=== PATIENT | female | born 1950 | race Caucasian/White ===

== ENCOUNTER → 2017-04-06 12:30 | Outpatient (CLI) | payer MEDICARE, OTHER, SELFPAY ==
[2017-04-06 16:33] LABS: AST(SGOT) 18 U/L (15-37); Alanine Aminotransfer ALT/SGPT 21 U/L (13-56); Albumin, Serum 4.1 g/dL (3.2-5.0); Alkaline Phosphatase 72 U/L (45-117); Anion Gap 11 (5-15); BUN 23 mg/dL (7-18); Calcium,Total 9.2 mg/dL (8.5-10.1); Chloride 104 mmol/L (98-107); Creatinine, Serum 1.28 mg/dL (0.55-1.02); EST Glomerular Filtration Rate 44 mL/min (>60); Est Glom Filt Rate - Afr Amer 53 mL/min (>60); Ferritin 268 ng/mL (8-252); GGTP 46 U/L (5-55); Globulin 4.2 g/dL (2.2-4.2); Glucose 153 mg/dL (74-106); Iron 76 ug/dL (50-170); Potassium 4.9 mmol/L (3.5-5.1); Protein, Total 8.3 g/dL (6.4-8.2); Sodium Level 136 mmol/L (136-145)
== END ==
PROVIDERS: Family Provider Family Medicine; PCP Family Medicine; Visit Provider Family Medicine
DX: K74.60 Unspecified cirrhosis of liver (principal)
CPT/HCPCS: 36415; 80053; 82140; 82728; 82977; 83540

== ENCOUNTER → 2017-06-05 13:50 | Outpatient (CLI) | payer MEDICARE, OTHER, SELFPAY ==
[2017-06-05 15:42] LABS: Absolute Lymphocyte Count 1.47 X10^3/ul (0.83-4.51); Absolute Neutrophil Count 5.2 X10^3/uL (2.0-7.7); Basophil# 0.04 X10^3/uL; Basophil% 0.5 % (0-1); Eosinophil# 0.12 X10^3/uL; Eosinophils% 1.6 % (0-5); Hematocrit 33.9 % (37-47); Hemoglobin 11.1 g/dl (12.0-15.0); Lymphocyte # 1.47 X10^3/ul (4.0); Lymphocyte % 20.1 % (19-41); Mean Corp Hgb Conc 32.7 g/gl (32-36); Mean Corpuscular Volume 94.7 fL (81-99); Mean Platelet Vol. 11.4 fl (6.2-12.0); Monocyte# 0.46 X10^3/uL; Monocyte% 6.3 % (0-10); Neutrophil # 5.19 X10^3/uL (2.7-7.7); Platelet Count 164 K/mm3 (150-450); RBC Distribution Width CV 14.4 % (11.6-14.6); RBC Distribution Width SD 47.3 fl (35.1-43.9); Red Blood Count 3.58 M/mm3 (4.2-5.4); White Blood Count 7.3 K/mm3 (4.4-11.0)
[2017-06-05 15:47] LABS: AST(SGOT) 17 U/L (15-37); Alanine Aminotransfer ALT/SGPT 20 U/L (13-56); Albumin, Serum 4.1 g/dL (3.2-5.0); Alkaline Phosphatase 93 U/L (45-117); Anion Gap 8 (5-15); BUN 20 mg/dL (7-18); BUN/Creat Ratio 16.3 RATIO (10-20); Calcium,Total 9.3 mg/dL (8.5-10.1); Chloride 106 mmol/L (98-107); Creatinine, Serum 1.23 mg/dL (0.55-1.02); EST Glomerular Filtration Rate 46 mL/min (>60); Est Glom Filt Rate - Afr Amer 56 mL/min (>60); Ferritin 169 ng/mL (8-252); Globulin 4.2 g/dL (2.2-4.2); Glucose 225 mg/dL (74-106); Iron 87 ug/dL (50-170); Potassium 4.7 mmol/L (3.5-5.1); Prealbumin 21.4 mg/dL (20.0-40.0); Protein, Total 8.3 g/dL (6.4-8.2); Sodium Level 140 mmol/L (136-145)
[2017-06-05 16:31] LABS: POSITIVE COUNT NO; POSITIVE DIFFERENTIAL NO; POSITIVE MORPHOLOGY NO
== END ==
PROVIDERS: Family Provider Family Medicine; PCP Family Medicine; Visit Provider Family Medicine
DX: E11.8 Type 2 diabetes mellitus with unspecified complications (principal); K74.60 Unspecified cirrhosis of liver
CPT/HCPCS: 80053; 82140; 82728; 83540; 84134; 85025

== ENCOUNTER → 2017-06-21 11:33 | Outpatient (CLI) | payer MEDICARE, OTHER, SELFPAY ==
[2017-06-21 14:39] LABS: Anion Gap 8 (5-15); BUN 28 mg/dL (7-18); BUN/Creat Ratio 22.8 RATIO (10-20); Calcium,Total 9.6 mg/dL (8.5-10.1); Chloride 102 mmol/L (98-107); Creatinine, Serum 1.23 mg/dL (0.55-1.02); EST Glomerular Filtration Rate 46 mL/min (>60); Est Glom Filt Rate - Afr Amer 56 mL/min (>60); Glucose 207 mg/dL (74-106); Potassium 5.7 mmol/L (3.5-5.1); Sodium Level 133 mmol/L (136-145)
== END ==
PROVIDERS: Family Medicine; Family Provider Family Medicine; PCP Family Medicine; Visit Provider Family Medicine
DX: G62.9 Polyneuropathy, unspecified (principal)
CPT/HCPCS: 36415; 80048

== ENCOUNTER → 2017-06-28 14:01 | Outpatient (CLI) | payer MEDICARE, OTHER, SELFPAY ==
--- NOTE | 2017-06-28 14:05 | ECHOCS_ITS ---
Reason For Study: ASHD Procedure This was a 2D Doppler, Color Flow transthoracic echocardiogram. The study was technically difficult. Due to body habitus. Contrast injection was performed. Exam performed in department. Left Ventricle Mild concentric left ventricular hypertrophy. The estimated ejection fraction is 65 %. Stage 1 diastolic dysfunction. No regional wall motion abnormalities noted. Right Ventricle Normal size and thickness. Normal systolic function. Atria The left atrium is mildly enlarged. Normal right atrium. Mitral Valve The mitral valve is structurally normal. No prolapse or stenosis seen. Tricuspid Valve Normal tricuspid valve. Unable to estimate RV systolic pressure due to inadequate jet, pulmonary artery pressure probably normal. Aortic Valve Normal aortic valve. Trisinus/trileaflet aortic valve. Pulmonic Valve The pulmonic valve is not well visualized. Great Vessels Normal aortic root. Normal arch. Normal inferior vena cava. Inferior vena cava collapse with sniff. Pericardium/Pleural No pericardial effusion. Medication 22 gauge I.V. with prn adaptor inserted into right arm. Diluted definity 3.0ml given slow IV push to enhance endocardial definition. MMode/2D Measurements & Calculations LVIDd: 4.4 cm IVSd: 1.3 cm Ao root diam: 3.6 cm LVIDs: 2.8 cm LVPWd: 1.3 cm RVDd: 2.5 cm FS: 35.0 % LAV(MOD-bp): 68.0 ml LA A4 area: 23.2 cm2 LAV(MOD-bp) Indexed: 34.3 ml/m2 LAV(MOD-sp2): 57.7 ml LAV(MOD-sp4): 69.4 ml Doppler Measurements & Calculations MV E max taqueria: 75.1 cm/sec Lat Peak E' Taqu[place]: 9.0 cm/sec Med Peak E' Taqu[place]: 5.4 cm/sec MV A max taqueria: 110.1 cm/sec E/E' lat: 8.3 E/E' med: 14.0 MV E/A: 0.68 Ao V2 max: 157.3 cm/sec LV V1 max: 143.1 cm/sec PA V2 max: 98.6 cm/sec Ao max P.9 mmHg LV V1 max P.2 mmHg Interpretation Summary Mild concentric left ventricular hypertrophy. The estimated ejection fraction is 65 %. Stage 1 diastolic dysfunction. The left atrium is mildly enlarged. Unable to estimate RV systolic pressure due to inadequate jet, pulmonary artery pressure probably normal. Compared to echo report dated 10/16/2015, no appreciable changes noted. The study was technically difficult. Contrast injection was performed. Ordering Physician: Lei Bullock Referring Physician: Lei Bullock Performed By: Hillary Javier RDCS, RVT
== END ==
PROVIDERS: Family Provider Family Medicine; PCP Family Medicine; Visit Provider Family Medicine
DX: I51.9 Heart disease, unspecified (principal); G62.9 Polyneuropathy, unspecified
CPT/HCPCS: 93306; Q9957; A4216; C8929

== ENCOUNTER → 2017-07-06 11:40 | Outpatient (CLI) | payer MEDICARE, OTHER, SELFPAY ==
[2017-07-06 14:20] LABS: Anion Gap 10 (5-15); BUN 35 mg/dL (7-18); Calcium,Total 8.7 mg/dL (8.5-10.1); Chloride 102 mmol/L (98-107); Creatinine, Serum 1.46 mg/dL (0.55-1.02); EST Glomerular Filtration Rate 38 mL/min (>60); Est Glom Filt Rate - Afr Amer 46 mL/min (>60); Glucose 208 mg/dL (74-106); Potassium 4.6 mmol/L (3.5-5.1); Sodium Level 135 mmol/L (136-145)
== END ==
PROVIDERS: Family Provider Family Medicine; PCP Family Medicine; Visit Provider Family Medicine
DX: I10 Essential (primary) hypertension (principal)
CPT/HCPCS: 36415; 80048

== ENCOUNTER 2017-09-07 14:01 | Emergency (ER) | payer MEDICARE, OTHER, SELFPAY ==
[2017-09-07 14:02] VITALS: BP 125/66; PULSE 88; RESP 14; TEMP 37; O2SAT 99; BMI 33.6
--- NOTE | 2017-09-07 14:25 | ED.VISSUMM ---
- ER Visit Summary Date of Service: 09/07/17 Chief Complaint: Back pain History of Present Illness: The patient is a [address] Pearce and Dr. Johnson. She reports she has chronic back pain that worsened 4 days ago. She denies any recent trauma. No fall, MVA, or change in activity. She reports that she is scheduled for a pain pump September 29. Currently she is on Ultram and gabapentin. She reports that she is not getting any relief from this. Patient complains of a sharp, burning pain in her lower back that radiates down the back and front of her legs to mid thigh. Is 10 out of 10 severity. Is worsened by movement. She denies any numbness or weakness in her legs. No problems with her bowels or her bladder. No groin numbness. No fever or chills. No abdominal pain. Physical Examination: Vitals: Stable. Afebrile. General: A&O x 3. NAD. Cardiovascular exam: Regular rate and rhythm, no murmur, rub or gallop. Respiratory exam: Clear to auscultation bilaterally. No wheezes or stridor. Abdominal exam: Soft, nontender, nondistended, normal bowel sounds. No peritoneal signs. Back: Diffuse moderate tenderness to palpation over the lumbar spine and the paraspinous musculature in the lumbar region. No point tenderness. Negative straight leg bilaterally. 5/5 DF, PF, EHL bilaterally. Normal sensation to light touch throughout. Extremity: No clubbing, cyanosis, or edema. Emergency Department Course and Treatment: An [facility] report was obtained which shows she has had 9 prescriptions for opiates in the past year. They have all been for tramadol. The last was in August 28 for [address] Pearce this was to last 25 days. Patient reports that she called Dr. Pearce before coming in. The patient was given a dose of morphine IM and Zofran p.o. Treatment Plan: Patient will be discharged with prescription for 12 Percocet and instructed to follow-up Dr. Pearce as soon as possible. The signs and symptoms of cauda equina syndrome were discussed and she was instructed to return for these. Disposition: To home in improved and stable condition. Impression: 1. Acute on chronic back pain. This note was generated with [employer] software. It may contain incorrect words, spelling, and punctuation that were not noted in review of the chart prior to signing ED Disposition - Plan for ED Patient: Disposition: Home or Assisted Living Chief Complaint: Back Instructions: ED Neck Back Pain General Prescriptions: Oxycodone HCl/Acetaminophen [Percocet 5/325] 1 tablet PO Q6H PRN PRN 3 Days #12 tablet PRN Reason: Pain Referrals: [facility] Pearce [NON-STAFF] - As soon as possible
[2017-09-07] MEDS: morphine 8 MG/ML Syringe IM (14:37)
[2017-09-07] MEDS: Ondansetron ODT 4 MG Tablet PO (14:37)
[2017-09-07 14:52] VITALS: BP 117/74; PULSE 86; RESP 16; O2SAT 94
== END 2017-09-07 15:17 | disposition home or self-care (01) ==
LOC: ED 14:55
PROVIDERS: Emergency Provider Emergency Medicine; Family Provider Family Medicine; PCP Family Medicine
DX: M54.5 Low back pain (principal); G89.29 Other chronic pain; I10 Essential (primary) hypertension; E11.9 Type 2 diabetes mellitus without complications; Z79.84 Long term (current) use of oral hypoglycemic drugs; Z79.899 Other long term (current) drug therapy
CPT/HCPCS: 96372; 99283

== ENCOUNTER → 2017-11-28 11:48 | Outpatient (CLI) | payer SELFPAY ==
[2017-11-28 14:33] LABS: ALB/GLOB Ratio 1.1 RATIO (0.9-2.4); AST(SGOT) 15 U/L (15-37); Alanine Aminotransfer ALT/SGPT 23 U/L (13-56); Albumin, Serum 3.9 g/dL (3.2-5.0); Alkaline Phosphatase 80 U/L (45-117); Anion Gap 11 (5-15); BUN 26 mg/dL (7-18); BUN/Creat Ratio 19.3 RATIO (10-20); Calcium,Total 9.3 mg/dL (8.5-10.1); Chloride 104 mmol/L (98-107); Creatinine, Serum 1.35 mg/dL (0.55-1.02); EST Glomerular Filtration Rate 41 mL/min (>60); Est Glom Filt Rate - Afr Amer 50 mL/min (>60); Globulin 3.5 g/dL (2.2-4.2); Glucose 319 mg/dL (74-106); Potassium 5.1 mmol/L (3.5-5.1); Protein, Total 7.4 g/dL (6.4-8.2); Sodium Level 139 mmol/L (136-145); Thyroid Stim Hormone (TSH) 1.12 uIU/mL (0.358-3.74)
== END ==
PROVIDERS: Family Provider Family Medicine; PCP Family Medicine; Visit Provider Family Medicine
DX: E11.8 Type 2 diabetes mellitus with unspecified complications (principal)
CPT/HCPCS: 36415; 80053; 84443

== ENCOUNTER 2017-11-28 13:19 | Emergency (ER) | payer MEDICARE, OTHER, SELFPAY ==
[2017-11-28 13:20] VITALS: BP 151/89; PULSE 99; RESP 22; TEMP 36.7; BMI 38.7
[2017-11-28] MEDS: Ondansetron 4 MG/2 ML Vial IM (14:19)
[2017-11-28] MEDS: morphine 10 MG/ML Syringe IM (14:19)
--- NOTE | 2017-11-28 15:24 | ED.DEP ---
ED Disposition - Plan for ED Patient: Chief Complaint: Back Instructions: ED Neck Back Pain General Referrals: Donovan Bullock MD [Primary Care Provider] - [facility] Pearce [NON-STAFF] -
--- NOTE | 2017-11-28 15:32 | ED.VISSUMM ---
- ER Visit Summary Date of Service: 11/28/17 Chief Complaint: Back pain History of Present Illness: The patient is a 67 F presenting with back pain. She states this has been ongoing for the past week and has been progressively worsening. She is scheduled to have a stimulator placed per pain management next week for chronic back pain. She was seen by her primary care physician today and sent in for IM pain medications. She is on gabapentin and [place] at home. She denies any new injury. Denies bowel or bladder incontinence. Denies numbness or weakness. Denies fever. Denies other complaints. Physical Examination: Vitals are stable. Patient is afebrile. Alert no acute distress. HEENT exam is unremarkable. Neck is supple. Lungs are clear and equal bilaterally. Heart is regular rate and rhythm. Abdomen is soft nontender nondistended. Back: Bilateral paraspinal lumbar muscle tenderness, no midline tenderness Extremities are unremarkable. Skin is warm and dry. No focal neurologic deficit. Normal strength and sensation Remainder of exam is unremarkable. Emergency Department Course and Treatment: Patient given morphine, Zofran IM. On reevaluation she has improvement of her symptoms. She is advised to follow-up with pain management. Advised to return to ED for worsening complaints. Disposition: Discharge home Impression: Acute on chronic back pain This note was generated with [employer] dictation software. It may contain incorrect words, spelling, and punctuation that were not noted in review of the chart prior to signing ED Disposition - Plan for ED Patient: Chief Complaint: Back Instructions: ED Neck Back Pain General Referrals: [facility] Pearce [NON-STAFF] - Donovan Bullock MD [Primary Care Provider] -
--- NOTE | 2017-11-28 15:35 | ED.DCSUM_ITS ---
- ER Visit Summary Date of Service: 11/28/17 Chief Complaint: Back pain History of Present Illness: The patient is a 67 F presenting with back pain. She states this has been ongoing for the past week and has been progressively worsening. She is scheduled to have a stimulator placed per pain management nex t week for chronic back pain. She was seen by her primary care physician today and sent in for IM pain medications. She is on gabapentin and [place] at home. She denies any new injury. Denies bowel or bladder incontinence. Denies numbness or weakness. Denies fever. Denies other complaints. Physical Examination: Vitals are stable. Patient is afebrile. Alert no acute distress. HEENT exam is unremarkable. Neck is supple. Lungs are clear and equal bilaterally. Heart is regular rate and rhythm. Abdomen is soft nontender nondistended. Back: Bilateral paraspinal lumbar muscle tenderness, no midline tenderness Extremities are unremarkable. Skin is warm and dry. No focal neurologic deficit. Normal strength and sensation Remainder of exam is unremarkable. Emergency Department Course and Treatment: Patient given morphine, Zofran IM. On reevaluation she has improvement of her symptoms. She is advised to follow- up with pain management. Advised to return to ED for worsening complaints. Disposition: Discharge home Impression: Acute on chronic back pain This note was generated with [employer] dictation software. It may contain incorrect words, spelling, and punctuation that were not noted in review of the chart prior to signing ED Disposition - Plan for ED Patient: Chief Complaint: Back Instructions: ED Neck Back Pain General Referrals: [facility] Pearce [NON-STAFF] - Donovan Bullock MD [Primary Care Provider] -
[2017-11-28 16:02] VITALS: BP 138/67; PULSE 69; RESP 16; O2SAT 96
== END 2017-11-28 16:03 | disposition home or self-care (01) ==
PROVIDERS: Emergency Provider Emergency Medicine; Family Provider Family Medicine; PCP Family Medicine
DX: M54.5 Low back pain (principal); G89.29 Other chronic pain; E11.9 Type 2 diabetes mellitus without complications; Z79.4 Long term (current) use of insulin; Z79.891 Long term (current) use of opiate analgesic; Z79.899 Other long term (current) drug therapy
CPT/HCPCS: 96372; 99282; J2405

== ENCOUNTER 2017-12-04 11:41 | Day surgery (SDC) | payer MEDICARE, OTHER, SELFPAY ==
[2017-12-04 12:14] VITALS: BP 151/69; PULSE 88; RESP 16; TEMP 36.7; O2SAT 99; BMI 38.7
[2017-12-04 12:26] LABS: Bedside Glucose 153 mg/dL (70-110)
--- NOTE | 2017-12-04 12:45 | RAD_ITS ---
PROCEDURE: Spinal cord stimulator placement. DATE OF EXAMINATION: December 04, 2017. INDICATION: Female, 67 years old. Chronic back pain. FLUOROSCOPY TIME (if supplied): (8 minutes and 15 seconds) minutes/seconds Intraoperative imaging provided for placement of the spinal cord stimulator device. RAD/Lumbar Spine 2 or 3 Views IMPRESSION: Intraoperative imaging provided for insertion of the spinal cord stimulator device. Electronically Signed: Waldemar Silva MD at 12:43 EDT Tel [phone], Service support ,
[2017-12-04] MEDS: Cefazolin 2 GM in 0.9% Normal Saline 100 ML IV (13:17)
[2017-12-04] MEDS: Bupivacaine Mpf 0.5% 30 ML VIAL (14:00)
[2017-12-04] MEDS: Bacitracin 500 UNITS/GM PACKET (15:03)
[2017-12-04 15:41] VITALS: BP 151/69; BP 98/59; PULSE 65; RESP 18; TEMP 36.4; O2SAT 94
[2017-12-04 15:45] VITALS: BP 109/58; BP 151/69; PULSE 68; RESP 18; O2SAT 92
[2017-12-04 16:00] VITALS: BP 104/60; BP 151/69; PULSE 63; RESP 18; O2SAT 99
[2017-12-04 16:16] VITALS: BP 111/57; BP 124/61; PULSE 66; RESP 18; TEMP 36.2; O2SAT 100
[2017-12-04 16:26] LABS: Bedside Glucose 166 mg/dL (70-110)
[2017-12-04 17:21] VITALS: BP 124/61; BP 127/78; PULSE 78; RESP 18; TEMP 36.6; O2SAT 98
--- NOTE | 2017-12-04 17:30 | PCM.OPRPT ---
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 Spinal cord stimulator thoracolumbar leads placement x2 #2 spinal cord stimulator Medtronic intellus generator placement #3 spinal cord stimulator generator pocket creation at the left gluteal region #4 spinal cord stimulator simple programming, fluoroscopic guidance and interpretation Description of Surgical Findings:: PROCEDURES: 1. Spinal cord stimulator thoracolumbar leads placement x2 #2 spinal cord stimulator Medtronic intellus generator placement #3 spinal cord stimulator generator pocket creation at the left gluteal region #4 spinal cord stimulator simple programming, fluoroscopic guidance and interpretation PREOPERATIVE DIAGNOSES: Lumbosacral radiculopathy, lumbosacral degenerative disc disease, lumbosacral spinal stenosis, postlaminectomy syndrome of the lumbar spine POSTOPERATIVE DIAGNOSES: Lumbosacral radiculopathy, lumbosacral degenerative disc disease, lumbosacral spinal stenosis, postlaminectomy syndrome of the lumbar spine ANESTHESIA: MAC COMPLICATIONS: None BLOOD LOSS: Minimal Implanted device: Spinal cord stimulator lead [id number] lot number [id number], lead #2 lot number [id number], Medtronic spinal cord stimulator generator intellus serial number [id number] PROCEDURE IN DETAIL: History and physical today was reviewed. Risks and benefits of procedure explained. The patient understood, agreed to procedure, informed consent was obtained. IV inserted per routine protocol. The patient was taken to the operating room, placed in the prone position with a pillow positioned underneath the abdomen. A 2 g of Ancef IV piggyback was infused per anesthesia. The lower back and left gluteal area was prepped and draped in a sterile fashion using iodine x3. The C-arm was brought in position for AP view at the L1-3 vertebral bodies under direct visualization fluoroscopy on a true AP view the L2-3 interlaminar space was identified skin and subcutaneous tissue and size approximately 10 cc of a mix of 2% lidocaine and 0.25% Marcaine using a 25-gauge regular needle followed by a 25-gauge 3-1/2 inch spinal needle towards the interlaminar space at L2-3, the skin and subcutaneous tissue were then anesthetized and using an 11-gauge blade was then taken down to the skin and subcutaneous tissue using a 14-gauge 3-1/2 inch Touhy needle provided by the Eng[employer] kit the needle was passed through the skin towards the interlaminar space at L2-3 and a paramedian approach the needle was then advanced under direct visualization fluoroscopy towards the interlaminar space at L2-3 [id number] technique was then carried to air towards the interlaminar space at L2-3 once the tip of the needle was in the epidural space and loss of resistance was encountered to air and after confirmation of AP as well as oblique view of the spinal cord stimulator lead was then advanced under direct visualization fluoroscopy to be at the tip of the lead at T8 and the bottom of the lead around mid T10 after confirmation of AP as well as lateral view to confirm correct placement of the lead in the posterior compartment of the epidural space the previous procedure was then repeated to a level above at L1-2 interlaminar space the second lead was then inserted under direct visualization with fluoroscopy to be at the mid T9 and mid T11 area the leads were were then connected to the external neurostimulator and patient was then awakened to confirm satisfactory coverage of the painful area once satisfactory coverage was then achieved the stylette of each needle was then removed and the skin and subcutaneous tissue on to the left of the paramedian needles was then taken anesthetized with a total of 10 cc of the previous mixture of 0.25% Marcaine and 2% lidocaine using a 25-gauge regular needle the incision was then taken down through the skin and subcutaneous tissue towards the fascia making sure hemostasis was then maintained via cautery the spinal cord stimulator leads were then passed through the above incision and secured using the bitewing and sutured down with a 2-0 nylon to the fascia at that level the spinal cord stimulator leads were then tunneled via a tunneler provided by the [employer] kit towards the previously incised spinal cord stimulator battery at the left gluteal region skin and subcutaneous tissue were anesthetized with approximately 10 cc of a mix of 2% lidocaine and 0.25% Marcaine using a 25 gauge regular needle, skin and subcutaneous tissue was then taken down with the 11-gauge blade hemostasis was maintained with Bovie and direct pressure the incision was then taken down to the fascia and the battery was then visualized the 2-0 nylon sutures that were the spinal cord stimulator leads the upper lead was then marked the new until spinal cord stimulator battery was then provided Via [employer] kit the battery was then reattached of the spinal cord stimulator make ensure that the top lead is attached to the top position from 0-7 electrodes and the bottom from 8-15 electrodes once impedance was then checked to be in the proper average number the intellus battery was then inserted into the pocket and impedance with when checked again the pocket was then inspected to confirm hemostasis in place, the entellus battery was then secured to the fascia using a 0-0 silk to the upper and lower eyes of the battery confirming an upward writing of the intellus facing posterior, once complete confirmation the battery was then placed in the position and the the mid paramedian and the gluteal incisions were then closed primarily through a 3-0 Vicryl in a running fashion followed by a 4-0 Vicryl to the skin, hemostasis was then maintained during the procedure the skin was then covered with a Steri-Strips and bacitracin patient was then returned into the supine position in a stable condition and returned to recovery in a stable condition patient experienced no sinus symptoms of intrathecal or intravascular injection patient experienced no paresthesia the procedure was completed without any apparent difficulty any complication the patient appeared to tolerate well ESTIMATED BLOOD LOSS: Minimal less than 25 mL ASSESSMENT AND PLAN: This is a 67-year-old female with lumbosacral radiculopathy lumbosacral degenerative disc disease lumbosacral spinal stenosis, postlaminectomy syndrome of the lumbar spine status post1. Spinal cord stimulator thoracolumbar leads placement x2 #2 spinal cord stimulator Medtronic intellus generator placement #3 spinal cord stimulator generator pocket creation at the left gluteal region #4 spinal cord stimulator simple programming fluoroscopic guidance and interpretation , patient will continue her current medications a prescription was provided to the patient for Percocet 5/325 1-2 p.o. every 6 hours as needed acute postoperative pain and Keflex 500 mg 1 p.o. every 8 hours for 7 days postop instruction were given in writing to the patient as well as verbally and in writing to her , the patient will follow approximately 1 week for reevaluation
--- NOTE | 2017-12-04 17:40 | OP.PCM_ITS ---
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 Spinal cord stimulator thoracolumbar leads placement x2 #2 spinal cord stimulator Medtronic intellus generator placement #3 spinal cord stimulator generator pocket creation at the left gluteal region #4 spinal cord stimulator simple programming, fluoroscopic guidance and interpretation Description of Surgical Findings:: PROCEDURES: 1. Spinal cord stimulator thoracolumbar leads placement x2 #2 spinal cord stimulator Medtronic intellus generator placement #3 spinal cord stimulator generator pocket creation at the left gluteal region #4 spinal cord stimulator simple programming, fluoroscopic guidance and interpretation PREOPERATIVE DIAGNOSES: Lumbosacral radiculopathy, lumbosacral degenerative disc disease, lumbosacral spinal stenosis, postlaminectomy syndrome of the lumbar spine POSTOPERATIVE DIAGNOSES: Lumbosacral radiculopathy, lumbosacral degenerative disc disease, lumbosacral spinal stenosis, postlaminectomy syndrome of the lumbar spine ANESTHESIA: MAC COMPLICATIONS: None BLOOD LOSS: Minimal Implanted device: Spinal cord stimulator lead [id number] lot number [id number], lead #2 lot number [id number], Medtronic spinal cord stimulator generator intellus serial number [id number] PROCEDURE IN DETAIL: History and physical today was reviewed. Risks and benefits of procedure explained. The patient understood, agreed to procedure, informed consent was obtained. IV inserted per routine protocol. The patient was taken to the operating room, placed in the prone position with a pillow positioned underneath the abdomen. A 2 g of Ancef IV piggyback was infused per anesthesia. The lower back and left gluteal area was prepped and draped in a sterile fashion using iodine x3. The C-arm was brought in position for AP view at the L1-3 vertebral bodies under direct visualization fluoroscopy on a true AP view the L2-3 interlaminar space was identified skin and subcutaneous tissue and size approximately 10 cc of a mix of 2% lidocaine and 0.25% Marcaine using a 25- gauge regular needle followed by a 25-gauge 3-1/2 inch spinal needle towards the interlaminar space at L2-3, the skin and subcutaneous tissue were then anesth etized and using an 11-gauge blade was then taken down to the skin and subcutaneous tissue using a 14-gauge 3-1/2 inch Touhy needle provided by the Iceotope kit the needle was passed through the skin towards the interlaminar space at L2-3 and a paramedian approach the needle was then advanced under direct visualization fluoroscopy towards the interlaminar space at L2-3 [id number] technique was then carried to air towards the interlaminar space at L2-3 once the tip of the needle was in the epidural space and loss of resistance was encountered to air and after confirmation of AP as well as oblique view of the spinal cord stimulator lead was then advanced under direct visualization fluoroscopy to be at the tip of the lead at T8 and the bottom of the lead around mid T10 after confirmation of AP as well as lateral view to confirm correct placement of the lead in the posterior compartment of the epidural space the previous procedure was then repeated to a level above at L1-2 interlaminar space the second lead was then inserted under direct visualization with fluoroscopy to be at the mid T9 and mid T11 area the leads were were then connected to the external neurostimulator and patient was then awakened to confirm satisfactory coverage of the painful area once satisfactory coverage was then achieved the stylette of each needle was then removed and the skin and subcutaneous tissue on to the left of the paramedian needles was then taken anesthetized with a total of 10 cc of the previous mixture of 0.25% Marcaine and 2% lidocaine using a 25-gauge regular needle the incision was then taken down through the skin and subcutaneous tissue towards the fascia making sure hemostasis was then maintained via cautery the spinal cord stimulator leads were then passed through the above incision and secured using the bitewing and sutured down with a 2-0 nylon to the fascia at that level the spinal cord stimulator leads were then tunneled via a tunneler provided by the Iceotope kit towards the previously incised spinal cord stimulator battery at the left gluteal region skin and subcutaneous tissue were anesthetized with approximately 10 cc of a mix of 2% lidocaine and 0.25% Marcaine using a 25 gauge regular needle, skin and subcutaneous tissue was then taken down with the 11-gauge blade hemostasis was maintained with Bovie and direct pressure the incision was then taken down to the fascia and the battery was then visualized the 2-0 nylon sutures that were the spinal cord stimulator leads the upper lead was then marked the new until spinal cord stimulator battery was then provided Via Iceotope kit the battery was then reattached of the spinal cord stimulator make ensure that the top lead is attached to the top position from 0-7 electrodes and the bottom from 8-15 electrodes once impedance was then checked to be in the proper average number the intellus battery was then inserted into the pocket and impedance with when checked again the pocket was then inspected to confirm hemostasis in place, the entellus battery was then secured to the fascia using a 0-0 silk to the upper and lower eyes of the battery confirming an upward writing of the intellus facing posterior, once complete confirmation the battery was then placed in the position and the the mid paramedian and the gluteal incisions were then closed primarily through a 3-0 Vicryl in a running fashion followed by a 4-0 Vicryl to the skin, hemostasis was then maintained during the procedure the skin was then covered with a Steri-Strips and bacitracin patient was then returned into the supine position in a stable condition and returned to recovery in a stable condition patient experienced no sinus symptoms of intrathecal or intravascular injection patient experienced no paresthesia the procedure was completed without any apparent difficulty any complication the patient appeared to tolerate well ESTIMATED BLOOD LOSS: Minimal less than 25 mL ASSESSMENT AND PLAN: This is a 67-year-old female with lumbosacral radiculopathy lumbosacral degenerative disc disease lumbosacral spinal stenosis, postlaminectomy syndrome of the lumbar spine status post1. Spinal cord stimulator thoracolumbar leads placement x2 #2 spinal cord stimulator Medtronic intellus generator placement #3 spinal cord stimulator generator pocket creation at the left gluteal region #4 spinal cord stimulator simple programming fluoroscopic guidance and interpretation , patient will continue her current medications a prescription was provided to the patient for Percocet 5/325 1-2 p.o. every 6 hours as needed acute postoperative pain and Keflex 500 mg 1 p.o. every 8 hours for 7 days postop instruction were given in writing to the patient as well as verbally and in writing to her , the patient will follow approximately 1 week for reevaluation
== END 2017-12-04 17:23 | disposition home or self-care (01) ==
LOC: SDC 11:42 → AC 12:28
PROVIDERS: Family Provider Family Medicine; PCP Family Medicine; Referring Provider Anesthesiology Pain Medicine; Visit Provider Anesthesiology Pain Medicine
PROC: (CPT 63685; principal; 2017-12-04 12:30)
DX: M51.17 Intervertebral disc disorders with radiculopathy, lumbosacral region (principal); M48.07 Spinal stenosis, lumbosacral region; M96.1 Postlaminectomy syndrome, not elsewhere classified; G89.29 Other chronic pain; I10 Essential (primary) hypertension; M06.9 Rheumatoid arthritis, unspecified; E11.9 Type 2 diabetes mellitus without complications; Z79.4 Long term (current) use of insulin; Z79.891 Long term (current) use of opiate analgesic; Z79.899 Other long term (current) drug therapy
CPT/HCPCS: 63650 ×2; 63685; 95971; 72100; 76000; 82962; J7120; J3490

== ENCOUNTER → 2018-01-01 14:05 | Outpatient (CLI) | payer MEDICARE, OTHER, SELFPAY ==
[2018-01-01 15:35] LABS: Hematocrit 31.1 % (37-47); Hemoglobin 10.4 g/dl (12.0-15.0); Mean Corp Hgb Conc 33.4 g/gl (32-36); Mean Corpuscular Hgb 31.4 pg (27.0-32.0); Mean Platelet Vol. 11.4 fl (6.2-12.0); Platelet Count 128 K/mm3 (150-450); RBC Distribution Width CV 14.5 % (11.6-14.6); RBC Distribution Width SD 47.2 fl (35.1-43.9); Red Blood Count 3.31 M/mm3 (4.2-5.4); White Blood Count 6.6 K/mm3 (4.4-11.0)
[2018-01-01 16:00] LABS: Scan Indicated on CBC? Y/N NO
[2018-01-01 16:38] LABS: ALB/GLOB Ratio 1.1 RATIO (0.9-2.4); AST(SGOT) 16 U/L (15-37); Alanine Aminotransfer ALT/SGPT 21 U/L (13-56); Alkaline Phosphatase 88 U/L (45-117); Anion Gap 10 (5-15); BUN 22 mg/dL (7-18); BUN/Creat Ratio 19.5 RATIO (10-20); Calcium,Total 8.8 mg/dL (8.5-10.1); Chloride 104 mmol/L (98-107); Creatinine, Serum 1.13 mg/dL (0.55-1.02); EST Glomerular Filtration Rate 51 mL/min (>60); Est Glom Filt Rate - Afr Amer 62 mL/min (>60); Ferritin 161 ng/mL (8-252); GGTP 45 U/L (5-55); Globulin 3.6 g/dL (2.2-4.2); Glucose 236 mg/dL (74-106); Iron 76 ug/dL (50-170); Potassium 4.6 mmol/L (3.5-5.1); Prealbumin 21.6 mg/dL (20.0-40.0); Protein, Total 7.6 g/dL (6.4-8.2); Sodium Level 140 mmol/L (136-145); Thyroid Stim Hormone (TSH) 1.36 uIU/mL (0.358-3.74)
== END ==
PROVIDERS: Family Provider Family Medicine; PCP Family Medicine; Visit Provider Family Medicine
DX: K74.60 Unspecified cirrhosis of liver (principal); M79.89 Other specified soft tissue disorders; I10 Essential (primary) hypertension
CPT/HCPCS: 36415; 80053; 82728; 82977; 83540; 84134; 84443; 85027

== ENCOUNTER → 2018-02-08 07:51 | Outpatient (CLI) | payer MEDICARE, OTHER, SELFPAY ==
--- NOTE | 2018-02-08 07:57 | CDU_ITS ---
Reason For Study: TIA, Z86.73 Rt. Velocities/BP Lt. Velocities/BP Prox CCA 86.8/18.8 cm/sec. Prox CCA 96.2/25.2 cm/sec. Mid CCA 69.2/16.4 cm/sec. Mid CCA 79.2/20.5 cm/sec. Dist CCA 56.9/18.8 cm/sec. Dist CCA 70.9/24.0 cm/sec. Prox ICA 58.0/21.7 cm/sec. Prox ICA 70.9/14.7 cm/sec. Mid ICA 81.5/31.1 cm/sec. Mid ICA 91.5/28.1 cm/sec. Dist ICA 87.4/31.1 cm/sec. Dist ICA 82.7/34.6 cm/sec. Rt. ICA/CCA = 1.3. Lt. ICA/CCA = 1.2. Prox ECA 125/16.5 cm/sec. Prox ECA 104/17.0 cm/sec. Rt. Vert. 56.3/20.5 cm/sec. Lt. Vert. 54.5/17.6 cm/sec. Right Extracranial There is intimal thickening but no significant atherosclerotic plaque noted in the right common carotid artery. There is intimal thickening but no significant atherosclerotic plaque noted in the right internal carotid artery. There is intimal thickening but no significant atherosclerotic plaque noted in the right external carotid artery. Antegrade flow is noted in the right vertebral artery. Left Extracranial There is intimal thickening but no significant atherosclerotic plaque noted in the left common carotid artery. There is intimal thickening but no significant atherosclerotic plaque noted in the left internal carotid artery. There is intimal thickening but no significant atherosclerotic plaque noted in the left external carotid artery. Antegrade flow is noted in the left vertebral artery. Procedure Carotid Duplex [id number]. The exam was diagnostic. Exam performed in department. Interpretation Summary No significant atherosclerotic plaque or stenosis noted in the internal carotid arteries bilaterally. Flow within the vertebral arteries is antegrade bilaterally. Ordering Physician: Lei Bullock Performed By: El Chung RVT
== END ==
PROVIDERS: Family Provider Family Medicine; PCP Family Medicine; Referring Provider Family Medicine; Visit Provider Family Medicine
DX: Z86.73 Personal history of transient ischemic attack (TIA), and cerebral infarction without residual deficits (principal)
CPT/HCPCS: 93880

== ENCOUNTER → 2018-02-09 14:50 | Outpatient (CLI) | payer MEDICARE, OTHER, SELFPAY ==
--- NOTE | 2018-02-09 14:52 | CT_ITS ---
STUDY: CT BRAIN WITHOUT CONTRAST REASON FOR EXAM: Female, 67 years old. TIA RADIATION DOSAGE (If Supplied By Facility): CTDIvol = ( 60.81 ) mGy, DLP = ( 1021.47 ) mGycm TECHNIQUE: Transaxial CT imaging of the brain was performed without administration of intravenous contrast material. Individualized dose optimization techniques were used for this CT. COMPARISON: January 05, 2016 CT head FINDINGS: Normal soft tissue structures. Normal calvarium. There is mild cerebral atrophy with widening of the extra-axial spaces and ventricular dilatation. There are areas of decreased attenuation within the white matter tracts of the supratentorial brain, consistent with microvascular disease changes. Normal basal ganglia and thalami. Normal brainstem. There is mild cerebellar atrophy. There is no intracranial hemorrhage. There are no findings of an acute ischemic infarction. Normal visualized paranasal sinuses. There is calcification of the bilateral cavernous carotid arteries. CT/Brain/Head without Contrast IMPRESSION: Atrophy. No visualized evidence of acute hemorrhage infarct or edema. Electronically Signed: Reshma Ramírez MD at 20:06 EST Tel , Service support ,
== END ==
PROVIDERS: Family Provider Family Medicine; PCP Family Medicine; Referring Provider Family Medicine; Visit Provider Family Medicine
DX: Z86.73 Personal history of transient ischemic attack (TIA), and cerebral infarction without residual deficits (principal)
CPT/HCPCS: 70450

== ENCOUNTER → 2018-07-18 14:50 | Outpatient (CLI) | payer MEDICARE, OTHER, SELFPAY ==
[2018-07-18 16:07] LABS: Hematocrit 31.8 % (37-47); Hemoglobin 10.9 g/dl (12.0-15.0); Mean Corp Hgb Conc 34.3 g/gl (32-36); Mean Corpuscular Hgb 30.7 pg (27.0-32.0); Mean Corpuscular Volume 89.6 fL (81-99); Mean Platelet Vol. 11.6 fl (6.2-12.0); Platelet Count 125 K/mm3 (150-450); RBC Distribution Width SD 44.7 fl (35.1-43.9); Red Blood Count 3.55 M/mm3 (4.2-5.4); White Blood Count 6.4 K/mm3 (4.4-11.0)
[2018-07-18 16:08] LABS: Scan Indicated on CBC? Y/N NO
[2018-07-18 16:33] LABS: Anion Gap 11 (5-15); BUN 24 mg/dL (7-18); BUN/Creat Ratio 18.6 RATIO (10-20); Calcium,Total 8.9 mg/dL (8.5-10.1); Chloride 105 mmol/L (98-107); Creatinine, Serum 1.29 mg/dL (0.55-1.02); EST Glomerular Filtration Rate 43 mL/min (>60); Est Glom Filt Rate - Afr Amer 53 mL/min (>60); Glucose 363 mg/dL (74-106); Potassium 4.7 mmol/L (3.5-5.1); Sodium Level 138 mmol/L (136-145)
[2018-07-18 16:53] LABS: Vitamin D,25 Hydroxy 14.5 ng/mL (29.95-100.01)
== END ==
PROVIDERS: Family Provider Family Medicine; PCP Family Medicine; Referring Provider Family Medicine; Visit Provider Family Medicine
DX: N18.9 Chronic kidney disease, unspecified (principal)
CPT/HCPCS: 36415; 80048; 82306; 85027

== ENCOUNTER → 2018-10-09 11:59 | Outpatient (CLI) | payer MEDICARE, OTHER, SELFPAY ==
[2018-10-09 14:05] LABS: Ferritin 181 ng/mL (8-252); Iron 88 ug/dL (50-170)
== END ==
PROVIDERS: Family Provider Family Medicine; PCP Family Medicine; Referring Provider Family Medicine; Visit Provider Family Medicine
DX: D64.9 Anemia, unspecified (principal); E55.9 Vitamin D deficiency, unspecified
CPT/HCPCS: 36415; 82306; 82728; 83540

== ENCOUNTER 2018-11-04 17:33 | Emergency (ER) | payer MEDICARE, OTHER, SELFPAY ==
[2018-11-04 17:34] VITALS: BP 136/92; PULSE 99; RESP 22; TEMP 36.2; O2SAT 99; BMI 35.7
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
[2018-11-04] MEDS: Ondansetron 4 MG/2 ML Vial IV (18:12)
[2018-11-04] MEDS: morphine 8 MG/ML Syringe IV (18:12)
[2018-11-04 19:09] VITALS: BP 122/68; PULSE 80; RESP 18; O2SAT 97
[2018-11-04 19:10] VITALS: PULSE 82; RESP 18; O2SAT 97
== END 2018-11-04 19:11 | disposition home or self-care (01) ==
PROVIDERS: Emergency Provider Emergency Medicine; Family Provider Family Medicine; PCP Family Medicine
DX: M54.5 Low back pain (principal); G89.29 Other chronic pain; E11.9 Type 2 diabetes mellitus without complications; I10 Essential (primary) hypertension; E78.5 Hyperlipidemia, unspecified; E66.9 Obesity, unspecified; Z68.35 Body mass index [BMI] 35.0-35.9, adult; Z79.4 Long term (current) use of insulin; Z79.84 Long term (current) use of oral hypoglycemic drugs; Z79.899 Other long term (current) drug therapy
CPT/HCPCS: 96374; 96375; 99283; A4216; J2405

== ENCOUNTER → 2018-11-08 10:49 | Outpatient (CLI) | payer MEDICARE, OTHER, SELFPAY ==
[2018-11-04 17:34] VITALS: BMI 35.7
--- NOTE | 2018-11-08 10:53 | RAD_ITS ---
STUDY: X-RAY - LUMBAR SPINE REASON FOR EXAM: Female, 68 years old. Spinal cord stimulator placement. TECHNIQUE: 5 view(s) of the lumbar spine were obtained including oblique views. COMPARISON: None FINDINGS: Normal lumbar lordosis. There is no substantial scoliosis. Grade 1 anterior listhesis of L4 on L5. Prior laminectomy at the L2-L3, L3-L4 and L4-L5 levels. There is multilevel endplate spondylosis of the lumbar vertebrae. There is multi-level degenerative disc disease with multi-level disc space narrowing. Facet joint osteoarthritis. Deformity of the L4 vertebrae most likely secondary to prior trauma. There is atherosclerotic calcification of the abdominal aorta without a demonstrated aneurysm. Spinal cord stimulator is seen overlying the left mid abdomen. The tip of the electrodes is at the T9-T10 level. RAD/L/S Spine Min 4 Views IMPRESSION: Degenerative changes of the spine, as detailed above. Grade 1 anterior listhesis of L4 on L5. A spinal cord stimulator device is seen. Electronically Signed: Waldemar Silva, at 15:29 EDT , Service support ,
--- NOTE | 2018-11-08 10:53 | RAD_ITS ---
STUDY: X-RAY - THORACIC SPINE REASON FOR EXAM: Female, 68 years old. Chronic back pain. TECHNIQUE: 2 view(s) of the thoracic spine were obtained. COMPARISON: None. FINDINGS: Normal kyphosis of the thoracic spine. There is no substantial scoliosis. There is demineralization of the thoracic spine with endplate spondylosis. There is multilevel disc space narrowing of the thoracic spine. The tip of the electrodes from the left-sided spinal cord stimulator is at the T7-T8 level. RAD/Thoracic Spine 2 Views IMPRESSION: Multilevel spondylosis and disc space narrowing. The electrodes of the spinal cord stimulator are seen at the T7-T8 level. Electronically Signed: Waldemar Silva, at 15:31 EDT , Service support ,
== END ==
PROVIDERS: Family Provider Family Medicine; PCP Family Medicine; Referring Provider Anesthesiology Pain Medicine; Visit Provider Anesthesiology Pain Medicine
DX: M51.37 Other intervertebral disc degeneration, lumbosacral region (principal)
CPT/HCPCS: 72070; 72072; 72100; 72110

== ENCOUNTER → 2018-11-19 12:48 | Outpatient (CLI) | payer MEDICARE, OTHER, SELFPAY ==
[2018-11-04 17:34] VITALS: BMI 35.7
[2018-11-19 13:54] LABS: Absolute Lymphocyte Count 1.16 X10^3/uL (0.83-4.51); Absolute Neutrophil Count 4.5 X10^3/uL (2.0-7.7); Basophil# 0.03 X10^3/uL; Basophil% 0.5 % (0-1); Eosinophil# 0.11 X10^3/uL; Eosinophils% 1.7 % (0-5); Hematocrit 29.6 % (37-47); Hemoglobin 9.7 g/dL (12.0-15.0); Lymphocyte # 1.16 X10^3/ul (4.0); Lymphocyte % 18.2 % (19-41); Mean Corp Hgb Conc 32.8 g/dL (32-36); Mean Corpuscular Hgb 30.9 pg (27.0-32.0); Mean Corpuscular Volume 94.3 fL (81-99); Mean Platelet Vol. 10.8 fl (6.2-12.0); Monocyte# 0.54 X10^3/uL; Monocyte% 8.5 % (0-10); NRBC Flagged by Analyzer 0 % (0-5); Neutrophil # 4.49 X10^3/uL (2.7-7.7); Neutrophil % 70.6 % (47-70); Platelet Count 106 K/mm3 (150-450); RBC Distribution Width CV 14.5 % (11.6-14.6); Red Blood Count 3.14 M/mm3 (4.2-5.4); White Blood Count 6.4 K/mm3 (4.4-11.0)
[2018-11-19 14:34] LABS: ALB/GLOB Ratio 0.9 RATIO (0.9-2.4); AST(SGOT) 14 U/L (15-37); Alanine Aminotransfer ALT/SGPT 13 U/L (13-56); Albumin, Serum 3.4 g/dL (3.2-5.0); Alkaline Phosphatase 76 U/L (45-117); Anion Gap 7 (5-15); BUN 27 mg/dL (7-18); BUN/Creat Ratio 19.9 RATIO (10-20); Calcium,Total 9.4 mg/dL (8.5-10.1); Chloride 106 mmol/L (98-107); Cholesterol 142 mg/dL (200); Creatinine, Serum 1.36 mg/dL (0.55-1.02); EST Glomerular Filtration Rate 41 mL/min (>60); Est Glom Filt Rate - Afr Amer 49 mL/min (>60); Globulin 3.7 g/dL (2.2-4.2); Glucose 245 mg/dL (74-106); High Density Lipoprotein 26 mg/dL; Potassium 4.8 mmol/L (3.5-5.1); Protein, Total 7.1 g/dL (6.4-8.2); Sodium Level 137 mmol/L (136-145); Thyroid Stim Hormone (TSH) 1.67 uIU/mL (0.358-3.74); Triglycerides 264 mg/dL; Very Low Density Lipoprotein 53 mg/dL (5-40)
== END ==
PROVIDERS: Family Provider Family Medicine; PCP Family Medicine; Referring Provider Family Medicine; Visit Provider Family Medicine
DX: M79.89 Other specified soft tissue disorders (principal); E11.8 Type 2 diabetes mellitus with unspecified complications
CPT/HCPCS: 36415; 80053; 80061; 84443; 85025

== ENCOUNTER 2019-01-28 09:50 | Emergency (ER) | payer MEDICARE, OTHER, SELFPAY ==
[2019-01-28 09:51] VITALS: BP 133/64; PULSE 89; RESP 17; TEMP 36.8; O2SAT 99; BMI 36.1
[2019-01-28 10:02] VITALS: O2SAT 95
--- NOTE | 2019-01-28 10:16 | RAD_ITS ---
STUDY: X-RAY CHEST REASON FOR EXAM: Female, 68 years old. 5 day history of nonproductive cough. TECHNIQUE: PA and lateral views of the chest. COMPARISON: Comparison is made with prior study dated January 11, 2017 and November 23, 2015. FINDINGS: The lungs are clear and expanded. There is no demonstrated pleural abnormality. Normal size heart. Normal mediastinum and robert. Normal visualized pulmonary arteries. There is atherosclerotic calcification of the aortic arch with tortuosity. There are diffuse degenerative changes of the visualized thoracic spine. A TENS unit is present with the tip of the electrodes at the T7-T8 level. Normal visualized ribs, clavicles, and shoulders. There is no demonstrated abnormality of the visualized soft tissue structures of the upper abdomen. RAD/Chest PA and Lateral IMPRESSION: No acute abnormality is seen. Electronically Signed: Waldemar Silva, at 11:00 EST , Service support ,
--- NOTE | 2019-01-28 10:16 | ED.DCSUM_ITS ---
- ER Visit Summary Date of Service: 01/28/19 Chief Complaint: Cough History of Present Illness: The patient is a 68 F history of insulin-dependent diabetes, hypertension, renal insufficiency, anemia and chronic pain for which she sees pain management. Patient states she is had a persistent cough for last 5 days is nonproductive. She has had some chills. No fever. No shortness of breath. Physical Examination: Older female no acute distress vital signs are stable afebrile. Pulse ox 9 9% on room air no signs hypoxia. HEENT exam unremarkable. Neck nontender. Lungs clear to auscultation bilaterally. Dry hacking cough. No rales, rhonchi or wheezing. Equal symmetrical. She does have splinting to the chest wall pain on the left is reproducible. Abdomen is soft. No peritoneal signs. Patient is moving all 4 extremities. Calves are nontender without edema. Neurologically she is awake and alert. Test Results: Chest x-ray 2 views AP lateral read by myself the radiologist showed no acute abnormality. No pneumonia. Emergency Department Course and Treatment: Patient has chronic pain. She has a cough and will obtain chest x-ray to evaluate for possible pneumonia. Clinically I do not hear any signs of pneumonia. Treatment Plan: Repeat exam no change. Patient be started on Hycodan for her cough. Disposition: Discharge Impression: Viral URI. This note was generated with [employer] dictation software. It may contain incorrect words, spelling, and punctuation that were not noted in review of the chart prior to signing ED Disposition - Plan for ED Patient: Referrals: Donovan Bullock MD [Primary Care Provider] -
--- NOTE | 2019-01-28 11:11 | ED.DEP ---
ED Disposition - Plan for ED Patient: Disposition: Home or Assisted Living Instructions: BRONCHITIS, No Antibiotic (Adult) Prescriptions: Hydrocodone Bit/Homatropine [Hycodan Syrup] 5 ml GT Q4H PRN PRN #[id number] udc PRN Reason: Cough Prescription Printed Referrals: Donovan Bullock MD [Primary Care Provider] - 3-5 Days if not improving Additional Instructions: Hycodan for cough. Follow-up with your doctor.
[2019-01-28 11:32] VITALS: PULSE 83; RESP 16; O2SAT 94
--- NOTE | 2019-01-28 11:33 | ED.RN ---
DISCHARGE INSTRUCTIONS GIVEN TO AND REVIEWED WITH PATIENT, PATIENT DENIES QUESTIONS OR CONCERNS AND VOICES UNDERSTANDING OF DISCHARGE INSTRUCTIONS. PT AMBULATES OUT OF ROOM WITHOUT DIFFICULTY.
== END 2019-01-28 11:35 | disposition home or self-care (01) ==
PROVIDERS: Emergency Provider Emergency Medicine; Family Provider Family Medicine; PCP Family Medicine
DX: J06.9 Acute upper respiratory infection, unspecified (principal); I10 Essential (primary) hypertension; E11.9 Type 2 diabetes mellitus without complications; Z79.4 Long term (current) use of insulin; Z79.84 Long term (current) use of oral hypoglycemic drugs; Z79.899 Other long term (current) drug therapy
CPT/HCPCS: 71046; 99283

== ENCOUNTER → 2019-07-03 11:15 | Outpatient (CLI) | payer MEDICARE, OTHER, SELFPAY ==
[2019-07-03 15:24] LABS: Absolute Lymphocyte Count 1.53 X10^3/uL (0.83-4.51); Basophil# 0.04 X10^3/uL; Basophil% 0.6 % (0-1); Eosinophil# 0.16 X10^3/uL; Eosinophils% 2.6 % (0-5); Hematocrit 33.8 % (37-47); Hemoglobin 11.2 g/dL (12.0-15.0); Lymphocyte # 1.53 X10^3/ul (4.0); Lymphocyte % 24.5 % (19-41); Mean Corp Hgb Conc 33.1 g/dL (32-36); Mean Corpuscular Hgb 30.2 pg (27.0-32.0); Mean Corpuscular Volume 91.1 fL (81-99); Mean Platelet Vol. 11.6 fl (6.2-12.0); Monocyte# 0.53 X10^3/uL; Monocyte% 8.5 % (0-10); NRBC Flagged by Analyzer 0 % (0-5); Neutrophil # 3.97 X10^3/uL (2.7-7.7); Neutrophil % 63.5 % (47-70); Platelet Count 105 K/mm3 (150-450); RBC Distribution Width CV 14.9 % (11.6-14.6); RBC Distribution Width SD 49.4 fl (35.1-43.9); Red Blood Count 3.71 M/mm3 (4.2-5.4); White Blood Count 6.3 K/mm3 (4.4-11.0)
[2019-07-03 15:55] LABS: ALB/GLOB Ratio 1.2 RATIO (0.9-2.4); AST(SGOT) 22 U/L (15-37); Alanine Aminotransfer ALT/SGPT 18 U/L (13-56); Albumin, Serum 4.1 g/dL (3.2-5.0); Alkaline Phosphatase 75 U/L (45-117); Anion Gap 7 (5-15); BUN 26 mg/dL (7-18); BUN/Creat Ratio 21.3 RATIO (10-20); Calcium,Total 9.4 mg/dL (8.5-10.1); Chloride 110 mmol/L (98-107); Cholesterol 154 mg/dL (200); Creatinine, Serum 1.22 mg/dL (0.55-1.02); EST Glomerular Filtration Rate 46 mL/min (>60); Est Glom Filt Rate - Afr Amer 56 mL/min (>60); Globulin 3.5 g/dL (2.2-4.2); Glucose 125 mg/dL (74-106); High Density Lipoprotein 29 mg/dL; Potassium 5.2 mmol/L (3.5-5.1); Protein, Total 7.6 g/dL (6.4-8.2); Sodium Level 139 mmol/L (136-145); Thyroid Stim Hormone (TSH) 1.64 uIU/mL (0.358-3.74); Triglycerides 174 mg/dL; Very Low Density Lipoprotein 35 mg/dL (5-40)
[2019-07-04 09:41] LABS: Hepatitis C Antibody Non-Reactive (Nonreactive)
== END ==
PROVIDERS: PCP Family Medicine; Visit Provider Family Medicine
DX: I10 Essential (primary) hypertension (principal); K74.60 Unspecified cirrhosis of liver; E55.9 Vitamin D deficiency, unspecified; E78.00 Pure hypercholesterolemia, unspecified; E11.8 Type 2 diabetes mellitus with unspecified complications; Z11.59 Encounter for screening for other viral diseases
CPT/HCPCS: 36415; 80053; 80061; 82306; 84443; 85025; 86803

== ENCOUNTER → 2020-01-02 10:54 | Outpatient (CLI) | payer MEDICARE, OTHER, SELFPAY ==
[2020-01-02 13:22] LABS: AST(SGOT) 21 U/L (15-37); Alanine Aminotransfer ALT/SGPT 25 U/L (13-56); Albumin, Serum 4.2 g/dL (3.2-5.0); Alkaline Phosphatase 75 U/L (45-117); Anion Gap 5 (5-15); BUN 28 mg/dL (7-18); BUN/Creat Ratio 22.2 RATIO (10-20); Bilirubin, Direct 0.27 mg/dL (0.00-0.30); Calcium,Total 9.5 mg/dL (8.5-10.1); Chloride 109 mmol/L (98-107); Creatinine, Serum 1.26 mg/dL (0.55-1.02); EST Glomerular Filtration Rate 44 mL/min (>60); Est Glom Filt Rate - Afr Amer 54 mL/min (>60); Glucose 136 mg/dL (74-106); Potassium 5.2 mmol/L (3.5-5.1); Protein, Total 8.2 g/dL (6.4-8.2); Sodium Level 137 mmol/L (136-145)
[2020-01-02 13:23] LABS: Vitamin D,25 Hydroxy 35.4 ng/mL
[2020-01-02 13:38] LABS: Hemoglobin A1c 6.7 % (3.8-5.6)
== END ==
PROVIDERS: PCP Family Medicine; Referring Provider Family Medicine; Visit Provider Family Medicine
DX: E11.8 Type 2 diabetes mellitus with unspecified complications (principal); K74.60 Unspecified cirrhosis of liver; E55.9 Vitamin D deficiency, unspecified
CPT/HCPCS: 36415; 80048; 80076; 82306; 83036

== ENCOUNTER → 2020-05-20 11:34 | Outpatient (CLI) | payer MEDICARE, OTHER, SELFPAY ==
[2020-05-20 15:39] LABS: Hematocrit 36.2 % (37-47); Hemoglobin 11.7 g/dL (12.0-15.0); Mean Corp Hgb Conc 32.3 g/dL (32-36); Mean Corpuscular Hgb 29.8 pg (27.0-32.0); Mean Corpuscular Volume 92.3 fL (81-99); Mean Platelet Vol. 12.2 fl (6.2-12.0); Platelet Count 128 K/mm3 (150-450); RBC Distribution Width SD 47.5 fl (35.1-43.9); Red Blood Count 3.92 M/mm3 (4.2-5.4); White Blood Count 5.7 K/mm3 (4.4-11.0)
[2020-05-20 16:02] LABS: AST(SGOT) 26 U/L (15-37); Alanine Aminotransfer ALT/SGPT 27 U/L (13-56); Albumin, Serum 3.9 g/dL (3.2-5.0); Alkaline Phosphatase 90 U/L (45-117); Anion Gap 3 (5-15); BUN 28 mg/dL (7-18); BUN/Creat Ratio 21.4 RATIO (10-20); Calcium,Total 9.5 mg/dL (8.5-10.1); Chloride 104 mmol/L (98-107); Cholesterol 159 mg/dL (200); Creatinine, Serum 1.31 mg/dL (0.55-1.02); EST Glomerular Filtration Rate 42 mL/min (>60); Est Glom Filt Rate - Afr Amer 51 mL/min (>60); Glucose 255 mg/dL (74-106); High Density Lipoprotein 32 mg/dL; Potassium 4.2 mmol/L (3.5-5.1); Protein, Total 7.9 g/dL (6.4-8.2); Sodium Level 136 mmol/L (136-145); Thyroid Stim Hormone (TSH) 1.16 uIU/mL (0.358-3.74); Triglycerides 276 mg/dL; Very Low Density Lipoprotein 55 mg/dL (5-40); Vitamin D,25 Hydroxy 34.5 ng/mL
== END ==
PROVIDERS: PCP Family Medicine; Referring Provider Family Medicine; Visit Provider Family Medicine
DX: E11.22 Type 2 diabetes mellitus with diabetic chronic kidney disease (principal); N18.30 Chronic kidney disease, stage 3 unspecified
CPT/HCPCS: 36415; 80053; 80061; 82306; 84443; 85027

== ENCOUNTER 2020-08-21 00:39 | Inpatient (IN) | payer MEDICARE, SELFPAY ==
[2020-08-21] VITALS (31 sets, daily range): BP systolic 100–143; BP diastolic 55–84; PULSE 59–104; RESP 9–22; TEMP 35.9–36.9; O2SAT 92–99; BMI 31.5; BMI 33.6
--- NOTE | 2020-08-21 00:51 | EKG12_ITS ---
Test Reason : CP Blood Pressure : / mmHG Vent. Rate : 083 BPM Atrial Rate : 083 BPM P-R Int : 198 ms QRS Dur : 116 ms QT Int : 390 ms P-R-T Axes : 044 -17 119 degrees QTc Int : 458 ms Sinus rhythm with sinus arrhythmia with occasional Premature ventricular complexes Possible Inferior infarct , age undetermined ST & T wave abnormality, consider lateral ischemia Abnormal ECG Confirmed by TYLER ROBLES, CHARITO ([id number]), department editor GEOVANNI FRANCO ([id number]) on 08/21/2020 1:01:48 PM Referred By: RUBINA Confirmed By:CHARITO SCOTT MD
--- NOTE | 2020-08-21 00:51 | RAD_ITS ---
STUDY: X-RAY CHEST REASON FOR EXAM: Female, 70 years old. chest pain TECHNIQUE: Single AP portable view of the chest. COMPARISON: 01/28/2019. FINDINGS: The lungs are clear and expanded. There is no demonstrated pleural abnormality. There is mild cardiac enlargement. Normal mediastinum and robert. Normal visualized pulmonary arteries. Normal visualized aortic arch and descending thoracic aorta. There are diffuse degenerative changes of the visualized thoracic spine. There is degenerative osteoarthritis of the bilateral shoulders. There is no demonstrated abnormality of the visualized soft tissue structures of the upper abdomen. RAD/Chest 1 View (Portable) IMPRESSION: No acute cardiopulmonary disease. Electronically Signed: Marina Farah MD at 1:36 EDT , Service support ,
--- NOTE | 2020-08-21 00:51 | EDS_ITS ---
HPI History of Present Illness Chief Complaint: Chest Pain Narrative Narrative: Patient presents with chest pain that started about 2 to 3 hours ago. It is left-sided it is aching. She seems in some distress. She has no fever chills cough or congestion. The pain does not radiate into her back but it does radiate into the left side of her chest laterally. She has no back pain or tearing sensation. She does not have a pleuritic component. [facility] Medical History (Updated 08/21/20 @ 01:[address] Hipolito Arreola MD) Cholecystectomy planned Diabetes Home Medications Metformin HCl 1,000 mg PO BID 02/06/16 [History Last Taken 11/04/18] gabapentin 800 mg PO TIDCM 02/06/16 [History Last Taken 11/04/18] furosemide 40 mg PO DAILY 09/07/17 [History Last Taken 11/04/18] lisinopril 2.5 mg PO DAILY 09/07/17 [History Last Taken 11/04/18] spironolactone [Aldactone] 100 mg PO DAILY 09/07/17 [History Last Taken 11/04/18] tramadol 50 mg PO Q6H PRN PRN 11/04/18 [History Last Taken 11/04/18] flash glucose sensor [FreeStyle Allyson 14 Day Sensor] 08/21/20 [History Last Taken Unknown] Allergy/AdvReac Type Severity Reaction Status Date / Time adhesive tape AdvReac TEARS SKIN Verified 11/04/18 17:34 Social History Smoking Status: Never smoker ROS ROS ED ROS Narrative Past medical history: Reviewed, includes diabetes, hypertension, hypercholesterolemia, history of cirrhosis, anxiety and depression Medications: Reviewed Social history: Noncontributory Review of systems: All systems negative except as indicated General: No fever Eyes: No visual changes ENT: No upper airway congestion, normal voice Neck: No neck pain Cardiovascular: Chest pain as in HPI Respiratory: No shortness of breath or cough Gastrointestinal: No abdominal pain, nausea vomiting or diarrhea Genitourinary: No dysuria Musculoskeletal: Denies myalgias no difficulty with ambulation Skin: No rash Neurological: No memory loss, confusion or any focal weakness Psych: No recent behavioral changes Hematologic: No easy bleeding or easy bruising EXAM Physical Exam Narrative Exam Narrative: Physical exam General: Patient does appear in some distress Head: Normocephalic, Atraumatic Eyes: Conjunctiva not pale ENT: Moist mucous membranes Neck: Supple, Nontender, No lymphadenopathy Cardiovascular: Regular rate, Regular rhythm Respiratory: No distress, CTA bilaterally Abdomen: Soft, Nontender, Nondistended Back: Nontender, Normal Inspection. Negative for: CVA tenderness Extremities: Nontender, No edema Skin: Normal color, No rash Neurological: Alert, Normal Strength, Normal Sensation Psychological: Normal affect Const Vital Signs: 08/21/20 00:41 08/21/20 00:45 08/21/20 00:52 Temperature 96.6 F L Temperature Source Temporal Pulse Rate 104 H Respiratory Rate 16 Respiratory Effort Short of Breath Pulse Ox 96 98 Oxygen Delivery Method Room Air Room Air MDM MDM MDM Narrative Medical decision making narrative: Patient's EKG does not show any acute ST elevation, it is nonspecific however her troponin is elevated. I discussed with cardiology we will start a heparin drip, possibly a nitroglycerin drip if her blood pressure improves. I will admit her. She has significant improvement of her pain but it is not completely gone. Lab Data Labs: Laboratory Results - last 24 hr 08/21/20 08/21/20 08/21/20 00:34 00:34 00:34 WBC 9.3 RBC 4.58 Hgb 13.4 Hct 40.9 MCV 89.3 MCH 29.3 MCHC 32.8 RDW Std Deviation 47.7 H RDW Coeff of Monster 14.7 H Plt Count 153 MPV 11.1 Immature Gran % (Auto) 0.500 Neut % (Auto) 62.4 Lymph % (Auto) 25.8 [place] % (Auto) 9.6 Eos % (Auto) 1.3 Baso % (Auto) 0.4 Absolute Neuts (auto) 5.8 Absolute Lymphs (auto) 2.40 Nucleated RBC % 0 APTT 35.9 Sodium 134 L Potassium 4.2 Chloride 102 Carbon Dioxide 23.0 Anion Gap 9 BUN 39 H Creatinine 2.15 H Estim Creat Clear Calc 19.57 Est GFR (MDRD) Af Amer 29 L Est GFR (MDRD) Non-Af 24 L BUN/Creatinine Ratio 18.1 Glucose 153 H Calcium 9.4 Troponin I High Sens 384.7 H* Radiography Chest X-Ray - ED: 1 View, Read by ED Physician and Normal Diagnostic Testing: Radiology Impression Chest X-Ray 08/21/20 00:51 IMPRESSION: No acute cardiopulmonary disease. Electronically Signed: Marina Farah MD at 1:36 EDT , Service support , EKG Initial EKG: Attestation: I personally reviewed and interpreted this EKG as follows: Comments: Sinus rhythm with a rate of 83. Normal IN and QTc intervals. Lateral ST flattening. Otherwise unremarkable EKG. 1 PVC is seen. Critical Care Time Critical care time (excluding procedures): 30-74 minutes, Discussing w/Patient &/or Family/Outreach Coordinator, Discussing w/Consultants, Arranging Admission or Transfer and Performing Direct Patient Care at Bedside Discharge Plan Dx/Rx/DC Orders Clinical Impression: Non-ST elevation (NSTEMI) myocardial infarction Disposition Disposition: Acute Care [facility]
[2020-08-21] MEDS: Morphine 4 MG/ML Syringe IV (00:59)
[2020-08-21] MEDS: Ondansetron 4 MG/2 ML Vial IV (00:59)
[2020-08-21 01:01] LABS: Absolute Neutrophil Count 5.8 X10^3/uL (2.0-7.7); Basophil# 0.04 X10^3/uL; Basophil% 0.4 % (0-1); Eosinophil# 0.12 X10^3/uL; Eosinophils% 1.3 % (0-5); Hematocrit 40.9 % (37-47); Hemoglobin 13.4 g/dL (12.0-15.0); Lymphocyte % 25.8 % (19-41); Mean Corp Hgb Conc 32.8 g/dL (32-36); Mean Corpuscular Hgb 29.3 pg (27.0-32.0); Mean Corpuscular Volume 89.3 fL (81-99); Mean Platelet Vol. 11.1 fl (6.2-12.0); Monocyte# 0.89 X10^3/uL; Monocyte% 9.6 % (0-10); NRBC Flagged by Analyzer 0 % (0-5); Neutrophil % 62.4 % (47-70); Platelet Count 153 K/mm3 (150-450); RBC Distribution Width CV 14.7 % (11.6-14.6); RBC Distribution Width SD 47.7 fl (35.1-43.9); Red Blood Count 4.58 M/mm3 (4.2-5.4); White Blood Count 9.3 K/mm3 (4.4-11.0)
[2020-08-21 01:16] LABS: Partial Thromboplast Time 35.9 Seconds (24.1-36.2)
[2020-08-21 01:28] LABS: Anion Gap 9 (5-15); BUN 39 mg/dL (7-18); BUN/Creat Ratio 18.1 RATIO (10-20); Calcium,Total 9.4 mg/dL (8.5-10.1); Chloride 102 mmol/L (98-107); Creatinine, Serum 2.15 mg/dL (0.55-1.02); EST Glomerular Filtration Rate 24 mL/min (>60); Est Glom Filt Rate - Afr Amer 29 mL/min (>60); Estimated Creatinine Clearance 19.57 ml/min; Glucose 153 mg/dL (74-106); Potassium 4.2 mmol/L (3.5-5.1); Sodium Level 134 mmol/L (136-145); Troponin-I HS 384.7 pg/mL (3.0-53.7)
--- NOTE | 2020-08-21 01:43 | HP.PCM.HOS_ITS ---
HPI - General General Date of Service: 08/21/20 Chief Complaint: Chest pain HPI Narrative The patient is a 70 y/o F w/ PMHx: Chronic back pain with lumbar stenosis, HTN, HLD, Diabetes mellitus type II, Obesity, Depression and Anxiety, Liver cirrhosis (unclear mediation) who presents to the [facility] ED on 08/21/20 with history of onset chest discomfort starting approximately at 10 to 10:30 PM the evening prior prior to arrival noted to be left side, aching and severe both rated initially 10 out of 10 in severity with radiation toward her back and also to the lateral left side of her chest prompting eventual ED presentation for evaluation. She notes currently chest discomfort has improved to 6 out of 10. She does note some mild nausea and dyspnea with this episode. Work-up in the ED included T 96.6 temporally, heart rate 104, BP 133/64, respiratory rate 16, 98% on room air, WBC 9.3, hemoglobin 13.4, platelet 153 without marked shift, PTT 35.9, BMP with sodium 134, BUN/creatinine 39/2.15, glucose 153, troponin 384.7, chest x- ray with no acute cardiopulmonary findings, EKG with sinus rhythm with no acute evidence of ischemia. In the ED patient administered nitroglycerin infusion, morphine, heparin bolus with drip as well as aspirin 324 mg p.o. x1. [facility] Medical History (Updated 08/21/20 @ 02:[address] Brooklynn Pritchard MD) Diabetes Home Medications Metformin HCl 1,000 mg PO BID 02/06/16 [History Last Taken 11/04/18] gabapentin 800 mg PO TIDCM 02/06/16 [History Last Taken 11/04/18] furosemide 40 mg PO DAILY 09/07/17 [History Last Taken 11/04/18] lisinopril 2.5 mg PO DAILY 09/07/17 [History Last Taken 11/04/18] spironolactone [Aldactone] 100 mg PO DAILY 09/07/17 [History Last Taken 11/04/18] tramadol 50 mg PO Q6H PRN PRN 11/04/18 [History Last Taken 11/04/18] flash glucose sensor [FreeStyle Allyson 14 Day Sensor] 08/21/20 [History Last Mirza en Unknown] Allergy/AdvReac Type Severity Reaction Status Date / Time adhesive tape AdvReac TEARS SKIN Verified 11/04/18 17:34 Family History (Updated 08/21/20 @ 02:[address] Brooklynn Pritchard MD) Father Alcoholic Cirrhosis of liver other (Patient denies any marked maternal family history including HD, DM, CA.) Surgical History (Updated 08/21/20 @ 02:[address] Brooklynn Pritchard MD) History of back surgery S/P cholecystectomy Social History (Updated 08/21/20 @ 02:[address] Brooklynn Pritchard MD) household members: other details: Patient lives with her family, she has a 9 year old daughter via custody. Smoking Status: Never smoker alcohol intake: never ROS ROS Narrative Admission Review of Systems: CONSTITUTIONAL: No weight loss, fever, chills, + weakness or fatigue. HEENT: Eyes: No visual loss, blurred vision, double vision or yellow sclerae. Ears, Nose, Throat: No hearing loss, sneezing, congestion, runny nose or sore throat. SKIN: No rash or itching, lesions, wounds. CARDIOVASCULAR: + chest pain, chest pressure or chest discomfort, No palpitations, edema, orthopnea, syncopal events. RESPIRATORY: + shortness of breath, No cough or sputum, wheezing, hemoptysis. GASTROINTESTINAL: + anorexia, nausea, No vomiting or diarrhea, abdominal pain, melena, BRBPR. GENITOURINARY: No dysuria, frequency, urgency or retention. NEUROLOGICAL: No headache, dizziness, syncope, paralysis, ataxia, numbness or tingling in the extremities, focal weakness, change in bowel or bladder control, seizure. MUSCULOSKELETAL: + muscle, back pain, joint pain or stiffness. HEMATOLOGIC: No anemia, bleeding or bruising. LYMPHATICS: No enlarged nodes. No history of splenectomy. PSYCHIATRIC: + history of depression or anxiety. ENDOCRINOLOGIC: No reports of sweating, cold or heat intolerance. No polyuria or polydipsia. ALLERGIES: No history of asthma, hives, eczema or rhinitis. Vital Signs Vital Signs Vital Signs: 08/21/20 00:41 08/21/20 00:45 08/21/20 00:52 Temperature 96.6 F L Temperature Source Temporal Pulse Rate 104 H Respiratory Rate 16 Respiratory Effort Short of Breath Pulse Ox 96 98 Oxygen Delivery Method Room Air Room Air Weight Weight: 178 lb 2.136 oz Body Mass Index (BMI) 31.5 Physical Exam Narrative Physical Examination: General: Awake, alert, oriented x 3 and cooperative, seated upright in the ED bed, notes chest pain now 6/10 from 10/10, very soft spoken, fatigued appearing. Skin: Normal color, normal turgor, no icterus, no cyanosis. HEENT: AT/NC, EOMI, PERRLA, mildly dry MM, no carotid bruits or JVD noted. Lungs: CTA bilaterally, moderate effort, mild decrease BL bases, no rales, ronchi or wheezing. Heart: Regular rate and rhythm; no gallop, rub audible. Abdomen: Soft, obese, NTTP, ND, normal BS, no HSM. Extremities: No cyanosis, clubbing, or edema-->DURING evaluation patient did have onset muscle cramp/contraction LLE, improved w/ massage and pedal positioning. Neurological: Patient awake, alert, oriented as noted, cognitive function intact; pupils equally reactive to light and accommodation, cranial nerves II- XII grossly normal, moving all 4 extremities, no focal deficits, strength moderately globally decreased secondary to acute presentation. Psychiatric: Affect appears fatigued, no acute evidence of depressive or anxiety feelings. Results Lab / Micro Data Result Diagrams: 08/21/20 00:34 08/21/20 00:34 Labs: Laboratory Results - last 24 hr 08/21/20 08/21/20 08/21/20 00:34 00:34 00:34 WBC 9.3 RBC 4.58 Hgb 13.4 Hct 40.9 MCV 89.3 MCH 29.3 MCHC 32.8 RDW Std Deviation 47.7 H RDW Coeff of Monster 14.7 H Plt Count 153 MPV 11.1 Immature Gran % (Auto) 0.500 Neut % (Auto) 62.4 Lymph % (Auto) 25.8 [place] % (Auto) 9.6 Eos % (Auto) 1.3 Baso % (Auto) 0.4 Absolute Neuts (auto) 5.8 Absolute Lymphs (auto) 2.40 Nucleated RBC % 0 APTT 35.9 Sodium 134 L Potassium 4.2 Chloride 102 Carbon Dioxide 23.0 Anion Gap 9 BUN 39 H Creatinine 2.15 H Estim Creat Clear Calc 19.57 Est GFR (MDRD) Af Amer 29 L Est GFR (MDRD) Non-Af 24 L BUN/Creatinine Ratio 18.1 Glucose 153 H Calcium 9.4 Troponin I High Sens 384.7 H* Radiology Impression Chest X-Ray 08/21/20 00:51 IMPRESSION: No acute cardiopulmonary disease. Electronically Signed: Marina Farah MD at 1:36 EDT , Service support , Assessment & Plan Assessment/Plan (1) Chest pain: QUALIFIERS: Chest pain type: unspecified Qualified Code(s): R07.9 - Chest pain, unspecified (2) Cardiac enzymes elevated: PLAN: The patient is a 70 y/o F w/ PMHx: Chronic back pain with lumbar stenosis, HTN, HLD, Diabetes mellitus type II, Obesity, Depression and Anxiety, Liver cirrhosis (unclear mediation) who presents to the [facility] ED on 08/21/20 with history of onset chest discomfort starting approximately at 10 to 10:30 PM the evening prior prior to arrival noted to be left side, aching and severe both rated initially 10 out of 10 in severity with radiation toward her back and also to the lateral left side of her chest prompting eventual ED presentation for evaluation. 1. Chest Pain w/ indeterminate cardiac enzyme concern for impending NSTEMI: EKG in ED w/ no acute evidence of ischemia with sinus rhythm, CXR w/ no acute cardiopulmonary findings. Trop elevated, 384.7 with high-sensitivity. Will admit to the ICU given nitroglycerin infusion, continue cardiology consultation, maintain on a monitored bed, continue serial cardiac enzymes and EKGs. Obtain magnesium level upon admission. Continue heparin drip, continue medical management. Echocardiogram requested. Cardiology consulted, plan for cardiac catheterization. Maintain NPO after midnight. ASA, NG, morphine. 2. Acute kidney injury on CKD stage III: Secondary to likely ongoing issues with #1, possibly medication related. Admission BUN/Cr 39/2.15, prior baseline creatinine noted to be 1.1-1.3. Will hydrate, hold nephrotoxic medications and repeat chemistry in AM. If no improvement would plan FeNa as well as renal ultra sound assessment. 3. Diabetes mellitus type II with neuropathy: Hold oral home regimen, currently n.p.o. status but once appropriate ADA diet, accu checks w/ ISS, continue patient home gabapentin regimen. 4. Hypertension: We will temporarily hold patient spironolactone, Lasix and lisinopril given TAIWO and potential need for catheterization, PRN hydralazine. 5. Hyperlipidemia: Not on regimen, FLP in AM. 6. No obesity: Weight loss and lifestyle changes encouraged. 7. Chronic back pain with lumbar stenosis: Frequent position changes encouraged, as needed pain regimen as noted above. 8. Anxiety and depression: Not on any regimen per current list, encourage continued outpatient follow-up. 9. Liver cirrhosis, unclear mediation: Patient with chart reported liver cirrhosis, will continue patient spironolactone, Lasix regimen. Hepatic profile not performed upon presentation. 10. DVT prophylaxis: SCDs, heparin drip. 11. CODE status: Patient HCPOA is not set-up, she does have living will is in place. Discussed CODE status at length including difference between FULL code, DNR-CCA and DNR-CC status. Following discussions about the differences in these status, requested Full Code status. Advanced Care Planning Face to Face Time: 16 minutes. Charges/Coding Visit Charges Inpatient E&M: 51892 Init Hosp L3 Procedures Hospitalists Procedures: 58705 Advncd Care Plan 30 Min
[2020-08-21] MEDS: Metoclopramide 10 MG/2 ML Vial 5 MG IV (01:58)
[2020-08-21] MEDS: DiphenhydrAMINE 50 MG/ML Syringe 25 MG IV (01:58)
[2020-08-21] MEDS: Heparin Injection (Vial) 5,000 UNIT/ML VIAL 5000 UNIT IV (02:00)
[2020-08-21] MEDS: HEPARIN/D5w 25,000 UNITS 25,000 UNITS/250 ML IV.SOLN. 11 UNITS IV (02:01)
--- NOTE | 2020-08-21 02:08 | EKG12_ITS ---
Test Reason : REPEAT CP Blood Pressure : / mmHG Vent. Rate : 068 BPM Atrial Rate : 068 BPM P-R Int : 176 ms QRS Dur : 118 ms QT Int : 474 ms P-R-T Axes : -16 -16 099 degrees QTc Int : 504 ms Sinus rhythm with occasional Premature ventricular complexes Inferior infarct , age undetermined Abnormal ECG Confirmed by TYLER ROBLES, CHARITO ([id number]), news video editor GEOVANNI FRANCO ([id number]) on 08/21/2020 1:02:03 PM Referred By: RUBINA Confirmed By:CHARITO SCOTT MD
[2020-08-21] MEDS: Nitroglycerin Infusion 250 ML 3 MG CONT INF (02:18)
[2020-08-21 02:43] LABS: AST(SGOT) 31 U/L (15-37); Alanine Aminotransfer ALT/SGPT 26 U/L (13-56); Albumin, Serum 4.8 g/dL (3.2-5.0); Alkaline Phosphatase 82 U/L (45-117); Bilirubin, Direct 0.36 mg/dL (0.00-0.30); Globulin 4.3 g/dL (2.2-4.2); Magnesium 1.8 mg/dL (1.6-2.6); Protein, Total 9.1 g/dL (6.4-8.2)
--- NOTE | 2020-08-21 02:51 | EKG12_ITS ---
Test Reason : AM EKG Blood Pressure : / mmHG Vent. Rate : 070 BPM Atrial Rate : 070 BPM P-R Int : 122 ms QRS Dur : 116 ms QT Int : 462 ms P-R-T Axes : 000 -24 109 degrees QTc Int : 498 ms Normal sinus rhythm Leftward Clyman Nonspecific ST/T wave abnormality Inferior infarct , age undetermined Abnormal ECG Confirmed by IRON ROBLES, KAMLESH ([id number]), makeup editor ELVIA HOOK ([id number]) on 08/26/2020 2:11:50 PM Referred By: KELLY Confirmed By:KAMLESH PERDUE MD
--- NOTE | 2020-08-21 02:51 | ECHOCS_ITS ---
Reason For Study: CAD/ASHD Procedure This was a 2D Doppler, Color Flow transthoracic echocardiogram. The study was technically difficult. Contrast injection was performed. Exam performed portable in ICU/CCU. Left Ventricle Moderate concentric left ventricular hypertrophy. The 3D full volume ejection fraction is EF 40-45 %. Right Ventricle Normal right ventricle. Normal systolic function. Atria The left atrium is mildly enlarged. Normal right atrium. Mitral Valve There is mild to moderate mitral annular calcification. Moderately severe (3+) mitral valve insufficiency. Tricuspid Valve Normal tricuspid valve. Mild tricuspid valve insufficiency. Aortic Valve Moderate restriction of the aortic valve. Mild (1+) aortic valve insufficiency. Pulmonic Valve The pulmonic valve is not well visualized. Great Vessels Normal aortic root. Pericardium/Pleural No pericardial effusion. Medication Diluted definity 4ml given slow IV push to enhance endocardial definition. MMode/2D Measurements & Calculations LVIDd: 5.3 cm IVSd: 1.5 cm Ao root diam: 3.3 cm LVIDs: 4.1 cm LVPWd: 1.0 cm LA dimension: 4.4 cm FS: 22.6 % LAV(MOD-bp): 70.0 ml LA A4 area: 22.0 cm2 RA A4 area: 12.7 cm2 LAV(MOD-bp) Indexed: 38.0 ml/m2 LAV(MOD-sp2): 69.4 ml LAV(MOD-sp4): 62.1 ml Time Measurements MV dec time: 0.26 sec Doppler Measurements & Calculations MV E max taqueria: 92.8 cm/sec Lat Peak E' Taqueria: 7.7 cm/sec Med Peak E' Taqueria: 3.5 cm/sec MV A max taqueria: 77.3 cm/sec E/E' lat: 12.0 E/E' med: 26.6 MV E/A: 1.2 MV V2 max: 95.1 cm/sec MV P1/2t max taqueria: 95.1 cm/sec Ao V2 max: 156.2 cm/sec MV max P.6 mmHg MV P1/2t: 130.7 msec Ao max P.8 mmHg MV V2 mean: 61.6 cm/sec MV dec slope: 213.1 cm/sec2 MV mean P.6 mmHg MV V2 VTI: 37.9 cm MVA(P1/2t): 1.7 cm2 LV V1 max: 97.7 cm/sec PA V2 max: 81.9 cm/sec LV V1 max P.8 mmHg ECHO/Echo Complete W/ Contrast Interpretation Summary Ejection fraction is EF 40-45 %. Moderate LV systolic Dysfunction Inferior-septal Hypokinesia Need evluation for AV RAISSA/LHC/RHC Mild LAE/Moderate MR Mild AR Mild TR Ordering Physician: Brooklynn Pritchard Referring Physician: Lei Bullock Performed By: Deonte Milner RCS
[2020-08-21 03:30] LABS: Absolute Lymphocyte Count 1.53 X10^3/uL (0.83-4.51); Absolute Neutrophil Count 5.8 X10^3/uL (2.0-7.7); Basophil# 0.05 X10^3/uL; Basophil% 0.6 % (0-1); Eosinophils% 1.2 % (0-5); Hematocrit 34.3 % (37-47); Hemoglobin 11.4 g/dL (12.0-15.0); Lymphocyte # 1.53 X10^3/ul (0.83-4.51); Lymphocyte % 18.9 % (19-41); Mean Corp Hgb Conc 33.2 g/dL (32-36); Mean Corpuscular Hgb 29.7 pg (27.0-32.0); Mean Corpuscular Volume 89.3 fL (81-99); Mean Platelet Vol. 10.8 fl (6.2-12.0); Monocyte# 0.58 X10^3/uL; Monocyte% 7.2 % (0-10); NRBC Flagged by Analyzer 0 % (0-5); Neutrophil # 5.81 X10^3/uL (2.7-7.7); Neutrophil % 71.6 % (47-70); Platelet Count 120 K/mm3 (150-450); RBC Distribution Width CV 14.5 % (11.6-14.6); RBC Distribution Width SD 47.2 fl (35.1-43.9); Red Blood Count 3.84 M/mm3 (4.2-5.4); White Blood Count 8.1 K/mm3 (4.4-11.0)
[2020-08-21] MEDS: 0.9% Normal Saline 1,000 ML 100 ML IV ×2 (04:00→14:06)
[2020-08-21 04:29] LABS: ALB/GLOB Ratio 1.1 RATIO (0.9-2.4); AST(SGOT) 29 U/L (15-37); Alanine Aminotransfer ALT/SGPT 24 U/L (13-56); Alkaline Phosphatase 72 U/L (45-117); Anion Gap 12 (5-15); BUN 38 mg/dL (7-18); BUN/Creat Ratio 20.2 RATIO (10-20); Calcium,Total 8.5 mg/dL (8.5-10.1); Chloride 103 mmol/L (98-107); Cholesterol 131 mg/dL (200); Creatinine, Serum 1.88 mg/dL (0.55-1.02); EST Glomerular Filtration Rate 28 mL/min (>60); Est Glom Filt Rate - Afr Amer 34 mL/min (>60); Estimated Creatinine Clearance 20.41 ml/min; Globulin 3.7 g/dL (2.2-4.2); Glucose 127 mg/dL (74-106); High Density Lipoprotein 30 mg/dL; Potassium 4.5 mmol/L (3.5-5.1); Protein, Total 7.7 g/dL (6.4-8.2); Sodium Level 135 mmol/L (136-145); Triglycerides 126 mg/dL; Very Low Density Lipoprotein 25 mg/dL (5-40)
[2020-08-21 06:55] LABS: Partial Thromboplast Time 196.5 Seconds (24.1-36.2)
[2020-08-21 07:23] LABS: Troponin-I HS 318.5 pg/mL (3.0-53.7)
[2020-08-21 09:34] LABS: Troponin-I HS 308.7 pg/mL (3.0-53.7)
--- NOTE | 2020-08-21 10:25 | CASEMGMT ---
PARVIZ DICKERSON Face to Face with patient for initial transition planning/care coordination assessment. RN CM introduced self and role at [facility]. Patient lying in bed, alert and oriented. Patient willing to participate in assessment and is able to answer all questions appropriately. Care providers, pharmacy, and demographics verified. Patient wishes to discharge home, denies need for home health at this time. Patient states she has no further needs or concerns at this time. CM to follow for discharge planning needs that may arise. PCP: Ara Specialists: neto Pedro Pharmacy: [facility] Insurance: [facility] Prescription Benefit: yes Living Will/HPOA: yes, son Flex Fowler LNOK: son Living Arrangements: Patient lives with 9 yo great niece that family is taking care of. Patient live in a duplex with bed and bath on first floor. Patient states she is independent at home. Transportation: self/son DME/HHC: Patient states she has shower chair, raised toilet, cane, walker, grab bars, and glucometer with testing supplies at home. Patient denies previous HHC or SNF. Disposition Plan: Patient to discharge home with family support and follow-up plans in place. Day CASILLAS, RN, CM
[2020-08-21 11:26] LABS: Bedside Glucose 116 mg/dL (70-110)
--- NOTE | 2020-08-21 12:00 | CASEMGMT ---
Social Work Note LORRI updated that pt's recently four months ago. SW in to speak with pt. SW introduced self and role at [facility]. Pt is alert and orientated. Pt confirms that her , Jacob, four months ago due to COVID. Pt states Jacob was at [facility] and then was transferred to [facility] on a Monday and then on Monday. SW offered support to pt. Pt states it has been a change not having her around and she is taking things one day at a time. Pt states during the day she is able to keep busy but at night is when she really misses him. Pt states her and her would watch TV at night together before and now she just watches TV by herself. Pt states if it is nice outside she will sit outside with her neighbor at night. Pt states she has been and is currently going to Grief counseling at [address] week. Pt states the last time she went was about two weeks ago. Pt states she is going in person to her grief counseling appointments. PT states she thinks they are really helping her and [place] is available at anytime if she needs something. Pt states that [facility] also calls every two months to check in with pt. Pt states that her family and friends have been supportive and are available to assist if needed. Pt denied any history of Mental Health. Pt denied any history of suicidal thoughts/plans/ideations. Pt denied any current suicidal thoughts/plans/ideations. Pt states when her she wanted to go with him but had no plans/thoughts/ideations about harming self. Pt states her two sons and great niece (who she has custody of) are her motivation to keep going. SW asked pt about her great niece, who pt states she has custody of. Pt states her Great Niece is named Bryson and she is 9 year olds. Pt states she has primary custody of Bryson and she has had custody since Lexi was 3 months old. Pt states Bryson is her sister's son's child. Pt states the parents of Bryson were abusing substances and that is why Bryson had to be removed from the home. Pt states at this time, [facility] is [facility] and then she will be going to [place] with the neighbors. Pt states last night when she had to come to [facility], her son stayed with Bryson last night. Pt state that her family is able to assist with Bryson if she needs additional help. SW offered much support to pt during conversation. Pt states that she has good relationships with her family and has supportive family and friends. Pt is currently receiving grief counseling services. Pt denied any history of suicidal thoughts/plans/ideations, pt denied any current suicidal thoughts/plans/ideations. Pt is able to identify her children and Great Niece as motivation to keep going. Pt denied additional needs or concerns at this time. Day Jimenez COMMERCIAL DRIVER'S LICENSE DRIVER, SPRUE CUTTING PRESS OPERATOR
--- NOTE | 2020-08-21 12:28 | PN.HOSP_ITS ---
Subjective Subjective Still with left sided chest pain. Objective Data Objective Data Vital Signs: Vital Signs Temp Pulse Resp BP Pulse Ox 36.9 C 64 15 111/59 L 97 08/21/20 08:00 08/21/20 10:00 08/21/20 10:00 08/21/20 10:00 08/21/20 10:00 Oxygen Delivery Method Room Air Weight: 80.785 kg Body Mass Index (BMI) 33.6 Intake & Output: Intake and Output for Last 24 Hours 08/19/20 08/20/20 08/21/20 23:59 23:59 23:59 Intake Total 1704.73 / 1704.73 Output Total 300 / 300 Balance 1404.73 / 1404.73 Lab / Micro Data Result Diagrams: 08/21/20 03:25 08/21/20 03:25 Labs: Laboratory Results - last 24 hr 08/21/20 08/21/20 08/21/20 00:34 00:34 00:34 WBC 9.3 RBC 4.58 Hgb 13.4 Hct 40.9 MCV 89.3 MCH 29.3 MCHC 32.8 RDW Std Deviation 47.7 H RDW Coeff of Monster 14.7 H Plt Count 153 MPV 11.1 Immature Gran % (Auto) 0.500 Neut % (Auto) 62.4 Lymph % (Auto) 25.8 Cochran % (Auto) 9.6 Eos % (Auto) 1.3 Baso % (Auto) 0.4 Absolute Neuts (auto) 5.8 Absolute Lymphs (auto) 2.40 Nucleated RBC % 0 APTT 35.9 Sodium 134 L Potassium 4.2 Chloride 102 Carbon Dioxide 23.0 Anion Gap 9 BUN 39 H Creatinine 2.15 H Estim Creat Clear Calc 19.57 Est GFR (MDRD) Af Amer 29 L Est GFR (MDRD) Non-Af 24 L BUN/Creatinine Ratio 18.1 Glucose 153 H Calcium 9.4 Magnesium Total Bilirubin Direct Bilirubin AST ALT Alkaline Phosphatase Troponin I High Sens 384.7 H* Total Protein Albumin Globulin Albumin/Globulin Ratio Triglycerides Cholesterol LDL Cholesterol VLDL Cholesterol HDL Cholesterol POC Glucose 08/21/20 08/21/20 08/21/20 00:35 03:25 03:25 WBC 8.1 RBC 3.84 L Hgb 11.4 L Hct 34.3 L MCV 89.3 MCH 29.7 MCHC 33.2 RDW Std Deviation 47.2 H RDW Coeff of Monster 14.5 Plt Count 120 L MPV 10.8 Immature Gran % (Auto) 0.500 Neut % (Auto) 71.6 H Lymph % (Auto) 18.9 L Cochran % (Auto) 7.2 Eos % (Auto) 1.2 Baso % (Auto) 0.6 Absolute Neuts (auto) 5.8 Absolute Lymphs (auto) 1.53 Nucleated RBC % 0 APTT Sodium 135 L Potassium 4.5 Chloride 103 Carbon Dioxide 20.0 L Anion Gap 12 BUN 38 H Creatinine 1.88 H Estim Creat Clear Calc 20.41 Est GFR (MDRD) Af Amer 34 L Est GFR (MDRD) Non-Af 28 L BUN/Creatinine Ratio 20.2 H Glucose 127 H Calcium 8.5 Magnesium 1.8 Total Bilirubin 1.10 H 0.90 Direct Bilirubin 0.36 H AST 31 29 ALT 26 24 Alkaline Phosphatase 82 72 Troponin I High Sens 353.0 H* Total Protein 9.1 H 7.7 Albumin 4.8 4.0 Globulin 4.3 H 3.7 Albumin/Globulin Ratio 1.1 Triglycerides 126 Cholesterol 131 LDL Cholesterol 76 VLDL Cholesterol 25 HDL Cholesterol 30 L POC Glucose 08/21/20 08/21/20 08/21/20 05:30 06:35 08:50 WBC RBC Hgb Hct MCV MCH MCHC RDW Std Deviation RDW Coeff of Monster Plt Count MPV Immature Gran % (Auto) Neut % (Auto) Lymph % (Auto) Cochran % (Auto) Eos % (Auto) Baso % (Auto) Absolute Neuts (auto) Absolute Lymphs (auto) Nucleated RBC % APTT 196.5 H* Sodium Potassium Chloride Carbon Dioxide Anion Gap BUN Creatinine Estim Creat Clear Calc Est GFR (MDRD) Af Amer Est GFR (MDRD) Non-Af BUN/Creatinine Ratio Glucose Calcium Magnesium Total Bilirubin Direct Bilirubin AST ALT Alkaline Phosphatase Troponin I High Sens 318.5 H* 308.7 H* Total Protein Albumin Globulin Albumin/Globulin Ratio Triglycerides Cholesterol LDL Cholesterol VLDL Cholesterol HDL Cholesterol POC Glucose 08/21/20 11:18 WBC RBC Hgb Hct MCV MCH MCHC RDW Std Deviation RDW Coeff of Monster Plt Count MPV Immature Gran % (Auto) Neut % (Auto) Lymph % (Auto) Cochran % (Auto) Eos % (Auto) Baso % (Auto) Absolute Neuts (auto) Absolute Lymphs (auto) Nucleated RBC % APTT Sodium Potassium Chloride Carbon Dioxide Anion Gap BUN Creatinine Estim Creat Clear Calc Est GFR (MDRD) Af Amer Est GFR (MDRD) Non-Af BUN/Creatinine Ratio Glucose Calcium Magnesium Total Bilirubin Direct Bilirubin AST ALT Alkaline Phosphatase Troponin I High Sens Total Protein Albumin Globulin Albumin/Globulin Ratio Triglycerides Cholesterol LDL Cholesterol VLDL Cholesterol HDL Cholesterol POC Glucose 116 H Radiography Diagnostic Testing: Radiology Impression Chest X-Ray 08/21/20 00:51 IMPRESSION: No acute cardiopulmonary disease. Electronically Signed: Marina Farah MD at 1:36 EDT , Service support , Physical Exam Const alert HEENT Head and Scalp: normocephalic Resp normal respiratory effort, no retractions, no use of accessory muscles and clear to auscultation bilaterally Cardio regular rate, regular rhythm, S1 normal heart sound and S2 normal heart sound GI normal to inspection, nondistended, normoactive bowel sounds, non-tender and non-distended Extremity normal to inspection Skin Skin Narrative: no left sided rash Assessment & Plan Assessment/Plan (1) Chest pain: QUALIFIERS: Chest pain type: unspecified Qualified Code(s): R07.9 - Chest pain, unspecified (2) Cardiac enzymes elevated: PLAN: The patient is a 70 y/o F w/ PMHx: Chronic back pain with lumbar stenosis, HTN, HLD, Diabetes mellitus type II, Obesity, Depression and Anxiety, Liver cirrhosis (unclear mediation) who presents to the [facility] ED on 08/21/20 with history of onset chest discomfort starting approximately at 10 to 10:30 PM the evening prior prior to arrival noted to be left side, aching and severe both rated initially 10 out of 10 in severity with radiation toward her back and also to the lateral left side of her chest prompting eventual ED presentation for evaluation. 1. Chest Pain w/ indeterminate cardiac enzyme concern for impending NSTEMI: * EKG in ED w/ no acute evidence of ischemia with sinus rhythm, CXR w/ no acute cardiopulmonary findings. * On nitro and heparin gtt * Echocardiogram requested. * Cardiology consulted 2. Acute kidney injury on CKD stage III: * Secondary to likely ongoing issues with #1, possibly medication related. Admi ssion BUN/Cr 39/2.15, prior baseline creatinine noted to be 1.1-1.3. 3. Diabetes mellitus type II with neuropathy: * Hold oral home regimen, currently n.p.o. status but once appropriate ADA diet, accu checks w/ ISS, continue patient home gabapentin regimen. 4. Hypertension: * We will temporarily hold patient spironolactone, Lasix and lisinopril given TAIWO and potential need for catheterization, PRN hydralazine. 5. Hyperlipidemia: Not on regimen, FLP in AM. 6. No obesity: Weight loss and lifestyle changes encouraged. 7. Chronic back pain with lumbar stenosis: Frequent position changes encouraged, as needed pain regimen as noted above. 8. Anxiety and depression: Not on any regimen per current list, encourage continued outpatient follow-up. 9. Liver cirrhosis, unclear mediation: Patient with chart reported liver cirrhosis, will continue patient spironolactone, Lasix regimen. Hepatic profile not performed upon presentation. 10. DVT prophylaxis: SCDs, heparin drip. 11. CODE status: Patient NOHEMI is not set-up, she does have living will is in place. Discussed CODE status at length including difference between FULL code, DNR-CCA and DNR-CC status. Following discussions about the differences in these status, requested Full Code status. Advanced Care Planning Face to Face Time: 16 minutes. Charges/Coding Visit Charges Inpatient E&M: 30948 Subs Hosp L2
[2020-08-21] MEDS: Famotidine 20 MG Tablet PO (12:42)
[2020-08-21] MEDS: Gabapentin 400 MG Capsule 800 MG PO ×2 (12:43→17:51)
[2020-08-21 16:30] LABS: Bedside Glucose 87 mg/dL (70-110)
[2020-08-21 18:52] LABS: Troponin-I HS 307.7 pg/mL (3.0-53.7)
--- NOTE | 2020-08-21 20:55 | CON.PCM.CA_ITS ---
Assessment & Plan Assessment/Plan (1) Non-ST elevation (NSTEMI) myocardial infarction: PLAN: 70-year-old patient admitted with left upper chest pain, atypical with radiation to lower extremity, left side Cardiac consultation requested because of elevated high sensitive troponin. This patient has no prior cardiac history Patient had also change in the EKG with age indeterminant inferior NM with PVC Echocardiographic evaluation showed LV function reduced EF around 40-45% with inferior hypokinesia and mild aortic incompetence She has multiple other medical comorbidities with history of liver cirrhosis according to the record type 2 diabetes, hypertension, hyperlipidemia Also she has been under stress taking care of her 9-year-old son at home and her recently with Covid. Plan; 1. Noted her creatinine level is elevated 2.18 will need start on IV hydration cautiously because of mildly reduced LV function 2. Nephrology consultation 3. Patient current medication reviewed she is on aspirin low-dose, heparin, high-dose atorvastatin. 4. I discussed the need of further evaluation if she is cleared by the supervisor livestock yard and her renal function improve so we will check her creatinine and will follow up in the morning with possible plan of cardiac catheterization in the morning. Due to the multiple comorbidities and elevated creatinine risk of contrast- induced nephropathy and the risk of acute renal failure requiring dialysis. (2) Cirrhosis of liver: (3) LVH (left ventricular hypertrophy): (4) UTI (urinary tract infection): HPI Consult Data Date of Consult: 08/21/20 HPI Narrative Reason for Consultation: Cardiac consultation,elevated troponin/NSTEMI HPI Narrative: DAVE BECKWITH, is a 70 F who presents [facility] Medical History (Updated 08/21/20 @ 21:[address] Grace Atkinson MD) Diabetes Hypertension Home Medications Metformin HCl 1,000 mg PO BID 02/06/16 [History Last Taken 11/04/18] gabapentin 800 mg PO TIDCM 02/06/16 [History Last Taken 11/04/18] furosemide 40 mg PO DAILY 09/07/17 [History Last Taken 11/04/18] lisinopril 2.5 mg PO DAILY 09/07/17 [History Last Taken 11/04/18] spironolactone [Aldactone] 100 mg PO DAILY 09/07/17 [History Last Taken 11/04/18] tramadol 50 mg PO Q6H PRN PRN 11/04/18 [History Last Taken 11/04/18] flash glucose sensor [FreeStyle Allyson 14 Day Sensor] 08/21/20 [History Last Mirza en Unknown] Allergy/AdvReac Type Severity Reaction Status Date / Time adhesive tape AdvReac TEARS SKIN Verified 11/04/18 17:34 Family History (Updated 08/21/20 @ 02:[address] Brooklynn Pritchard MD) Father Alcoholic Cirrhosis of liver Surgical History (Updated 08/21/20 @ 02:[address] Brooklynn Pritchard MD) History of back surgery S/P cholecystectomy Social History (Updated 08/21/20 @ 02:[address] Brooklynn Pritchard MD) household members: other details: Patient lives with her family, she has a 9 year old daughter via custody. Smoking Status: Never smoker alcohol intake: never Physical Exam Narrative Patient seen and evaluated at bedside along with the nursing staff She is alert and orientated x3. No active chest pain sitting out edge of the bed. Cardiovascular examination; cardiac rhythm normal sinus, S1-S2 regular Ejection systolic murmur heard in the aortic valve area, no diastolic murmur Chest examination clear to auscultation bilateral Examination abdomen soft Examination lower extremity no clubbing no cyanosis no lower extremity edema Examination of central nervous system, no focal neurological deficit. Objective Data Vital Signs: Vital Signs Temp Pulse Resp BP Pulse Ox 97.9 F 64 16 128/61 H 96 08/21/20 15:00 08/21/20 17:00 08/21/20 17:00 08/21/20 17:00 08/21/20 17:00 Oxygen Delivery Method Room Air Weight: 178 lb 1.6 oz Body Mass Index (BMI) 33.6 Intake & Output: Intake and Output for Last 24 Hours 08/19/20 08/20/20 08/21/20 23:59 23:59 23:59 Intake Total 2484.14 / 2484.14 Output Total 900 / 900 Balance 1584.14 / 1584.14 Lab / Micro Data Result Diagrams: 08/21/20 03:25 08/21/20 03:25 Labs: Laboratory Results - last 24 hr 08/21/20 08/21/20 08/21/20 00:34 00:34 00:34 WBC 9.3 RBC 4.58 Hgb 13.4 Hct 40.9 MCV 89.3 MCH 29.3 MCHC 32.8 RDW Std Deviation 47.7 H RDW Coeff of Monster 14.7 H Plt Count 153 MPV 11.1 Immature Gran % (Auto) 0.500 Neut % (Auto) 62.4 Lymph % (Auto) 25.8 Zapata % (Auto) 9.6 Eos % (Auto) 1.3 Baso % (Auto) 0.4 Absolute Neuts (auto) 5.8 Absolute Lymphs (auto) 2.40 Nucleated RBC % 0 APTT 35.9 Sodium 134 L Potassium 4.2 Chloride 102 Carbon Dioxide 23.0 Anion Gap 9 BUN 39 H Creatinine 2.15 H Estim Creat Clear Calc 19.57 Est GFR (MDRD) Af Amer 29 L Est GFR (MDRD) Non-Af 24 L BUN/Creatinine Ratio 18.1 Glucose 153 H Calcium 9.4 Magnesium Total Bilirubin Direct Bilirubin AST ALT Alkaline Phosphatase Troponin I High Sens 384.7 H* Total Protein Albumin Globulin Albumin/Globulin Ratio Triglycerides Cholesterol LDL Cholesterol VLDL Cholesterol HDL Cholesterol POC Glucose 08/21/20 08/21/20 08/21/20 00:35 03:25 03:25 WBC 8.1 RBC 3.84 L Hgb 11.4 L Hct 34.3 L MCV 89.3 MCH 29.7 MCHC 33.2 RDW Std Deviation 47.2 H RDW Coeff of Monster 14.5 Plt Count 120 L MPV 10.8 Immature Gran % (Auto) 0.500 Neut % (Auto) 71.6 H Lymph % (Auto) 18.9 L Zapata % (Auto) 7.2 Eos % (Auto) 1.2 Baso % (Auto) 0.6 Absolute Neuts (auto) 5.8 Absolute Lymphs (auto) 1.53 Nucleated RBC % 0 APTT Sodium 135 L Potassium 4.5 Chloride 103 Carbon Dioxide 20.0 L Anion Gap 12 BUN 38 H Creatinine 1.88 H Estim Creat Clear Calc 20.41 Est GFR (MDRD) Af Amer 34 L Est GFR (MDRD) Non-Af 28 L BUN/Creatinine Ratio 20.2 H Glucose 127 H Calcium 8.5 Magnesium 1.8 Total Bilirubin 1.10 H 0.90 Direct Bilirubin 0.36 H AST 31 29 ALT 26 24 Alkaline Phosphatase 82 72 Troponin I High Sens 353.0 H* Total Protein 9.1 H 7.7 Albumin 4.8 4.0 Globulin 4.3 H 3.7 Albumin/Globulin Ratio 1.1 Triglycerides 126 Cholesterol 131 LDL Cholesterol 76 VLDL Cholesterol 25 HDL Cholesterol 30 L POC Glucose 08/21/20 08/21/20 08/21/20 05:30 06:35 08:50 WBC RBC Hgb Hct MCV MCH MCHC RDW Std Deviation RDW Coeff of Monster Plt Count MPV Immature Gran % (Auto) Neut % (Auto) Lymph % (Auto) Zapata % (Auto) Eos % (Auto) Baso % (Auto) Absolute Neuts (auto) Absolute Lymphs (auto) Nucleated RBC % APTT 196.5 H* Sodium Potassium Chloride Carbon Dioxide Anion Gap BUN Creatinine Estim Creat Clear Calc Est GFR (MDRD) Af Amer Est GFR (MDRD) Non-Af BUN/Creatinine Ratio Glucose Calcium Magnesium Total Bilirubin Direct Bilirubin AST ALT Alkaline Phosphatase Troponin I High Sens 318.5 H* 308.7 H* Total Protein Albumin Globulin Albumin/Globulin Ratio Triglycerides Cholesterol LDL Cholesterol VLDL Cholesterol HDL Cholesterol POC Glucose 08/21/20 08/21/20 08/21/20 11:18 15:10 16:22 WBC RBC Hgb Hct MCV MCH MCHC RDW Std Deviation RDW Coeff of Monster Plt Count MPV Immature Gran % (Auto) Neut % (Auto) Lymph % (Auto) Zapata % (Auto) Eos % (Auto) Baso % (Auto) Absolute Neuts (auto) Absolute Lymphs (auto) Nucleated RBC % APTT 72.0 H Sodium Potassium Chloride Carbon Dioxide Anion Gap BUN Creatinine Estim Creat Clear Calc Est GFR (MDRD) Af Amer Est GFR (MDRD) Non-Af BUN/Creatinine Ratio Glucose Calcium Magnesium Total Bilirubin Direct Bilirubin AST ALT Alkaline Phosphatase Troponin I High Sens Total Protein Albumin Globulin Albumin/Globulin Ratio Triglycerides Cholesterol LDL Cholesterol VLDL Cholesterol HDL Cholesterol POC Glucose 116 H 87 08/21/20 18:20 WBC RBC Hgb Hct MCV MCH MCHC RDW Std Deviation RDW Coeff of Monster Plt Count MPV Immature Gran % (Auto) Neut % (Auto) Lymph % (Auto) Zapata % (Auto) Eos % (Auto) Baso % (Auto) Absolute Neuts (auto) Absolute Lymphs (auto) Nucleated RBC % APTT Sodium Potassium Chloride Carbon Dioxide Anion Gap BUN Creatinine Estim Creat Clear Calc Est GFR (MDRD) Af Amer Est GFR (MDRD) Non-Af BUN/Creatinine Ratio Glucose Calcium Magnesium Total Bilirubin Direct Bilirubin AST ALT Alkaline Phosphatase Troponin I High Sens 307.7 H* Total Protein Albumin Globulin Albumin/Globulin Ratio Triglycerides Cholesterol LDL Cholesterol VLDL Cholesterol HDL Cholesterol POC Glucose Cardiology Labs/Tests 08/21/20 00:34: WBC 9.3, RBC 4.58, Hgb 13.4, Hct 40.9, MCV 89.3, MCH 29.3, MCHC 32.8, Plt Count 153, MPV 11.1, Immature Gran % (Auto) 0.500, Neut % (Auto) 62.4, Lymph % (Auto) 25.8, Zapata % (Auto) 9.6, Eos % (Auto) 1.3, Baso % (Auto) 0.4, Absolute Neuts (auto) 5.8, Nucleated RBC % 0 08/21/20 00:34: APTT 35.9 08/21/20 00:34: Sodium 134 L, Potassium 4.2, Chloride 102, Carbon Dioxide 23.0, Anion Gap 9, BUN 39 H, Creatinine 2.15 H, Est GFR (MDRD) Af Amer 29 L, Est GFR (MDRD) Non-Af 24 L, BUN/Creatinine Ratio 18.1, Glucose 153 H, Calcium 9.4 08/21/20 00:35: Magnesium 1.8, Total Bilirubin 1.10 H, Direct Bilirubin 0.36 H 08/21/20 03:25: WBC 8.1, RBC 3.84 L, Hgb 11.4 L, Hct 34.3 L, MCV 89.3, MCH 29.7, MCHC 33.2, Plt Count 120 L, MPV 10.8, Immature Gran % (Auto) 0.500, Neut % (Auto) 71.6 H, Lymph % (Auto) 18.9 L, Zapata % (Auto) 7.2, Eos % (Auto) 1.2, Baso % (Auto) 0.6, Absolute Neuts (auto) 5.8, Nucleated RBC % 0 08/21/20 03:25: Sodium 135 L, Potassium 4.5, Chloride 103, Carbon Dioxide 20.0 L , Anion Gap 12, BUN 38 H, Creatinine 1.88 H, Est GFR (MDRD) Af Amer 34 L, Est GFR (MDRD) Non-Af 28 L, BUN/Creatinine Ratio 20.2 H, Glucose 127 H, Calcium 8.5, Total Bilirubin 0.90, Triglycerides 126, Cholesterol 131, LDL Cholesterol 76, VLDL Cholesterol 25, HDL Cholesterol 30 L 08/21/20 06:35: APTT 196.5 H* 08/21/20 15:10: APTT 72.0 H Rhythm: Normal sinus rhythm EKG: Normal sinus rhythm with PVC, age undetermined inferior NM ECHO: Ejection 40-45%, inferior hypokinesia, mild aortic incompetence Radiography Diagnostic Testing: Radiology Impression Chest X-Ray 08/21/20 00:51 IMPRESSION: No acute cardiopulmonary disease. Electronically Signed: Marina Farah MD at 1:36 EDT , Service support , Echocardiogram 08/21/20 02:51 Interpretation Summary Ejection fraction is EF 40-45 %. Moderate LV systolic Dysfunction Inferior-septal Hypokinesia Need evluation for AV RAISSA/LHC/RHC Mild LAE/Moderate MR Mild AR Mild TR Ordering Physician: Brooklynn Pritchard Referring Physician: Lei Bullock Performed By: Deonte Milner RCS
--- NOTE | 2020-08-21 21:23 | NURSING ---
08/21/20202029 Dr. Atkinson at bedside.
[2020-08-21] MEDS: 0.9% Saline Lock 10 ML Syringe IV (21:26)
[2020-08-21] MEDS: Atorvastatin Calcium 80 MG Tablet PO (21:28)
[2020-08-21] MEDS: Aspirin 81 MG TAB.CHEW PO (21:28)
[2020-08-21 21:36] LABS: Partial Thromboplast Time 51.9 Seconds (24.1-36.2)
[2020-08-21 21:41] LABS: Bedside Glucose 110 mg/dL (70-110)
[2020-08-21] MEDS: Heparin Injection (Vial) 5,000 UNIT/ML VIAL IV (22:15)
[2020-08-21] MEDS: HEPARIN/D5w 25,000 UNITS 25,000 UNITS/250 ML IV.SOLN. 9 UNITS IV (22:22)
[2020-08-22] VITALS (22 sets, daily range): BP systolic 103–138; BP diastolic 53–82; PULSE 64–85; RESP 12–22; TEMP 36.6–36.8; O2SAT 94–99
[2020-08-22] MEDS: 0.9% Normal Saline 1,000 ML 50 ML IV (01:27)
[2020-08-22 04:30] LABS: Absolute Lymphocyte Count 1.56 X10^3/uL (0.83-4.51); Absolute Neutrophil Count 4.7 X10^3/uL (2.0-7.7); Basophil# 0.03 X10^3/uL; Basophil% 0.4 % (0-1); Eosinophil# 0.18 X10^3/uL; Eosinophils% 2.5 % (0-5); Hemoglobin 10.6 g/dL (12.0-15.0); Lymphocyte # 1.56 X10^3/ul (0.83-4.51); Lymphocyte % 21.6 % (19-41); Mean Corp Hgb Conc 32.1 g/dL (32-36); Mean Corpuscular Hgb 29.4 pg (27.0-32.0); Mean Corpuscular Volume 91.4 fL (81-99); Monocyte# 0.77 X10^3/uL; Monocyte% 10.7 % (0-10); NRBC Flagged by Analyzer 0 % (0-5); Neutrophil # 4.65 X10^3/uL (2.7-7.7); Neutrophil % 64.5 % (47-70); POSITIVE COUNT YES; Platelet Count 95 K/mm3 (150-450); RBC Distribution Width CV 14.5 % (11.6-14.6); RBC Distribution Width SD 48.7 fl (35.1-43.9); Red Blood Count 3.61 M/mm3 (4.2-5.4); White Blood Count 7.2 K/mm3 (4.4-11.0)
[2020-08-22 04:31] LABS: Differential Indicated SCAN CRITERIA MET
[2020-08-22 04:48] LABS: AST(SGOT) 19 U/L (15-37); Alanine Aminotransfer ALT/SGPT 21 U/L (13-56); Albumin, Serum 3.5 g/dL (3.2-5.0); Alkaline Phosphatase 62 U/L (45-117); Anion Gap 6 (5-15); BUN 24 mg/dL (7-18); BUN/Creat Ratio 18.2 RATIO (10-20); Calcium,Total 8.4 mg/dL (8.5-10.1); Chloride 109 mmol/L (98-107); Creatinine, Serum 1.32 mg/dL (0.55-1.02); EST Glomerular Filtration Rate 42 mL/min (>60); Est Glom Filt Rate - Afr Amer 51 mL/min (>60); Estimated Creatinine Clearance 29.07 ml/min; Globulin 3.4 g/dL (2.2-4.2); Glucose 118 mg/dL (74-106); Potassium 4.4 mmol/L (3.5-5.1); Protein, Total 6.9 g/dL (6.4-8.2); Sodium Level 139 mmol/L (136-145)
[2020-08-22] MEDS: CHLORHEXIDINE GLUC 2% CLOTH 1 EACH TOWELETTE TOPICAL (04:51)
[2020-08-22 05:05] LABS: Partial Thromboplast Time 69.2 Seconds (24.1-36.2)
[2020-08-22 06:50] LABS: Troponin-I HS 261.8 pg/mL (3.0-53.7)
[2020-08-22] MEDS: Aspirin 81 MG TAB.CHEW PO (08:00)
--- NOTE | 2020-08-22 10:35 | CASEMGMT ---
According to the [facility] website, the following are in-network tertiary facilities: [facility], [place], [facility], [place], [facility], [place], [facility], and . Ye JJ CM
--- NOTE | 2020-08-22 10:39 | PRO.PCM_ITS ---
Procedure Report Date of Procedure: 08/22/20 Procedure performed; 1. Left heart catheterization 2. Selective cholangiography 3. Measurement of LVEDP #4 left ventriculogram 5. Moderate sedation 6. Placement of Perclose to close the right common femoral artery arteriotomy site 7. TR band to right radial artery area. Consent; Risk and benefit of the procedure explained in detail to the patient she elected to proceed informed consent obtained. Moderate sedation; Patient was given 2 mg of Versed, 50 mcg of fentanyl. Diagnostic catheter used; 1. 5 Greek JL 3.5 2. 5 Greek JR4 3. 5 Greek pigtail catheter Procedure in detail this is a high risk patient with diabetes renal insufficiency hypertension also has been under a lot of stress and had symptoms of chest pain atypical with subsequent elevation of high sensitive troponin and abnormal echocardiogram with EF in the range of 40-45%, with inferior hypokinesia. Based on clinical presentation nephrology consult was requested as her creatinine went up to like 2.3 and she was started over the night on a low-dose normal saline 50 mils per hour This morning her creatinine is 1.3. Patient brought to [employer] [facility] in fasting state initial access from the right radial artery had a lot of spasm in the right radial artery with difficulty of maneuvering the catheter Exchanged for right common femoral artery under fluoroscopic guidance and a 6 Greek sheath placed in the right common femoral artery We proceed with a 5 Greek JL 3.5 advanced ascending aorta cannulated the left main coronary artery without difficulty multiple views of the coronary system were obtained Following this catheter exchanged for 5 Greek JR4 and selective angiographic view of right carotid system including [place], STEVENSON cranial and caudal Q Following this 5 Greek angled pigtail catheter used across the aortic valve placed in the mid ventricle and LVEDP measured an elevated gram was performed Following this all angiography were studied Findings Hemodynamic 1. Reduced LV systolic function with ejection fraction in the range of around 4 0?45 with inferior?basal hypokinesia There is no systolic gradient across aortic valve. There is no mitral regurgitation. 2. Measurement of LVEDP is within normal. Patient given additional 20 mg of IV Lasix in the [employer] Finding of coronary angiography; 1. Left main is long with luminal irregularity no significant atherosclerosis noted in the left main. The left main coronary artery bifurcates into LAD and left circumflex. The left anterior descending artery moderate sized varices diagonal branch had no obstructive atherosclerosis In the mid LAD at the site of the second diagonal branch some haziness noted in the LAD however there is no clear obstruction noted and the second diagonal branch had a proximal 80% stenosis with RADHA-3 flow noted in the LAD With abundant septal branches Noted there is collateral from the septal branches of the LAD to the right posterior descending artery RCA left circumflex artery had nonobstructive sclerosis proximally from 20?t ertiary which is small vessel RCA is dominant and occluded proximally with collaterals/Berri-collateral and L to R.collateral. 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 Conclusion and recommendation; 1. High risk patient, multiple risk factors diabetes renal insufficiency and has been under a lot of stress now presenting with non-ST elevation DE with a finding of cardiac catheterization showed moderate LV systolic dysfunction with occluded RCA well collateralized from the left coronary system,with lesion in the diagonal branch D2 80%, and some haziness in the mid LAD. Recommendation; #1 as part of the heart team approach will send over to review and evaluate/heart team approach lcac operator to evaluate and to discuss with cardiovascular surgeon. Also will monitor her renal function due to history of acute renal insufficiency diabetes and risk of contrast-induced nephropathy and he requested to be evaluated also by the final inspector paper. #2. I discussed today with at [facility] in [facility] and he accepted the transfer of the patient for further cardiac evaluation and discussion with the cardiac team/CV surgeon and further evaluation possible viability study. Patient will be on medical therapy she remained stable clinically with no complication in the [employer]. Grace Atkinson MD,FACC,[facility] security analyst
[2020-08-22 11:30] LABS: Bedside Glucose 143 mg/dL (70-110)
--- NOTE | 2020-08-22 12:34 | PCM.DC.SUM ---
Providers Date of Admission: 08/21/20 Primary Care Physician: Dr. Donovan Bullock MD Consultations 08/21/20 02:51 Consult: Cardiology Routine Consulting Provider: Ashley Cooper Reason for Consult: Chest pain, elevated trop EMERGENT Consult: No MD Notified: Yes Date Notified: 08/21/20 Time Notified: 01:54 Method of Notification: called per ED. Reason For Visit: CHEST PAIN, C/O NSTEMI Diagnosis Discharge Diagnosis (1) Non-ST elevation (NSTEMI) myocardial infarction: Status: Acute Code(s): I21.4 - Non-ST elevation (NSTEMI) myocardial infarction (2) Cirrhosis of liver: Status: Chronic Code(s): K74.60 - Unspecified cirrhosis of liver (3) LVH (left ventricular hypertrophy): Status: Chronic Code(s): I51.7 - Cardiomegaly (4) UTI (urinary tract infection): Status: Chronic Code(s): N39.0 - Urinary tract infection, site not specified Medications at Discharge Home Medications Metformin HCl 1,000 mg PO BID 02/06/16 gabapentin 800 mg PO TIDCM 02/06/16 furosemide 40 mg PO DAILY 09/07/17 lisinopril 2.5 mg PO DAILY 09/07/17 spironolactone [Aldactone] 100 mg PO DAILY 09/07/17 tramadol 50 mg PO Q6H PRN PRN 11/04/18 flash glucose sensor [FreeStyle Allyson 14 Day Sensor] 08/21/20 Hospital Course Operations None Procedures Cardiac catheterization Summary of Care Provided Minutes Spent on Discharge: 35 Hospital Course: 68-year-old female presents with chest pain. Troponins peaked at 784.7. Patient was seen by cardiology and taken for left heart catheterization on the third. Cardiac cath showed reduced LV systolic function with EF of 40 to 45% with inferior basal hypokinesia. Patient had some mild haziness noted in the LAD but no clear obstruction. Second diagonal branch had a proximal 80% stenosis. Noted collateral from the septal branches of the LAD to the right posterior descending artery. RCA left circumflex artery had nonobstructive atherosclerosis. RCA dominant was occluded proximally with collaterals. Cardiology recommended tertiary facility for further evaluation with either an military pay clerk or discussion with cardiovascular surgery. He discussed with Dr. Blackman at [facility]. Patient will be discharged in stable condition Physical Exam Const alert HEENT normocephalic Eyes PERRL Resp normal respiratory effort, no use of accessory muscles and clear to auscultation bilaterally Cardio regular rate, regular rhythm, S1 normal heart sound and S2 normal heart sound GI normal to inspection, nondistended, normoactive bowel sounds, non-tender and non-distended Extremity normal to inspection Neuro Sensorium / Orientation: awake, alert and oriented to person Psych affect normal Weight / BMI Weight Weight: 81.675 kg Body Mass Index (BMI) 33.6 ABG / Lab / Microbiology Data Result Diagrams: 08/22/20 04:15 08/22/20 04:15 Laboratory: Laboratory Results - last 24 hr 08/21/20 08/21/20 08/21/20 15:10 16:22 18:20 WBC RBC Hgb Hct MCV MCH MCHC RDW Std Deviation RDW Coeff of Monster Plt Count MPV Immature Gran % (Auto) Neut % (Auto) Lymph % (Auto) Saunders % (Auto) Eos % (Auto) Baso % (Auto) Absolute Neuts (auto) Absolute Lymphs (auto) Nucleated RBC % APTT 72.0 H Sodium Potassium Chloride Carbon Dioxide Anion Gap BUN Creatinine Estim Creat Clear Calc Est GFR (MDRD) Af Amer Est GFR (MDRD) Non-Af BUN/Creatinine Ratio Glucose Calcium Total Bilirubin AST ALT Alkaline Phosphatase Troponin I High Sens 307.7 H* Total Protein Albumin Globulin Albumin/Globulin Ratio POC Glucose 87 08/21/20 08/21/20 08/22/20 21:15 21:19 04:15 WBC RBC Hgb Hct MCV MCH MCHC RDW Std Deviation RDW Coeff of Monster Plt Count MPV Immature Gran % (Auto) Neut % (Auto) Lymph % (Auto) Saunders % (Auto) Eos % (Auto) Baso % (Auto) Absolute Neuts (auto) Absolute Lymphs (auto) Nucleated RBC % APTT 51.9 H Sodium 139 Potassium 4.4 Chloride 109 H Carbon Dioxide 24.0 Anion Gap 6 BUN 24 H Creatinine 1.32 H Estim Creat Clear Calc 29.07 Est GFR (MDRD) Af Amer 51 L Est GFR (MDRD) Non-Af 42 L BUN/Creatinine Ratio 18.2 Glucose 118 H Calcium 8.4 L Total Bilirubin 0.80 AST 19 ALT 21 Alkaline Phosphatase 62 Troponin I High Sens Total Protein 6.9 Albumin 3.5 Globulin 3.4 Albumin/Globulin Ratio 1.0 POC Glucose 110 08/22/20 08/22/20 08/22/20 04:15 04:15 04:15 WBC 7.2 RBC 3.61 L Hgb 10.6 L Hct 33.0 L MCV 91.4 MCH 29.4 MCHC 32.1 RDW Std Deviation 48.7 H RDW Coeff of Monster 14.5 Plt Count 95 L MPV 11.0 Immature Gran % (Auto) 0.300 Neut % (Auto) 64.5 Lymph % (Auto) 21.6 Saunders % (Auto) 10.7 H Eos % (Auto) 2.5 Baso % (Auto) 0.4 Absolute Neuts (auto) 4.7 Absolute Lymphs (auto) 1.56 Nucleated RBC % 0 APTT 69.2 H Sodium Cancelled Potassium Cancelled Chloride Cancelled Carbon Dioxide Cancelled Anion Gap Cancelled BUN Cancelled Creatinine Cancelled Estim Creat Clear Calc Est GFR (MDRD) Af Amer Cancelled Est GFR (MDRD) Non-Af Cancelled BUN/Creatinine Ratio Cancelled Glucose Cancelled Calcium Cancelled Total Bilirubin AST ALT Alkaline Phosphatase Troponin I High Sens 261.8 H* Total Protein Albumin Globulin Albumin/Globulin Ratio POC Glucose 08/22/20 11:16 WBC RBC Hgb Hct MCV MCH MCHC RDW Std Deviation RDW Coeff of Monster Plt Count MPV Immature Gran % (Auto) Neut % (Auto) Lymph % (Auto) Saunders % (Auto) Eos % (Auto) Baso % (Auto) Absolute Neuts (auto) Absolute Lymphs (auto) Nucleated RBC % APTT Sodium Potassium Chloride Carbon Dioxide Anion Gap BUN Creatinine Estim Creat Clear Calc Est GFR (MDRD) Af Amer Est GFR (MDRD) Non-Af BUN/Creatinine Ratio Glucose Calcium Total Bilirubin AST ALT Alkaline Phosphatase Troponin I High Sens Total Protein Albumin Globulin Albumin/Globulin Ratio POC Glucose 143 H Radiography Diagnostic Testing: Radiology Impression Echocardiogram 08/21/20 02:51 Interpretation Summary Ejection fraction is EF 40-45 %. Moderate LV systolic Dysfunction Inferior-septal Hypokinesia Need evluation for AV RAISSA/LHC/RHC Mild LAE/Moderate MR Mild AR Mild TR Ordering Physician: Brooklynn Pritchard Referring Physician: Lei Bullock Performed By: Deonte Milner RCS D/C Instructions Discharge Diet: Low fat / Low cholesterol Meaningful Use Info Meaningful Use Diagnoses (Choose all that apply): AMI AMI/Post PCI/Angioplasty Aspirin given w/in 24hrs of arrival?: Yes ASA at discharge?: Yes Antiplatelet Therapy at Discharge:: No Reason Antiplatelet Therapy not ordered:: CABG eval Statins at discharge?: Yes Omkar/ARB at discharge?: No Reason Omkar/ARB not ordered:: Worsening renal dysfunctn Beta Santo at discharge?: No Reason Beta Santo not ordered:: Worsening renal function Done w/ Acute OR measure.: Yes Documented LVEF (%): 40 Discharge Plan Admission Admit Date/Time: 08/21/20 01:56 Attending Provider: Shreyas Burton Primary Care Provider: Donovan Bullock Consulting Providers: Ashley Cooper Instructions Patient Instructions: ED Chest Pain, Noncardiac Discharge Orders/Prescriptions Prescriptions: No Action gabapentin 400 MG capsule 800 mg PO TIDCM RF: 0 Metformin HCl 1,000 MG 1,000 mg PO BID RF: 0 furosemide 40 MG tablet 40 mg PO DAILY RF: 0 spironolactone [Aldactone] 100 MG tablet 100 mg PO DAILY RF: 0 lisinopril 2.5 MG tablet 2.5 mg PO DAILY RF: 0 tramadol 50 MG tablet 50 mg PO Q6H PRN PRN (Reason: Pain) RF: 0 (DME) FreeStyle Allyson 14 Day Sensor Kit MISCELLANEOUS RF: 0 Referrals / Follow Up: Donovan Bullock MD [Primary Care Provider] - Disposition Disposition (needs filled in before D/C Order can be placed): Acute Care Hospital Charges/Coding Visit Charges Inpatient E&M: 15312 Disch Hosp
== END 2020-08-22 14:30 | disposition short-term general hospital (02) | DRG 281 ==
LOC: ED 01:57 → ICU 02:37
PROVIDERS: Internal Medicine Interventional Cardiology; Admitting Provider Family Medicine; Emergency Provider Emergency Medicine; PCP Family Medicine
DX: I21.4 Non-ST elevation (NSTEMI) myocardial infarction (principal); N17.9 Acute kidney failure, unspecified; Z79.4 Long term (current) use of insulin; E66.9 Obesity, unspecified; Z68.31 Body mass index [BMI] 31.0-31.9, adult; I12.9 Hypertensive chronic kidney disease with stage 1 through stage 4 chronic kidney disease, or unspecified chronic kidney disease; E11.22 Type 2 diabetes mellitus with diabetic chronic kidney disease; N18.32 Chronic kidney disease, stage 3b; E11.40 Type 2 diabetes mellitus with diabetic neuropathy, unspecified; E78.5 Hyperlipidemia, unspecified; M48.061 Spinal stenosis, lumbar region without neurogenic claudication; F41.9 Anxiety disorder, unspecified; F32.9 Major depressive disorder, single episode, unspecified; K74.60 Unspecified cirrhosis of liver
CPT/HCPCS: 71045; 80048; 80053; 80061; 80076; 82962; 83735; 84484; 85025; 85730; 93005; 93306; 93458; 99152; 99153; 99251; 99285; J7030; J7040; Q9957; Q9967; A4216; C1760; C1769; C1894; C8929; G0463; J1940; J2405; J3490

== ENCOUNTER → 2020-09-04 12:00 | Outpatient (CLI) | payer MEDICARE, SELFPAY ==
[2020-08-21 02:51] VITALS: BMI 33.6
[2020-09-04 15:31] LABS: Hematocrit 29.3 % (37-47); Hemoglobin 9.1 g/dL (12.0-15.0); Mean Corp Hgb Conc 31.1 g/dL (32-36); Mean Corpuscular Volume 93.3 fL (81-99); Mean Platelet Vol. 10.5 fl (6.2-12.0); Platelet Count 179 K/mm3 (150-450); RBC Distribution Width CV 16.2 % (11.6-14.6); RBC Distribution Width SD 54.5 fl (35.1-43.9); Red Blood Count 3.14 M/mm3 (4.2-5.4)
== END ==
PROVIDERS: PCP Family Medicine
DX: Z00.00 Encounter for general adult medical examination without abnormal findings (principal); D64.9 Anemia, unspecified
CPT/HCPCS: 36415; 85027

== ENCOUNTER → 2020-09-21 15:39 | Outpatient (CLI) | payer MEDICARE, SELFPAY ==
[2020-08-21 02:51] VITALS: BMI 33.6
[2020-09-21 17:49] LABS: Hematocrit 27.1 % (37-47); Hemoglobin 8.7 g/dL (12.0-15.0); Mean Corp Hgb Conc 32.1 g/dL (32-36); Mean Corpuscular Volume 93.4 fL (81-99); Mean Platelet Vol. 10.9 fl (6.2-12.0); Platelet Count 132 K/mm3 (150-450); RBC Distribution Width CV 17.5 % (11.6-14.6); RBC Distribution Width SD 58.6 fl (35.1-43.9); White Blood Count 7.5 K/mm3 (4.4-11.0)
[2020-09-21 18:06] LABS: Anion Gap 8 (5-15); BUN 32 mg/dL (7-18); BUN/Creat Ratio 22.1 RATIO (10-20); Calcium,Total 9.1 mg/dL (8.5-10.1); Chloride 110 mmol/L (98-107); Creatinine, Serum 1.45 mg/dL (0.55-1.02); EST Glomerular Filtration Rate 38 mL/min (>60); Est Glom Filt Rate - Afr Amer 46 mL/min (>60); Glucose 111 mg/dL (74-106); Potassium 4.7 mmol/L (3.5-5.1); Sodium Level 137 mmol/L (136-145)
== END ==
PROVIDERS: PCP Family Medicine; Referring Provider Family Medicine
DX: I25.118 Atherosclerotic heart disease of native coronary artery with other forms of angina pectoris (principal)
CPT/HCPCS: 36415; 80048; 85027

== ENCOUNTER → 2020-10-08 14:03 | Outpatient (CLI) | payer MEDICARE, SELFPAY ==
[2020-10-08 15:20] LABS: Absolute Lymphocyte Count 0.91 X10^3/uL (0.83-4.51); Absolute Neutrophil Count 4.4 X10^3/uL (2.0-7.7); Basophil# 0.03 X10^3/uL; Basophil% 0.5 % (0-1); Eosinophil# 0.18 X10^3/uL; Hematocrit 28.3 % (37-47); Hemoglobin 9.2 g/dL (12.0-15.0); Lymphocyte # 0.91 X10^3/ul (0.83-4.51); Lymphocyte % 15.1 % (19-41); Mean Corp Hgb Conc 32.5 g/dL (32-36); Mean Corpuscular Hgb 30.5 pg (27.0-32.0); Mean Corpuscular Volume 93.7 fL (81-99); Mean Platelet Vol. 11.4 fl (6.2-12.0); Monocyte# 0.52 X10^3/uL; Monocyte% 8.6 % (0-10); NRBC Flagged by Analyzer 0 % (0-5); Neutrophil # 4.37 X10^3/uL (2.7-7.7); Neutrophil % 72.3 % (47-70); Platelet Count 120 K/mm3 (150-450); RBC Distribution Width CV 17.1 % (11.6-14.6); RBC Distribution Width SD 58.8 fl (35.1-43.9); Red Blood Count 3.02 M/mm3 (4.2-5.4)
[2020-10-08 15:47] LABS: Anion Gap 7 (5-15); BUN 29 mg/dL (7-18); BUN/Creat Ratio 15.8 RATIO (10-20); Calcium,Total 9.3 mg/dL (8.5-10.1); Chloride 105 mmol/L (98-107); Creatinine, Serum 1.84 mg/dL (0.55-1.02); EST Glomerular Filtration Rate 29 mL/min (>60); Est Glom Filt Rate - Afr Amer 35 mL/min (>60); Glucose 161 mg/dL (74-106); Potassium 4.1 mmol/L (3.5-5.1); Sodium Level 138 mmol/L (136-145)
[2020-10-08 16:04] LABS: Cholesterol 83 mg/dL (200); High Density Lipoprotein 34 mg/dL; Triglycerides 187 mg/dL; Very Low Density Lipoprotein 37 mg/dL (5-40)
== END ==
PROVIDERS: PCP Family Medicine; Visit Provider Nurse Practitioner Family
DX: E11.9 Type 2 diabetes mellitus without complications (principal); I34.0 Nonrheumatic mitral (valve) insufficiency; I10 Essential (primary) hypertension; D64.9 Anemia, unspecified; Z95.5 Presence of coronary angioplasty implant and graft
CPT/HCPCS: 36415; 80048; 80061; 85025

== ENCOUNTER 2020-10-20 05:30 | Inpatient (IN) | payer MEDICARE, SELFPAY ==
[2020-10-20] VITALS (13 sets, daily range): BP systolic 102–128; BP diastolic 56–83; PULSE 58–68; RESP 12–21; TEMP 36.6–36.8; O2SAT 95–100; BMI 34.3; BMI 33.9
--- NOTE | 2020-10-20 06:15 | EKG12_ITS ---
Test Reason : SOB Blood Pressure : / mmHG Vent. Rate : 064 BPM Atrial Rate : 064 BPM P-R Int : 000 ms QRS Dur : 118 ms QT Int : 476 ms P-R-T Axes : 000 -18 109 degrees QTc Int : 491 ms Sinus Rhythm with PSVC's Nonspecific ST and T wave abnormality Prolonged QT Abnormal ECG Confirmed by IRON ROBLES, KAMLESH ([id number]), technical editor GEOVANNI FRANCO ([id number]) on 10/21/2020 9:54:20 AM Referred By: DUDLEY Confirmed By:KAMLESH PERDUE MD
--- NOTE | 2020-10-20 06:15 | RAD_ITS ---
STUDY: X-RAY CHEST REASON FOR EXAM: Female, 70 years old. Chest pain TECHNIQUE: Single AP portable view of the chest. COMPARISON: August 21, 2020 chest x-ray FINDINGS: The lungs are clear and expanded. There is no demonstrated pleural abnormality. There is mild cardiac enlargement. Normal mediastinum and robert. Normal visualized pulmonary arteries. Normal visualized aortic arch and descending thoracic aorta. There is a visualized spinal catheter. The tip is at T7-T8 Normal visualized ribs, clavicles, and shoulders. There is no demonstrated abnormality of the visualized soft tissue structures of the upper abdomen. RAD/Chest 1 View (Portable) IMPRESSION: Stable chest. Spinal catheter. No visualized focal infiltrate. Electronically Signed: Reshma Ramírez MD at 7:00 EDT Tel , Service support ,
[2020-10-20 06:28] LABS: Absolute Neutrophil Count 5.5 X10^3/uL (2.0-7.7); Basophil# 0.04 X10^3/uL; Basophil% 0.5 % (0-1); Eosinophil# 0.25 X10^3/uL; Eosinophils% 3.3 % (0-5); Hematocrit 32.8 % (37-47); Lymphocyte % 15.6 % (19-41); Mean Corp Hgb Conc 30.5 g/dL (32-36); Mean Corpuscular Hgb 29.5 pg (27.0-32.0); Mean Corpuscular Volume 96.8 fL (81-99); Mean Platelet Vol. 10.9 fl (6.2-12.0); Monocyte# 0.65 X10^3/uL; Monocyte% 8.5 % (0-10); NRBC Flagged by Analyzer 0 % (0-5); Neutrophil # 5.49 X10^3/uL (2.7-7.7); Neutrophil % 71.4 % (47-70); Platelet Count 144 K/mm3 (150-450); RBC Distribution Width CV 17.1 % (11.6-14.6); RBC Distribution Width SD 60.8 fl (35.1-43.9); Red Blood Count 3.39 M/mm3 (4.2-5.4); White Blood Count 7.7 K/mm3 (4.4-11.0)
[2020-10-20 06:52] LABS: Anion Gap 8 (5-15); BUN 30 mg/dL (7-18); BUN/Creat Ratio 17.3 RATIO (10-20); Calcium,Total 9.6 mg/dL (8.5-10.1); Chloride 102 mmol/L (98-107); Creatinine, Serum 1.73 mg/dL (0.55-1.02); EST Glomerular Filtration Rate 31 mL/min (>60); Est Glom Filt Rate - Afr Amer 37 mL/min (>60); Estimated Creatinine Clearance 21.11 ml/min; Glucose 143 mg/dL (74-106); Potassium 4.1 mmol/L (3.5-5.1); Sodium Level 136 mmol/L (136-145); Troponin-I HS 127 pg/mL (3.0-54.0)
[2020-10-20 07:20] LABS: D-Dimer Quantitative (DVT/PE) 0.59 FEU/ug/m (0.27-0.49)
--- NOTE | 2020-10-20 07:59 | EX.ED.DYSGE1 ---
HPI History of Present Illness Chief Complaint: Shortness of Breath Informant: patient Narrative Narrative: 70-year-old female with recent admission for NSTEMI and transferred to [facility] for LAD stenting presents the emergency department with shortness of breath and chest tightness. Patient states that she been doing well since discharge followed up in the office with local cardiology. She states that last evening she began to experience some shortness of breath as well as chest tightness. Patient is under significant amount of stress. The patient was admitted at the end of August had a heart cath here. It was originally planned for radial heart cath but they are unable to proceed and did a femoral cath. Reportedly she developed a retroperitoneal bleed. She was transferred to [facility] for cardiothoracic evaluation for possible CABG and mitral valve replacement because of severe MR. The patient was to have a staged procedure but due to elevated creatinine the LAD and first diagonal were fixed. The 70% circumflex lesion was medically managed and the RCA with 100% mid lesion with collaterals was left alone. Patient states that she been doing quite well until this evening. [facility] Medical History Atherosclerotic heart disease of [place] coronary artery without angina pectoris Diabetes Hypertension Non-rheumatic mitral regurgitation Presence of stent in coronary artery (~09/17/20) Home Medications gabapentin 800 mg PO TIDCM 02/06/16 [History Last Taken 11/04/18] tramadol 50 mg PO Q6H PRN PRN 11/04/18 [History Last Taken 11/04/18] flash glucose sensor [FreeStyle Allyson 14 Day Sensor] 08/21/20 [History Last Taken Unknown] aspirin 81 mg tablet,delayed release 81 mg PO DAILY 09/21/20 [History Last Taken Unknown] metformin 1,000 mg tablet 1,000 mg PO BID 09/21/20 [History Last Taken Unknown] nitroglycerin 0.1 mg/hr transdermal 24 hour patch 1 patch TRANSDERMAL DAILY 09/21/20 [History Last Taken Unknown] nitroglycerin 0.4 mg sublingual tablet 0.4 mg SUBLINGUAL Q5-15M PRN 09/21/20 [History Last Taken Unknown] pantoprazole 40 mg tablet,delayed release 40 mg PO DAILY 09/21/20 [History Last Taken Unknown] sertraline 25 mg tablet 25 mg PO DAILY 09/21/20 [History Last Taken Unknown] furosemide 40 mg tablet 40 mg PO DAILY #90 tab 09/28/20 [Rx Last Taken Unknown] metoprolol succinate 25 mg tablet,extended release 24 hr 25 mg PO DAILY #90 tab 09/28/20 [Rx Last Taken Unknown] rosuvastatin 40 mg tablet 40 mg PO DAILY #90 tab 09/28/20 [Rx Last Taken Unknown] ticagrelor 90 mg tablet 90 mg PO BID #180 tab 09/28/20 [Rx Last Taken Unknown] Allergy/AdvReac Type Severity Reaction Status Date / Time adhesive tape AdvReac TEARS SKIN Verified 09/24/20 14:41 Penicillins AdvReac Hives Verified 10/20/20 05:35 Family History Father Alcoholic Cirrhosis of liver Surgical History History of back surgery Presence of coronary angioplasty implant and graft (~09/17/20) S/P cholecystectomy Social History household members: other details: Patient lives with her family, she has a 9 year old daughter via custody. Smoking Status: Never smoker alcohol intake: never ROS ROS ED Constitutional Constitutional ED: Denies chills or weight loss Eyes Eyes: Denies change in vision or diplopia ENT ENT ED: Denies ear pain, rhinorrhea or sore throat Cardiovascular Cardiovascular: Reports chest pain; Denies orthopnea, palpitations or racing heartbeat Respiratory/Chest Respiratory/Chest: Reports dyspnea and dyspnea on exertion; Denies cough or orthopnea Gastrointestinal Gastrointestinal: Denies abdominal pain, diarrhea, nausea or vomiting Genitourinary Genitourinary ED: Denies dysuria, hematuria or urinary frequency Musculoskeletal Musculoskeletal: Denies arthralgias or myalgias Integumentary Denies abscess or rash Neurologic Neurologic: Denies headache(s) or weakness Psychiatric Psychiatric: Denies anxiety, depression, suicidal ideation or suicidal thoughts Endocrine Endocrinology: Denies polydipsia, polyphagia or polyuria Allergic/Immunologic Allergic/Immunologic ED: Denies mouth swelling, tongue swelling or urticaria EXAM Physical Exam Const Vital Signs: 10/20/20 05:31 10/20/20 05:38 08/31/21 08:21 Temperature 97.8 F Temperature Source Oral Pulse Rate 66 58 L Respiratory Rate 14 12 Respiratory Effort Normal Blood Pressure 127/66 H 118/83 H Blood Pressure Mean 86 94 Pulse Ox 100 100 Oxygen Delivery Method Room Air Room Air Positive well nourished, well developed and obese General Appearance ED: well developed Nutritional Appearance: obese HEENT Reports normocephalic, head/scalp atraumatic and moist mucous membranes HEENT Narrative: There is a yellowish-purple ecchymosis in the right infraorbital region. trauma Eyes PERRL and EOMs intact bilaterally Neck no lymphadenopathy, supple and no JVD Resp normal respiratory effort and clear to auscultation bilaterally Cardio regular rate and regular rhythm GI normal to inspection, nondistended, normoactive bowel sounds and non-tender Palpation: soft Back/Spine no CVA tenderness and normal ROM Extremity normal to inspection General Extremety ED: Negative for edema General Extremity: Negative for edema Neuro oriented x3 and CN's II-XII intact bilaterally Sensorium / Orientation: alert Motor Exam: strength 5/5 throughout Psych mental status grossly normal Mood & Affect: tearful; Negative for depressed Skin no rashes or lesions noted and no wounds MDM MDM MDM Narrative Medical decision making narrative: Patient's troponin is 127. Patient will intermittently have atrial fibrillation rate controlled in the 60s. Other times she will be in sinus. D-dimer age-adjusted is normal. Interpretation of the chest x-ray is no acute process. The case was discussed with on-call cardiology Dr. Lawrence. He recommended transfer to [facility]. They do not have any bed availability to take care of her. I spoke with [facility] [place]. They will accept the patient in transfer. Will await a bed assignment. Lab Data Attestation: I reviewed the patient's lab results. Labs: Laboratory Results - last 24 hr 10/20/20 10/20/20 10/20/20 05:23 05:23 06:29 WBC 7.7 RBC 3.39 L Hgb 10.0 L Hct 32.8 L MCV 96.8 MCH 29.5 MCHC 30.5 L RDW Std Deviation 60.8 H RDW Coeff of Monster 17.1 H Plt Count 144 L MPV 10.9 Immature Gran % (Auto) 0.700 Neut % (Auto) 71.4 H Lymph % (Auto) 15.6 L [place] % (Auto) 8.5 Eos % (Auto) 3.3 Baso % (Auto) 0.5 Absolute Neuts (auto) 5.5 Absolute Lymphs (auto) 1.20 Nucleated RBC % 0 D-Dimer Quant (PE/DVT) 0.59 H* Sodium 136 Potassium 4.1 Chloride 102 Carbon Dioxide 26.0 Anion Gap 8 BUN 30 H Creatinine 1.73 H Estim Creat Clear Calc 21.11 Est GFR (MDRD) Af Amer 37 L Est GFR (MDRD) Non-Af 31 L BUN/Creatinine Ratio 17.3 Glucose 143 H Calcium 9.6 Troponin I High Sens 127 H* Radiography Diagnostic Testing: Radiology Impression Chest X-Ray 10/20/20 06:15 IMPRESSION: Stable chest. Spinal catheter. No visualized focal infiltrate. Electronically Signed: Reshma Ramírez MD at 7:00 EDT Tel , Service support , Critical Care Time Critical Care Time: Yes Critical care time (excluding procedures): 30-74 minutes (35 min), Including time spent:, Discussing w/Patient &/or Family/Real Estate Legal Assistant, Discussing w/Consultants, Arranging Admission or Transfer and Performing Direct Patient Care at Bedside Discharge Plan Triage Chief Complaint: Shortness of Breath ED Provider: Edmundo Gutiérrez Dx/Rx/DC Orders Clinical Impression: Non-ST elevation OR (NSTEMI), Severe mitral valve regurgitation, Atrial fibrillation Prescriptions: No Action gabapentin 400 MG capsule 800 mg PO TIDCM RF: 0 tramadol 50 MG tablet 50 mg PO Q6H PRN PRN (Reason: Pain) RF: 0 (DME) FreeStyle Allyson 14 Day Sensor Kit MISCELLANEOUS RF: 0 aspirin [Adult Low Dose Aspirin] 81 mg tablet,delayed release (DR/EC) 81 mg PO DAILY RF: 0 metformin 1,000 mg tablet 1,000 mg PO BID RF: 0 nitroglycerin 0.4 mg tablet, sublingual 0.4 mg sublingual Q5-15M PRN (Reason: Chest Pain) RF: 0 pantoprazole 40 mg tablet,delayed release (DR/EC) 40 mg PO DAILY RF: 0 nitroglycerin 0.1 mg/hr patch 24 hour 1 patch transdermal DAILY RF: 0 sertraline 25 mg tablet 25 mg PO DAILY RF: 0 metoprolol succinate 25 mg tablet extended release 24 hr 25 mg PO DAILY Qty: 90 RF: 3 rosuvastatin 40 mg tablet 40 mg PO DAILY Qty: 90 RF: 3 Brilinta 90 mg tablet 90 mg PO BID Qty: 180 RF: 3 furosemide 40 mg tablet 40 mg PO DAILY Qty: 90 RF: 3 Primary Care Provider: Donovan Bullock Referrals: Donovan Bullock MD [Primary Care Provider] -
--- NOTE | 2020-10-20 09:49 | ED.RN ---
son merle took pts medication and necklace home with him at pt request
[2020-10-20 13:06] LABS: Bedside Glucose 122 mg/dL (70-110)
[2020-10-20] MEDS: Morphine 4 MG/ML Syringe IV (13:47)
[2020-10-20] MEDS: Ondansetron 4 MG/2 ML Vial IV (13:47)
--- NOTE | 2020-10-20 14:10 | ED.RN ---
THIS BRAN MIXER CALLED [facility] TO CHECK STATUS ON A BED FOR PT. STATED IT WOULD BE BEST TO ADMIT PT TO OUR FACILITY UNTIL A BED BECOMES OPEN. SHE HAS NO ESTIMATE ON WHEN THIS WILL OCCURE
[2020-10-20 14:53] LABS: Troponin-I HS 115 pg/mL (3.0-54.0)
--- NOTE | 2020-10-20 16:08 | ED.RN ---
Yannick Mccord notified that pt will be admitted here to the Progressive Care Unit while awaiting a bed at [facility].
--- NOTE | 2020-10-20 16:11 | PCM.HP.STD ---
Documented by User: Kim Van NP, COLLECTOR OF PORT-C 10/20/20 17:30 HPI - General General Date of Admission: 10/20/20 Chief Complaint: Shortness of breath, chest tightness. HPI Narrative DAVE BECKWITH, is a 70 F who presents to the emergency room due to shortness of breath, chest tightness. Patient states this began around 1:30 AM and has continued since that time. She describes associated shortness of breath. Denies nausea, diaphoresis. Denies pain radiation. She did not try any medication at home including nitro. Patient was transferred to [facility] in August 2020 for evaluation for CABG/mitral valve eval and due to kidney function, underwent stenting to LAD/diagonal with planned further staged treatment. Patient states she was to return in 6 to 8 weeks for additional intervention. She has a past medical history of CAD, chronic heart failure with reduced ejection fraction/ischemic cardiomyopathy, severe mitral valve disease, type 2 diabetes mellitus, chronic kidney disease stage IIIb, hypertension, hyperlipidemia, chronic back pain with lumbar stenosis, anxiety, depression, history of liver cirrhosis. Patient noted to be in atrial fibrillation in emergency room, she denies known history of atrial fibrillation. [facility] Medical History Atherosclerotic heart disease of [place] coronary artery without angina pectoris Diabetes Hypertension Non-rheumatic mitral regurgitation Presence of stent in coronary artery (~09/17/20) Home Medications tramadol 50 mg PO Q6H PRN PRN 11/04/18 [History Last Taken 10/19/20] aspirin 81 mg tablet,delayed release 81 mg PO DAILY 09/21/20 [History Last Taken 10/19/20] metformin 1,000 mg tablet 1,000 mg PO BID 09/21/20 [History Last Taken 10/19/20] nitroglycerin 0.1 mg/hr transdermal 24 hour patch 1 patch TRANSDERMAL DAILY 09/21/20 [History Last Taken 10/19/20] nitroglycerin 0.4 mg sublingual tablet 0.4 mg SUBLINGUAL Q5-15M PRN 09/21/20 [History Last Taken Unknown] pantoprazole 40 mg tablet,delayed release 40 mg PO DAILY 09/21/20 [History Last Taken 10/19/20] sertraline 25 mg tablet 25 mg PO DAILY 09/21/20 [History Last Taken 10/19/20] furosemide 40 mg tablet 40 mg PO DAILY #90 tab 09/28/20 [Rx Last Taken 10/19/20] metoprolol succinate 25 mg tablet,extended release 24 hr 25 mg PO DAILY #90 tab 09/28/20 [Rx Last Taken 10/19/20] rosuvastatin 40 mg tablet 40 mg PO DAILY #90 tab 09/28/20 [Rx Last Taken 10/19/20] ticagrelor 90 mg tablet 90 mg PO BID #180 tab 09/28/20 [Rx Last Taken 10/19/20] gabapentin 800 mg PO BID 10/20/20 [History Last Taken 10/19/20] Allergy/AdvReac Type Severity Reaction Status Date / Time adhesive tape AdvReac TEARS SKIN Verified 09/24/20 14:41 Penicillins AdvReac Hives Verified 10/20/20 05:35 Family History (Updated 10/20/20 @ 16:18 by Kim Van NP, COLLECTOR OF PORT-C) Father Alcoholic Cirrhosis of liver Mother No pertinent past medical history Surgical History History of back surgery Presence of coronary angioplasty implant and graft (~09/17/20) S/P cholecystectomy Social History household members: other details: Patient lives with her family, she has a 9 year old daughter via custody. Smoking Status: Never smoker alcohol intake: never ROS Constitutional Constitutional: Denies change in weight, chills, fatigue, fever(s) or weakness Cardiovascular Cardiovascular: Reports chest pain; Denies edema, lightheadedness, palpitations or syncope Respiratory/Chest Respiratory/Chest: Reports shortness of breath at rest; Denies cough, dyspnea, productive cough or wheezing Gastrointestinal Gastrointestinal: Denies abdominal pain, constipation, diarrhea, nausea or vomiting Genitourinary Genitourinary: Denies burning urination, difficulty urinating, dysuria, hematuria, urinary frequency, urinary incontinence or urinary urgency Musculoskeletal Musculoskeletal: Denies back pain, joint pain or muscle weakness Integumentary Integumentary: Denies erythema, lesions, rash or wounds Neurologic Neurologic: Denies abnormal speech, confusion, dizziness, focal weakness, numbness, paresthesias, seizure-like activity or syncope Psychiatric Psychiatric: Denies anxiety or depression Hematologic/Lymphatic Hematologic/Lymphatic: Denies anemia, easy bleeding or easy bruising Allergic/Immunologic Allergic/Immunologic: Denies hives or asthma Vital Signs Vital Signs Vital Signs: 10/20/20 05:31 10/20/20 05:38 10/20/20 08:21 Temperature 97.8 F Temperature Source Oral Pulse Rate 66 58 L Respiratory Rate 14 12 Respiratory Effort Normal Blood Pressure 127/66 H 118/83 H Blood Pressure Mean 86 94 Pulse Ox 100 100 Oxygen Delivery Method Room Air Room Air 10/20/20 10:52 10/20/20 12:15 10/20/20 13:37 Temperature Temperature Source Pulse Rate 65 63 67 Respiratory Rate 17 21 H 16 Respiratory Effort Blood Pressure 114/58 L 102/72 128/64 H Blood Pressure Mean 76 82 85 Pulse Ox 100 100 100 Oxygen Delivery Method Room Air Room Air 10/20/20 15:00 10/20/20 15:41 Temperature 97.8 F Temperature Source Oral Pulse Rate 62 62 Respiratory Rate 16 16 Respiratory Effort Blood Pressure 120/75 120/75 Blood Pressure Mean 90 90 Pulse Ox 95 95 Oxygen Delivery Method Room Air Room Air Weight Weight: 176 lb Body Mass Index (BMI) 34.3 Physical Exam Const alert, oriented x3 and no apparent distress Orientation / Consciousness: awake, oriented to person, oriented to place and oriented to time HEENT normocephalic and moist oral mucous membranes Eyes PERRL, EOMs intact bilaterally and conjunctivae normal Neck no lymphadenopathy Resp normal respiratory effort and clear to auscultation bilaterally Cardio regular rate, regular rhythm and no murmurs Peripheral Pulses: pulses 2+ throughout GI normal to inspection, nondistended, normoactive bowel sounds, non-tender and non-distended Extremity normal to inspection Skin no rashes or lesions noted Lesions: no lesions Rashes: no rashes Trauma: no lacerations or abrasions Neuro CN's II-XII intact bilaterally, no focal motor deficits, no sensory deficits noted and deep tendon reflexes 2+ bilaterally Psych mental status grossly normal and affect normal Results Lab / Micro Data Result Diagrams: 10/20/20 05:23 10/20/20 05:23 Labs: Laboratory Results - last 24 hr 10/20/20 05:23: WBC 7.7, RBC 3.39 L, Hgb 10.0 L, Hct 32.8 L, MCV 96.8, MCH 29.5, MCHC 30.5 L, RDW Std Deviation 60.8 H, RDW Coeff of Monster 17.1 H, Plt Count 144 L, MPV 10.9, Immature Gran % (Auto) 0.700, Neut % (Auto) 71.4 H, Lymph % (Auto) 15.6 L, [place] % (Auto) 8.5, Eos % (Auto) 3.3, Baso % (Auto) 0.5, Absolute Neuts (auto) 5.5, Absolute Lymphs (auto) 1.20, Nucleated RBC % 0 10/20/20 05:23: Sodium 136, Potassium 4.1, Chloride 102, Carbon Dioxide 26.0, Anion Gap 8, BUN 30 H, Creatinine 1.73 H, Estim Creat Clear Calc 21.11, Est GFR (MDRD) Af Amer 37 L, Est GFR (MDRD) Non-Af 31 L, BUN/Creatinine Ratio 17.3, Glucose 143 H, Calcium 9.6, Troponin I High Sens 127 H* 10/20/20 06:29: D-Dimer Quant (PE/DVT) 0.59 H* 10/20/20 12:57: POC Glucose 122 H 10/20/20 14:30: Troponin I High Sens 115 H Micro: Microbiology 10/20/20 08:35 Nasal Secretion SARS-CoV-2 Antigen (Rapid) - Final Radiology Impression Chest X-Ray 10/20/20 06:15 IMPRESSION: Stable chest. Spinal catheter. No visualized focal infiltrate. Electronically Signed: Reshma Ramírez MD at 7:00 EDT Tel , Service support , Assessment & Plan Assessment/Plan (1) Non-ST elevation PR (NSTEMI): PLAN: 1. NSTEMI, CAD- Awaiting bed at [facility] for further cardiology management. Recent transfer for evaluation of possible CABG however due to kidney function, underwent stenting to LAD and diagonal 09/17/2020 with planned further staged procedure. Continue aspirin, statin, Brilinta, metoprolol. Discussed with cardiology, given patient is in A. fib will initiate heparin drip. 2. Chronic heart failure with reduced ejection fraction/ischemic cardiomyopathy-continue home Lasix regimen. Recent echo August 2020 demonstrated an EF of 40 to 45%. 3. Severe mitral valve disease-recent transfer to tertiary facility for evaluation for mitral valve replacement. Plan was for close observation at that time. 4. Paroxysmal atrial fibrillation, questionable new onset?-continue metoprolol. Not on anticoagulation. 5. Type 2 diabetes gdjhmaac-[id number]-[id number] with sliding scale insulin. Hold oral regimen. 6. Chronic kidney disease stage IIIb-at baseline, trend BMP. 7. Hypertension-stable, continue metoprolol 8. Hyperlipidemia-continue statin. 9. Chronic back pain with lumbar stenosis-as needed pain regimen. 10. Anxiety/depression-on sertraline. 11. History of liver cirrhosis-on Lasix. No longer on Spironolactone DVT prophylaxis-Heparin gtt This patient was seen by WILIAM Nelson under the supervision of Dr. Gannon. Documented by User: Dr. Nito Gannon MD 10/20/20 18:24 HPI - General General Date of Admission: 10/20/20 [facility] Medical History Atherosclerotic heart disease of [place] coronary artery without angina pectoris Diabetes Hypertension Non-rheumatic mitral regurgitation Presence of stent in coronary artery (~09/17/20) Home Medications tramadol 50 mg PO Q6H PRN PRN 11/04/18 [History Last Taken 10/19/20] aspirin 81 mg tablet,delayed release 81 mg PO DAILY 09/21/20 [History Last Taken 10/19/20] metformin 1,000 mg tablet 1,000 mg PO BID 09/21/20 [History Last Taken 10/19/20] nitroglycerin 0.1 mg/hr transdermal 24 hour patch 1 patch TRANSDERMAL DAILY 09/21/20 [History Last Taken 10/19/20] nitroglycerin 0.4 mg sublingual tablet 0.4 mg SUBLINGUAL Q5-15M PRN 09/21/20 [History Last Taken Unknown] pantoprazole 40 mg tablet,delayed release 40 mg PO DAILY 09/21/20 [History Last Taken 10/19/20] sertraline 25 mg tablet 25 mg PO DAILY 09/21/20 [History Last Taken 10/19/20] furosemide 40 mg tablet 40 mg PO DAILY #90 tab 09/28/20 [Rx Last Taken 10/19/20] metoprolol succinate 25 mg tablet,extended release 24 hr 25 mg PO DAILY #90 tab 09/28/20 [Rx Last Taken 10/19/20] rosuvastatin 40 mg tablet 40 mg PO DAILY #90 tab 09/28/20 [Rx Last Taken 10/19/20] ticagrelor 90 mg tablet 90 mg PO BID #180 tab 09/28/20 [Rx Last Taken 10/19/20] gabapentin 800 mg PO BID 10/20/20 [History Last Taken 10/19/20] Allergy/AdvReac Type Severity Reaction Status Date / Time adhesive tape AdvReac TEARS SKIN Verified 09/24/20 14:41 Penicillins AdvReac Hives Verified 10/20/20 05:35 Family History (Updated 10/20/20 @ 16:18 by Kim Van NP, COLLECTOR OF PORT-C) Father Alcoholic Cirrhosis of liver Mother No pertinent past medical history Surgical History History of back surgery Presence of coronary angioplasty implant and graft (~09/17/20) S/P cholecystectomy Social History household members: other details: Patient lives with her family, she has a 9 year old daughter via custody. Smoking Status: Never smoker alcohol intake: never Results Lab / Micro Data Result Diagrams: 10/20/20 05:23 10/20/20 05:23 Charges/Coding Addendum Addendum: Dr. Gannon: I personally reviewed the chart and examined the patient, and agree with the above findings.71-year-old female presented to the hospital with chest pain or shortness of breath. She does have a significant cardiac history and was recently intervened at [facility]. She was to undergo staged treatment and she was supposed to return 6 to 8 weeks later for additional intervention. On arrival here to the ER she was found to be in A. fib which she does not have a known history. The case was discussed with cardiology who recommended transfer to higher level of care. [facility] was full therefore she was placed on the waiting list for [facility] however they still do not have a bed therefore she was admitted for monitoring. In the meantime we will place her on a heparin drip given her new onset A. fib while awaiting transfer to [facility]. We will continue all of her home medications and keep her stable. Cardiology is aware that she was admitted therefore if necessary may be able to place them on consult if necessary pending transfer. Visit Charges OBSV E&M: 78314 Initial observation care L3
--- NOTE | 2020-10-20 17:40 | EKG12_ITS ---
Test Reason : CP ADMISSION EKG Blood Pressure : / mmHG Vent. Rate : 060 BPM Atrial Rate : 060 BPM P-R Int : 190 ms QRS Dur : 114 ms QT Int : 496 ms P-R-T Axes : 051 -24 095 degrees QTc Int : 496 ms Normal sinus rhythm with sinus arrhythmia Inferior infarct , age undetermined Abnormal ECG Confirmed by IRON ROBLES, KAMLESH ([id number]), market editor GEOVANNI FRANCO ([id number]) on 10/22/2020 9:15:30 AM Referred By: MAX Confirmed By:KAMLESH PERDUE MD
[2020-10-20 18:21] LABS: BNP,B-Type NATRIURETIC PEPTIDE 230.6 pg/mL (0-100)
[2020-10-20 19:16] LABS: International Normalized Ratio 1.3; Prothrombin Time (Protime)PT. 15.8 SECONDS (11.7-14.9)
[2020-10-20 19:17] LABS: Partial Thromboplast Time 39.5 Seconds (24.1-36.2)
[2020-10-20 19:27] LABS: Troponin-I HS 116 pg/mL (3.0-54.0)
[2020-10-20] MEDS: Heparin Injection (Vial) 5,000 UNIT/ML VIAL 4000 UNIT IV (19:50)
[2020-10-20] MEDS: HEPARIN/D5w 25,000 UNITS 25,000 UNITS/250 ML IV.SOLN. 9 UNITS IV (19:54)
[2020-10-20] MEDS: MENTHOL 226.8 GM JAR 1 APPLIC TOPICAL (22:44)
[2020-10-20] MEDS: Gabapentin 800 MG Tablet PO (22:44)
[2020-10-20] MEDS: Atorvastatin Calcium 80 MG Tablet PO (22:44)
[2020-10-20] MEDS: TICAGRELOR 90 MG TABLET PO (22:44)
[2020-10-20 22:50] LABS: Bedside Glucose 98 mg/dL (70-110)
--- NOTE | 2020-10-20 23:32 | NURSING ---
Pandemic charting in use
--- NOTE | 2020-10-20 23:34 | PCS.PANDOC ---
PANDEMIC DOCUMENTATION INITIATED: Date: 10/05/2020 Time: 190
[2020-10-21] VITALS (11 sets, daily range): BP systolic 105–142; BP diastolic 51–65; PULSE 65–80; RESP 14–20; TEMP 36.4–37.7; O2SAT 93–100
[2020-10-21 02:38] LABS: Partial Thromboplast Time 108.4 Seconds (24.1-36.2)
[2020-10-21 05:44] LABS: Anion Gap 5 (5-15); BUN 26 mg/dL (7-18); BUN/Creat Ratio 16.2 RATIO (10-20); Calcium,Total 9.2 mg/dL (8.5-10.1); Chloride 106 mmol/L (98-107); EST Glomerular Filtration Rate 34 mL/min (>60); Est Glom Filt Rate - Afr Amer 41 mL/min (>60); Estimated Creatinine Clearance 22.83 ml/min; Glucose 107 mg/dL (74-106); Potassium 4.1 mmol/L (3.5-5.1); Sodium Level 139 mmol/L (136-145)
[2020-10-21 06:51] LABS: Bedside Glucose 113 mg/dL (70-110)
[2020-10-21] MEDS: Nitroglycerin 0.1 MG Patch TD (09:45)
[2020-10-21] MEDS: Aspirin E.C. 81 MG Tablet PO (09:45)
[2020-10-21] MEDS: Gabapentin 800 MG Tablet PO ×2 (09:45→21:59)
[2020-10-21] MEDS: Metoprolol(XL)Succ 25 MG Tablet PO (09:45)
[2020-10-21] MEDS: Pantoprazole Sodium 40 MG Tablet PO (09:45)
[2020-10-21] MEDS: Sertraline 50 MG Tablet 25 MG PO (09:45)
[2020-10-21] MEDS: Furosemide 40 MG Tablet PO (09:45)
[2020-10-21] MEDS: TICAGRELOR 90 MG TABLET PO ×2 (09:45→21:59)
[2020-10-21 11:04] LABS: Partial Thromboplast Time 36.4 Seconds (24.1-36.2)
[2020-10-21] MEDS: Insulin Lispro 100 UNIT/ML INSULN.PEN SC ×2 (11:47→22:01)
[2020-10-21] MEDS: Heparin Injection (Vial) 5,000 UNIT/ML VIAL IV (11:47)
--- NOTE | 2020-10-21 12:56 | PN.HOSP_ITS ---
Documented by User: Kim Van NP, FRONT END MANAGER-C 10/21/20 13:04 Subjective Subjective Patient seen and examined. Denies further chest pain overnight. Denies shortness of breath. Awaiting bed at [facility]. Objective Data Objective Data Vital Signs: Vital Signs Temp Pulse Resp BP Pulse Ox 97.6 F L 65 18 117/65 96 10/21/20 11:55 10/21/20 11:55 10/21/20 11:55 10/21/20 11:55 10/21/20 11:55 Oxygen Delivery Method Room Air Weight: 173 lb 11.588 oz Body Mass Index (BMI) 33.9 Intake & Output: Intake and Output for Last 24 Hours 10/19/20 10/20/20 10/21/20 23:59 23:59 23:59 Intake Total 966.75 / 966.75 Output Total 200 / 200 Balance 766.75 / 766.75 Lab / Micro Data Result Diagrams: 10/20/20 05:23 10/21/20 05:10 Labs: Laboratory Results - last 24 hr 10/20/20 05:23: B-Natriuretic Peptide 230.6 H 10/20/20 12:57: POC Glucose 122 H 10/20/20 14:30: Troponin I High Sens 115 H 10/20/20 18:57: PT 15.8 H, INR 1.3, APTT 39.5 H 10/20/20 18:57: Troponin I High Sens 116 H 10/20/20 22:42: POC Glucose 98 10/21/20 01:55: APTT 108.4 H* 10/21/20 05:10: Sodium 139, Potassium 4.1, Chloride 106, Carbon Dioxide 28.0, Anion Gap 5, BUN 26 H, Creatinine 1.60 H, Estim Creat Clear Calc 22.83, Est GFR (MDRD) Af Amer 41 L, Est GFR (MDRD) Non-Af 34 L, BUN/Creatinine Ratio 16.2, Glucose 107 H, Calcium 9.2 10/21/20 06:46: POC Glucose 113 H 10/21/20 10:35: APTT 36.4 H Micro: Microbiology 10/20/20 08:35 Nasal Secretion SARS-CoV-2 Antigen (Rapid) - Final Physical Exam Const alert, oriented x3 and no apparent distress Orientation / Consciousness: awake, oriented to person, oriented to place and oriented to time HEENT normocephalic and moist oral mucous membranes Eyes PERRL, EOMs intact bilaterally and conjunctivae normal Neck no lymphadenopathy Resp normal respiratory effort and clear to auscultation bilaterally Cardio regular rate, regular rhythm and no murmurs Peripheral Pulses: pulses 2+ throughout GI normal to inspection, nondistended, normoactive bowel sounds, non-tender and non-distended Extremity normal to inspection General Extremity: edema bilateral lower extremity Details: mild Skin no rashes or lesions noted Lesions: no lesions Rashes: no rashes Trauma: no lacerations or abrasions Neuro CN's II-XII intact bilaterally, no focal motor deficits, no sensory deficits noted and deep tendon reflexes 2+ bilaterally Psych mental status grossly normal and affect normal Assessment & Plan Assessment/Plan (1) Non-ST elevation RI (NSTEMI): (2) Severe mitral valve regurgitation: PLAN: 1. NSTEMI, CAD- Awaiting bed at [facility] for further ca rdiology management. Recent transfer for evaluation of possible CABG however due to kidney function, underwent stenting to LAD and diagonal 09/17/2020 with planned further staged procedure. Continue aspirin, statin, Brilinta, metoprolol. Discussed with cardiology, continue heparin drip. 2. Chronic heart failure with reduced ejection fraction/ischemic cardiomyopathy- continue home Lasix regimen. Recent echo August 2020 demonstrated an EF of 40 to 45%. 3. Severe mitral valve disease-recent transfer to tertiary facility for evaluation for mitral valve replacement. Plan was for close observation at that time. 4. Paroxysmal atrial fibrillation, questionable new onset?-continue metoprolol. Not on anticoagulation. Heparin drip as noted above. 5. Type 2 diabetes [id number] with sliding scale insulin. Hold oral regimen. 6. Chronic kidney disease stage IIIb-at baseline, trend BMP. 7. Hypertension-stable, continue metoprolol 8. Hyperlipidemia-continue statin. 9. Chronic back pain with lumbar stenosis-as needed pain regimen. 10. Anxiety/depression-on sertraline. 11. History of liver cirrhosis-on Lasix. No longer on Spironolactone DVT prophylaxis-Heparin gtt Discharge plan: [facility] This patient was seen by WILIAM Nelson under the supervision of Dr. Gannon. Documented by User: Dr. Nito Gannon MD 10/21/20 13:20 Objective Data Lab / Micro Data Result Diagrams: 10/20/20 05:23 10/21/20 05:10 Charges/Coding Addendum Addendum: Dr. Gannon: I personally reviewed the chart and examined the patient, and agree with the above findings.71-year-old female presented to the hospital with chest pain or shortness of breath. She does have a significant cardiac history and was recently intervened at [facility]. She was to undergo staged treatment and she was supposed to return 6 to 8 weeks later for additional intervention. On arrival here to the ER she was found to be in A. fib which she does not have a known history. The case was discussed with cardiology who recommended transfer to higher level of care. [facility] was full therefore she was placed on the waiting list for [facility] however they still do not have a bed therefore she was admitted for monitoring. In the meantime we will place her on a heparin drip given her new onset A. fib while awaiting transfer to [facility]. We will continue all of her home medications and keep her stable. Cardiology is aware that she was admitted therefore if necessary may be able to place them on consult if necessary pending transfer. 10/21/20: Doing well today, denies any significant chest pain. We will continue with the heparin drip for now and continue to monitor her closely while awaiting bed availability at [facility] Visit Charges Inpatient E&M: 26839 Subs Hosp L2
--- NOTE | 2020-10-21 16:04 | CHAPLAIN ---
Type of Pastoral Visit _x__ Initial Visit ___ Follow-up Visit ___ On-call Visit ___ General Patient Visit ___ Spiritual Assessment ___ Family Conference ___ Bereavement ___ Rapid Response ___ Code Blue ___ Other (describe below) Pastoral Care Referral From _x__ Patient ___ Family ___ Nurse ___ Physician ___ Baker Operator Automatic ___ Broadcast Technician ___ Other (describe below) Sacrament/Intervention _x__ Active listening ___ Anointing ___ Temple ___ Bereavement ___ Communion _x__ Елена exploration ___ _x__ Life review _x__ Prayer ___ Reconciliation ___ Sacrament of Sick _x__ Supportive presence ___ Wedding ___ Other (describe below) Pastoral Comments time given to sit at bedside with this patient who is known through past admission and through many admissions of her who this year; pt expresses her grief and her questions about spiritual matters; pt welcomes presence and prayer; pt is waiting for transfer to [place]; pt has worries about a young daughter she is raising
[2020-10-21 16:06] LABS: Bedside Glucose 215 mg/dL (70-110)
[2020-10-21 17:06] LABS: Bedside Glucose 107 mg/dL (70-110)
[2020-10-21 18:24] LABS: Partial Thromboplast Time 59.7 Seconds (24.1-36.2)
--- NOTE | 2020-10-21 18:28 | PCM.DC.SUM ---
Documented by User: Kim Van NP, [employer]-C 10/21/20 18:35 Providers Date of Admission: 10/21/20 Date of Discharge: 10/21/20 Primary Care Physician: Dr. Donovan Bullock MD Reason For Visit: NON STEMI,CHEST PAIN,MR Diagnosis Discharge Diagnosis (1) Non-ST elevation CO (NSTEMI): Status: Acute Code(s): I21.4 - Non-ST elevation (NSTEMI) myocardial infarction (2) Severe mitral valve regurgitation: Status: Acute Code(s): I34.0 - Nonrheumatic mitral (valve) insufficiency Medications at Discharge Home Medications tramadol 50 mg PO Q6H PRN PRN 11/04/18 aspirin 81 mg tablet,delayed release 81 mg PO DAILY 09/21/20 metformin 1,000 mg tablet 1,000 mg PO BID 09/21/20 nitroglycerin 0.1 mg/hr transdermal 24 hour patch 1 patch TRANSDERMAL DAILY 09/21/20 nitroglycerin 0.4 mg sublingual tablet 0.4 mg SUBLINGUAL Q5-15M PRN 09/21/20 pantoprazole 40 mg tablet,delayed release 40 mg PO DAILY 09/21/20 sertraline 25 mg tablet 25 mg PO DAILY 09/21/20 furosemide 40 mg tablet 40 mg PO DAILY #90 tab 09/28/20 metoprolol succinate 25 mg tablet,extended release 24 hr 25 mg PO DAILY #90 tab 09/28/20 rosuvastatin 40 mg tablet 40 mg PO DAILY #90 tab 09/28/20 ticagrelor 90 mg tablet 90 mg PO BID #180 tab 09/28/20 gabapentin 800 mg PO BID 10/20/20 Hospital Course Operations None Procedures None Summary of Care Provided Minutes Spent on Discharge: 35 Hospital Course: Patient is a 70-year-old female admitted 10/20/2020 due to shortness of breath and chest tightness. 1. NSTEMI, CAD- Recent transfer for evaluation of possible CABG however due to kidney function, underwent stenting to LAD and diagonal 09/17/2020 with planned further staged procedure. Continue aspirin, statin, Brilinta, metoprolol. Discussed with cardiology, given patient is in A. fib will initiate heparin drip. Transfer to [facility] for further cardiac management. 2. Chronic heart failure with reduced ejection fraction/ischemic cardiomyopathy-continue home Lasix regimen. Recent echo August 2020 demonstrated an EF of 40 to 45%. 3. Severe mitral valve disease-recent transfer to tertiary facility for evaluation for mitral valve replacement. Plan was for close observation at that time. 4. Paroxysmal atrial fibrillation, questionable new onset?-continue metoprolol. Not on anticoagulation. Heparin drip as noted above. 5. Type 2 diabetes [id number] with sliding scale insulin. Hold oral regimen. 6. Chronic kidney disease stage IIIb-at baseline, trend BMP. 7. Hypertension-stable, continue metoprolol 8. Hyperlipidemia-continue statin. 9. Chronic back pain with lumbar stenosis-as needed pain regimen. 10. Anxiety/depression-on sertraline. 11. History of liver cirrhosis-on Lasix. No longer on Spironolactone Physical Exam Const alert, oriented x3 and no apparent distress Orientation / Consciousness: awake, oriented to person, oriented to place and oriented to time HEENT normocephalic and moist oral mucous membranes Eyes PERRL, EOMs intact bilaterally and conjunctivae normal Neck no lymphadenopathy Resp normal respiratory effort and clear to auscultation bilaterally Cardio regular rate, regular rhythm and no murmurs Peripheral Pulses: pulses 2+ throughout GI normal to inspection, nondistended, normoactive bowel sounds, non-tender and non-distended Extremity normal to inspection Skin no rashes or lesions noted Lesions: no lesions Rashes: no rashes Trauma: no lacerations or abrasions Neuro CN's II-XII intact bilaterally, no focal motor deficits, no sensory deficits noted and deep tendon reflexes 2+ bilaterally Psych mental status grossly normal and affect normal Patient seen and examined prior to discharge. Physical assessment as noted above. Transfer to [facility] for further management. This patient was seen by WILIAM Nelson under the supervision of Dr. Gannon. Weight / BMI Weight Weight: 173 lb 11.588 oz Body Mass Index (BMI) 33.9 ABG / Lab / Microbiology Data Result Diagrams: 10/20/20 05:23 10/21/20 05:10 Laboratory: Laboratory Results - last 24 hr 10/20/20 18:57: PT 15.8 H, INR 1.3, APTT 39.5 H 10/20/20 18:57: Troponin I High Sens 116 H 10/20/20 22:42: POC Glucose 98 10/21/20 01:55: APTT 108.4 H* 10/21/20 05:10: Sodium 139, Potassium 4.1, Chloride 106, Carbon Dioxide 28.0, Anion Gap 5, BUN 26 H, Creatinine 1.60 H, Estim Creat Clear Calc 22.83, Est GFR (MDRD) Af Amer 41 L, Est GFR (MDRD) Non-Af 34 L, BUN/Creatinine Ratio 16.2, Glucose 107 H, Calcium 9.2 10/21/20 06:46: POC Glucose 113 H 10/21/20 10:35: APTT 36.4 H 10/21/20 11:38: POC Glucose 215 H 10/21/20 16:42: POC Glucose 107 10/21/20 17:50: APTT 59.7 H Microbiology: Microbiology 10/20/20 08:35 Nasal Secretion SARS-CoV-2 Antigen (Rapid) - Final Meaningful Use Info Meaningful Use Diagnoses (Choose all that apply): None applicable Discharge Plan Admission Admit Date/Time: 10/21/20 12:18 Attending Provider: Nito Gannon Primary Care Provider: Donovan Bullock Discharge Orders/Prescriptions Prescriptions: No Action tramadol 50 MG tablet 50 mg PO Q6H PRN PRN (Reason: Pain) RF: 0 gabapentin 800 mg tablet 800 mg PO BID RF: 0 aspirin [Adult Low Dose Aspirin] 81 mg tablet,delayed release (DR/EC) 81 mg PO DAILY RF: 0 metformin 1,000 mg tablet 1,000 mg PO BID RF: 0 nitroglycerin 0.4 mg tablet, sublingual 0.4 mg sublingual Q5-15M PRN (Reason: Chest Pain) RF: 0 pantoprazole 40 mg tablet,delayed release (DR/EC) 40 mg PO DAILY RF: 0 nitroglycerin 0.1 mg/hr patch 24 hour 1 patch transdermal DAILY RF: 0 sertraline 25 mg tablet 25 mg PO DAILY RF: 0 metoprolol succinate 25 mg tablet extended release 24 hr 25 mg PO DAILY Qty: 90 RF: 3 rosuvastatin 40 mg tablet 40 mg PO DAILY Qty: 90 RF: 3 Brilinta 90 mg tablet 90 mg PO BID Qty: 180 RF: 3 furosemide 40 mg tablet 40 mg PO DAILY Qty: 90 RF: 3 Referrals / Follow Up: Donovan Bullock MD [Primary Care Provider] - Disposition Disposition (needs filled in before D/C Order can be placed): [facility] Documented by User: Dr. Nito Gannon MD 10/22/20 07:17 Providers Date of Admission: 10/21/20 Reason For Visit: NON STEMI,CHEST PAIN,MR Medications at Discharge Home Medications tramadol 50 mg PO Q6H PRN PRN 11/04/18 aspirin 81 mg tablet,delayed release 81 mg PO DAILY 09/21/20 metformin 1,000 mg tablet 1,000 mg PO BID 09/21/20 nitroglycerin 0.1 mg/hr transdermal 24 hour patch 1 patch TRANSDERMAL DAILY 09/21/20 nitroglycerin 0.4 mg sublingual tablet 0.4 mg SUBLINGUAL Q5-15M PRN 09/21/20 pantoprazole 40 mg tablet,delayed release 40 mg PO DAILY 09/21/20 sertraline 25 mg tablet 25 mg PO DAILY 09/21/20 furosemide 40 mg tablet 40 mg PO DAILY #90 tab 09/28/20 metoprolol succinate 25 mg tablet,extended release 24 hr 25 mg PO DAILY #90 tab 09/28/20 rosuvastatin 40 mg tablet 40 mg PO DAILY #90 tab 09/28/20 ticagrelor 90 mg tablet 90 mg PO BID #180 tab 09/28/20 gabapentin 800 mg PO BID 10/20/20 ABG / Lab / Microbiology Data Result Diagrams: 10/20/20 05:23 10/21/20 05:10 Discharge Plan Admission Admit Date/Time: 10/21/20 12:18 Attending Provider: Nito Gannon Primary Care Provider: Donovan Bullock Discharge Orders/Prescriptions Prescriptions: No Action tramadol 50 MG tablet 50 mg PO Q6H PRN PRN (Reason: Pain) RF: 0 gabapentin 800 mg tablet 800 mg PO BID RF: 0 aspirin [Adult Low Dose Aspirin] 81 mg tablet,delayed release (DR/EC) 81 mg PO DAILY RF: 0 metformin 1,000 mg tablet 1,000 mg PO BID RF: 0 nitroglycerin 0.4 mg tablet, sublingual 0.4 mg sublingual Q5-15M PRN (Reason: Chest Pain) RF: 0 pantoprazole 40 mg tablet,delayed release (DR/EC) 40 mg PO DAILY RF: 0 nitroglycerin 0.1 mg/hr patch 24 hour 1 patch transdermal DAILY RF: 0 sertraline 25 mg tablet 25 mg PO DAILY RF: 0 metoprolol succinate 25 mg tablet extended release 24 hr 25 mg PO DAILY Qty: 90 RF: 3 rosuvastatin 40 mg tablet 40 mg PO DAILY Qty: 90 RF: 3 Brilinta 90 mg tablet 90 mg PO BID Qty: 180 RF: 3 furosemide 40 mg tablet 40 mg PO DAILY Qty: 90 RF: 3 Referrals / Follow Up: Donovan Bullock MD [Primary Care Provider] - Disposition Disposition (needs filled in before D/C Order can be placed): Acute Care Hospital Charges/Coding Addendum Addendum: Dr. Gannon: I personally reviewed the chart and examined the patient, and agree with the above findings.71-year-old female presented to the hospital with chest pain or shortness of breath. She does have a significant cardiac history and was recently intervened at [facility]. She was to undergo staged treatment and she was supposed to return 6 to 8 weeks later for additional intervention. On arrival here to the ER she was found to be in A. fib which she does not have a known history. The case was discussed with cardiology who recommended transfer to higher level of care. [facility] was full therefore she was placed on the waiting list for [facility] however they still do not have a bed therefore she was admitted for monitoring. In the meantime we will place her on a heparin drip given her new onset A. fib while awaiting transfer to [facility]. We will continue all of her home medications and keep her stable. Cardiology is aware that she was admitted therefore if necessary may be able to place them on consult if necessary pending transfer. 10/21/20: Doing well today, denies any significant chest pain. Her head heparin drip was continued for her new onset A. fib, and she did receive a bed at [facility] today and therefore was discharged in transfer for further cardiac work-up and management. Visit Charges Inpatient E&M: 92154 Disch Hosp
--- NOTE | 2020-10-21 19:27 | NURSING ---
message left with son regarding transfer to [facility] per patient request.
[2020-10-21] MEDS: Atorvastatin Calcium 80 MG Tablet PO (21:59)
[2020-10-21 22:06] LABS: Bedside Glucose 175 mg/dL (70-110)
== END 2020-10-21 22:12 | disposition short-term general hospital (02) | DRG 281 ==
LOC: ED 06:20 → PCU 19:06
PROVIDERS: Emergency Medicine; Nurse Practitioner Family; Admitting Provider Family Medicine; Emergency Provider Emergency Medicine; PCP Family Medicine; Visit Provider Family Medicine
DX: I21.4 Non-ST elevation (NSTEMI) myocardial infarction (principal); I13.0 Hypertensive heart and chronic kidney disease with heart failure and stage 1 through stage 4 chronic kidney disease, or unspecified chronic kidney disease; I50.22 Chronic systolic (congestive) heart failure; I25.10 Atherosclerotic heart disease of native coronary artery without angina pectoris; I34.0 Nonrheumatic mitral (valve) insufficiency; I48.0 Paroxysmal atrial fibrillation; N18.32 Chronic kidney disease, stage 3b; E11.22 Type 2 diabetes mellitus with diabetic chronic kidney disease; I25.5 Ischemic cardiomyopathy; E78.5 Hyperlipidemia, unspecified; F41.9 Anxiety disorder, unspecified; F32.9 Major depressive disorder, single episode, unspecified; G89.29 Other chronic pain; M48.061 Spinal stenosis, lumbar region without neurogenic claudication; Z79.899 Other long term (current) drug therapy; Z95.5 Presence of coronary angioplasty implant and graft; Z79.84 Long term (current) use of oral hypoglycemic drugs; Z79.82 Long term (current) use of aspirin; Z79.02 Long term (current) use of antithrombotics/antiplatelets; K74.60 Unspecified cirrhosis of liver
CPT/HCPCS: 36415; 71045; 80048; 82962; 83880; 84484; 85025; 85379; 85610; 85730; 87426; 93005; 99285; A4216; J2405

== ENCOUNTER → 2020-11-11 11:12 | Outpatient (CLI) | payer MEDICARE, SELFPAY ==
[2020-11-11 13:50] LABS: Anion Gap 6 (5-15); BUN 48 mg/dL (7-18); Calcium,Total 8.9 mg/dL (8.5-10.1); Chloride 109 mmol/L (98-107); Creatinine, Serum 2.52 mg/dL (0.55-1.02); EST Glomerular Filtration Rate 20 mL/min (>60); Est Glom Filt Rate - Afr Amer 24 mL/min (>60); Glucose 147 mg/dL (74-106); Potassium 6.1 mmol/L (3.5-5.1); Sodium Level 135 mmol/L (136-145)
== END ==
PROVIDERS: Nurse Practitioner Family; PCP Family Medicine; Visit Provider Internal Medicine Cardiovascular Disease
DX: Z95.5 Presence of coronary angioplasty implant and graft (principal); I25.10 Atherosclerotic heart disease of native coronary artery without angina pectoris; I51.9 Heart disease, unspecified; I51.7 Cardiomegaly
CPT/HCPCS: 36415; 80048

== ENCOUNTER → 2020-11-12 10:00 | Outpatient (CLI) | payer MEDICARE, SELFPAY ==
[2020-11-12 10:52] LABS: Anion Gap 7 (5-15); BUN 53 mg/dL (7-18); BUN/Creat Ratio 22.5 RATIO (10-20); Calcium,Total 8.5 mg/dL (8.5-10.1); Chloride 108 mmol/L (98-107); Creatinine, Serum 2.36 mg/dL (0.55-1.02); EST Glomerular Filtration Rate 22 mL/min (>60); Est Glom Filt Rate - Afr Amer 26 mL/min (>60); Glucose 151 mg/dL (74-106); Potassium 6.1 mmol/L (3.5-5.1); Sodium Level 136 mmol/L (136-145)
== END ==
PROVIDERS: PCP Family Medicine; Visit Provider Internal Medicine Cardiovascular Disease
DX: E87.5 Hyperkalemia (principal)
CPT/HCPCS: 80048

== ENCOUNTER → 2020-11-13 11:19 | Outpatient (CLI) | payer MEDICARE, SELFPAY ==
[2020-11-13 12:42] LABS: Anion Gap 7 (5-15); BUN 44 mg/dL (7-18); Calcium,Total 8.9 mg/dL (8.5-10.1); Chloride 107 mmol/L (98-107); EST Glomerular Filtration Rate 26 mL/min (>60); Est Glom Filt Rate - Afr Amer 32 mL/min (>60); Glucose 164 mg/dL (74-106); Sodium Level 137 mmol/L (136-145)
== END ==
PROVIDERS: PCP Family Medicine; Referring Provider Internal Medicine Cardiovascular Disease; Visit Provider Internal Medicine Cardiovascular Disease
DX: E78.5 Hyperlipidemia, unspecified (principal); I25.2 Old myocardial infarction
CPT/HCPCS: 80048

== ENCOUNTER 2020-11-13 17:24 | Emergency (ER) | payer MEDICARE, SELFPAY ==
[2020-11-13 17:29] VITALS: BP 114/54; PULSE 79; RESP 18; TEMP 37.1; O2SAT 98; BMI 33.6
--- NOTE | 2020-11-13 17:48 | EKG12_ITS ---
Test Reason : ABN LABS Blood Pressure : / mmHG Vent. Rate : 074 BPM Atrial Rate : 074 BPM P-R Int : 170 ms QRS Dur : 118 ms QT Int : 410 ms P-R-T Axes : 063 -23 120 degrees QTc Int : 455 ms Sinus rhythm with Premature supraventricular complexes Incomplete left bundle branch block Inferior infarct , age undeterined ST & T wave abnormality, consider lateral ischemia Abnormal ECG Confirmed by IRON ROBLES, KAMLESH ([id number]), slot editor GEOVANNI FRANCO ([id number]) on 11/16/2020 12:56:42 PM Referred By: JENIFER Confirmed By:KAMLESH PERDUE MD
[2020-11-13 18:28] LABS: Anion Gap 8 (5-15); BUN 41 mg/dL (7-18); BUN/Creat Ratio 23.3 RATIO (10-20); Calcium,Total 8.7 mg/dL (8.5-10.1); Chloride 109 mmol/L (98-107); Creatinine, Serum 1.76 mg/dL (0.55-1.02); EST Glomerular Filtration Rate 30 mL/min (>60); Est Glom Filt Rate - Afr Amer 37 mL/min (>60); Glucose 133 mg/dL (74-106); Sodium Level 139 mmol/L (136-145)
--- NOTE | 2020-11-13 19:07 | EX.ED.DYSGE1 ---
HPI History of Present Illness Chief Complaint: Abn Labs Informant: patient and other (After [place] call prior to her arrival.) Onset/Context/Timing Onset: Days Context: Sudden Onset (Presumed) Timing: Continuous Quality: Hyperkalemia Location: Electrolyte abnormality Current Severity: Mild Maximum Severity: Mild Worsened by: Unknown Relieved by: Nothing Associated Symptoms Associated Symptoms: No associated symptoms Narrative Narrative: Patient is a 70-year-old woman with history of diabetes, acute kidney injury, cardiac disease, and hypertension who was sent to the emergency department because of potassium 6.0. EKG was obtained while patient was in triage. There is no changes consistent with hyperkalemia. She denies fever, chills night sweats patient has headache, she denies visual, ocular auditory symptoms. She denies cardiac respiratory symptoms. She denies use salt substitute on her food. She denies abdominal pain, she denies nausea vomiting. She states she has diarrhea since placed on Kayexalate. She denies dysuria, frequency, urgency or hematuria. Prior similar symptoms: No Recent Illness/Hospitalization: No PFSH PFS Medical History Atherosclerotic heart disease of [place] coronary artery without angina pectoris Atrial fibrillation Diabetes Hypertension Non-rheumatic mitral regurgitation Presence of stent in coronary artery (~09/17/20) Severe mitral valve regurgitation Home Medications tramadol 50 mg PO Q6H PRN PRN 11/04/18 [History Last Taken 10/19/20] aspirin 81 mg tablet,delayed release 81 mg PO DAILY 09/21/20 [History Last Taken 10/19/20] metformin 1,000 mg tablet 1,000 mg PO BID 09/21/20 [History Last Taken 10/19/20] pantoprazole 40 mg tablet,delayed release 40 mg PO DAILY 09/21/20 [History Last Taken 10/19/20] sertraline 25 mg tablet 25 mg PO DAILY 09/21/20 [History Last Taken 10/19/20] furosemide 40 mg tablet 40 mg PO DAILY #90 tab 09/28/20 [Rx Last Taken 10/19/20] metoprolol succinate 25 mg tablet,extended release 24 hr 25 mg PO DAILY #90 tab 09/28/20 [Rx Last Taken 10/19/20] rosuvastatin 40 mg tablet 40 mg PO DAILY #90 tab 09/28/20 [Rx Last Taken 10/19/20] apixaban 5 mg tablet 5 mg PO BID 11/11/20 [History Last Taken Unknown] empagliflozin 10 mg tablet 10 mg PO DAILY 11/11/20 [History Last Taken Unknown] gabapentin 400 mg capsule 400 mg PO 4X/DAY cap 11/11/20 [History Last Taken Unknown] isosorbide mononitrate 30 mg tablet,extended release 24 hr 15 mg PO QAM tab 11/11/20 [History Last Taken Unknown] sodium polystyrene sulfonate 15 gram-sorbitol 20 gram/60 mL oral susp 120 ml PO ONCE #473 ml 11/11/20 [Rx Last Taken Unknown] Allergy/AdvReac Type Severity Reaction Status Date / Time adhesive tape AdvReac TEARS SKIN Verified 09/24/20 14:41 Penicillins AdvReac Hives Verified 10/20/20 05:35 Family History Father Alcoholic Cirrhosis of liver Mother No pertinent past medical history Surgical History History of back surgery Presence of coronary angioplasty implant and graft (~09/17/20) S/P cholecystectomy Social History (Updated 11/13/20 @ 19:[address] Femi Jerome MD) household members: other details: Patient lives with her family, she has a 9 year old daughter via custody. Smoking Status: Never smoker alcohol intake: never substance use type: does not use ROS ROS ED Constitutional Constitutional ED: Denies chills, fever(s), subjective or sweats Eyes Eyes: Denies blurry vision, change in vision or diplopia ENT ENT ED: Denies ear pain or rhinorrhea Cardiovascular Cardiovascular: Denies chest pain or palpitations Respiratory/Chest Respiratory/Chest: Denies cough, dyspnea or dyspnea on exertion Gastrointestinal Gastrointestinal: Reports diarrhea; Denies abdominal pain, constipation, nausea or vomiting Genitourinary Genitourinary ED: Denies dysuria, hematuria or urinary frequency Musculoskeletal Musculoskeletal: Denies arthralgias, myalgias or neck pain Neurologic Neurologic: Denies headache(s), paresthesias or weakness Endocrine Endocrinology: Denies polydipsia, polyphagia or polyuria EXAM Physical Exam Const Vital Signs: 11/13/20 17:29 Temperature 98.8 F Temperature Source Temporal Pulse Rate 79 Respiratory Rate 18 Blood Pressure 114/54 L Blood Pressure Mean 74 Pulse Ox 98 Oxygen Delivery Method Room Air Positive well nourished and well developed General Appearance ED: well developed and NAD HEENT Reports TM's clear and moist mucous membranes HEENT Narrative: Head is atraumatic normocephalic. Tympanic Membrane ED: Yes TM's clear Eyes PERRL and EOMs intact bilaterally General Eye ED: Negative for pale conjunctiva or scleral icterus Neck no lymphadenopathy, supple and no JVD Chest Wall inspection of chest normal Resp normal respiratory effort and clear to auscultation bilaterally Effort and Inspection: pain with movement GI normal to inspection, nondistended, normoactive bowel sounds and non-tender Palpation: soft Back/Spine no CVA tenderness Cervical Spine: Negative for cervical spine tenderness Thoracic Spine / Upper Back: Negative for thoracic spinal tenderness or paraspinal muscle tenderness Neuro oriented x3, CN's II-XII intact bilaterally and no sensory deficits noted Sensorium / Orientation: alert Motor Exam: strength 5/5 throughout Psych mental status grossly normal Skin no rashes or lesions noted and no wounds MDM MDM MDM Narrative Medical decision making narrative: KG was obtained to assess for EKG changes none were noted. Basic metabolic panel is repeated. BUN and creatinine are elevated. She had chronic elevated BUN and creatinine. Potassium is normal at 5.0. Lab Data Labs: Laboratory Results - last 24 hr 11/13/20 17:30 Sodium 139 Potassium 5.0 Chloride 109 H Carbon Dioxide 22.0 Anion Gap 8 BUN 41 H Creatinine 1.76 H Estim Creat Clear Calc 21.80 Est GFR (MDRD) Af Amer 37 L Est GFR (MDRD) Non-Af 30 L BUN/Creatinine Ratio 23.3 H Glucose 133 H Calcium 8.7 EKG Initial EKG: Attestation: I personally reviewed and interpreted this EKG as follows: Interpretation: Sinus Rhythm (Ventricular rate is 74. There is premature atrial beats noted. MD interval is 170 ms. QS duration 118 ms. QT duration 410 ms. [place] is normal. There is no ossific ST-T wave changes. This is unchanged from prior.) Discharge Plan Triage Chief Complaint: Abn Labs ED Provider: Femi Jerome Dx/Rx/DC Orders Clinical Impression: Encounter for medical screening examination, History of hyperkalemia Instructions: ED Hyperkalemia Prescriptions: No Action tramadol 50 MG tablet 50 mg PO Q6H PRN PRN (Reason: Pain) RF: 0 aspirin [Adult Low Dose Aspirin] 81 mg tablet,delayed release (DR/EC) 81 mg PO DAILY RF: 0 metformin 1,000 mg tablet 1,000 mg PO BID RF: 0 pantoprazole 40 mg tablet,delayed release (DR/EC) 40 mg PO DAILY RF: 0 sertraline 25 mg tablet 25 mg PO DAILY RF: 0 metoprolol succinate 25 mg tablet extended release 24 hr 25 mg PO DAILY Qty: 90 RF: 3 rosuvastatin 40 mg tablet 40 mg PO DAILY Qty: 90 RF: 3 furosemide 40 mg tablet 40 mg PO DAILY Qty: 90 RF: 3 gabapentin 400 mg capsule 400 mg PO 4X/DAY RF: 0 Eliquis 5 mg tablet 5 mg PO BID RF: 0 isosorbide mononitrate 30 mg tablet extended release 24 hr 15 mg PO QAM RF: 0 Jardiance 10 mg tablet 10 mg PO DAILY RF: 0 sodium polystyrene sulf-sorbtl 15-20 gram/60 mL suspension 120 ml PO ONCE Qty: 473 RF: 0 Primary Care Provider: Donovan Bullock Referrals: Donovan Bullock MD [Primary Care Provider] - [facility] appointment Disposition Disposition: Home, Self Care
[2020-11-13 19:40] VITALS: PULSE 71; RESP 16
== END 2020-11-13 19:40 | disposition home or self-care (01) ==
PROVIDERS: Emergency Provider Emergency Medicine; PCP Family Medicine
DX: E87.5 Hyperkalemia (principal); I25.2 Old myocardial infarction; I25.10 Atherosclerotic heart disease of native coronary artery without angina pectoris; Z95.5 Presence of coronary angioplasty implant and graft
CPT/HCPCS: 80048; 93005; 99282; A4216

== ENCOUNTER → 2020-11-17 10:34 | Outpatient (CLI) | payer MEDICARE, SELFPAY ==
[2020-11-17 12:27] LABS: Anion Gap 10 (5-15); BUN 39 mg/dL (7-18); Calcium,Total 9.2 mg/dL (8.5-10.1); Chloride 103 mmol/L (98-107); Creatinine, Serum 1.95 mg/dL (0.55-1.02); EST Glomerular Filtration Rate 27 mL/min (>60); Est Glom Filt Rate - Afr Amer 32 mL/min (>60); Glucose 133 mg/dL (74-106); Sodium Level 139 mmol/L (136-145)
== END ==
PROVIDERS: PCP Family Medicine; Referring Provider Physician Assistant Medical; Visit Provider Physician Assistant Medical
DX: E87.1 Hypo-osmolality and hyponatremia (principal); I34.0 Nonrheumatic mitral (valve) insufficiency; I10 Essential (primary) hypertension; Z95.5 Presence of coronary angioplasty implant and graft
CPT/HCPCS: 36415; 80048

== ENCOUNTER → 2020-12-30 12:54 | Outpatient (CLI) | payer MEDICARE, SELFPAY ==
[2020-12-30 13:33] LABS: AST(SGOT) 36 U/L (15-37); Alanine Aminotransfer ALT/SGPT 20 U/L (13-56); Albumin, Serum 4.2 g/dL (3.2-5.0); Alkaline Phosphatase 95 U/L (45-117); Anion Gap 8 (5-15); BUN 32 mg/dL (7-18); BUN/Creat Ratio 17.4 RATIO (10-20); Calcium,Total 9.3 mg/dL (8.5-10.1); Chloride 104 mmol/L (98-107); Creatinine, Serum 1.84 mg/dL (0.55-1.02); EST Glomerular Filtration Rate 29 mL/min (>60); Est Glom Filt Rate - Afr Amer 35 mL/min (>60); Globulin 4.1 g/dL (2.2-4.2); Glucose 151 mg/dL (74-106); Potassium 4.9 mmol/L (3.5-5.1); Protein, Total 8.3 g/dL (6.4-8.2); Sodium Level 139 mmol/L (136-145)
== END ==
PROVIDERS: PCP Family Medicine
DX: I34.0 Nonrheumatic mitral (valve) insufficiency (principal)
CPT/HCPCS: 80053

== ENCOUNTER → 2021-01-12 11:19 | Outpatient (CLI) | payer MEDICARE, SELFPAY ==
[2021-01-12 11:46] LABS: Hematocrit 35.8 % (37-47); Hemoglobin 10.9 g/dL (12.0-15.0); Mean Corp Hgb Conc 30.4 g/dL (32-36); Mean Corpuscular Volume 88.6 fL (81-99); Mean Platelet Vol. 11.1 fl (6.2-12.0); Platelet Count 117 K/mm3 (150-450); RBC Distribution Width CV 15.9 % (11.6-14.6); RBC Distribution Width SD 51.5 fl (35.1-43.9); Red Blood Count 4.04 M/mm3 (4.2-5.4); White Blood Count 5.4 K/mm3 (4.4-11.0)
[2021-01-12 12:19] LABS: Anion Gap 6 (5-15); BUN 28 mg/dL (7-18); BUN/Creat Ratio 17.8 RATIO (10-20); Calcium,Total 9.4 mg/dL (8.5-10.1); Chloride 107 mmol/L (98-107); Creatinine, Serum 1.57 mg/dL (0.55-1.02); EST Glomerular Filtration Rate 34 mL/min (>60); Est Glom Filt Rate - Afr Amer 42 mL/min (>60); Glucose 129 mg/dL (74-106); Potassium 5.1 mmol/L (3.5-5.1); Sodium Level 138 mmol/L (136-145)
== END ==
PROVIDERS: PCP Family Medicine; Visit Provider Family Medicine
DX: I13.0 Hypertensive heart and chronic kidney disease with heart failure and stage 1 through stage 4 chronic kidney disease, or unspecified chronic kidney disease (principal); I50.20 Unspecified systolic (congestive) heart failure
CPT/HCPCS: 80048; 85027

== ENCOUNTER → 2021-02-08 14:53 | Outpatient (CLI) | payer MEDICARE, SELFPAY ==
--- NOTE | 2021-02-08 15:10 | RAD_ITS ---
STUDY: X-RAY CHEST REASON FOR EXAM: Female, 70 years old. Crackles right mid and bilateral bases TECHNIQUE: PA and lateral views of the chest. COMPARISON: 10/20/2020 FINDINGS: The lungs are clear and expanded. There is no demonstrated pleural abnormality. There is mild cardiac enlargement. Normal mediastinum and robert. Normal visualized pulmonary arteries. Normal visualized aortic arch and descending thoracic aorta. Normal visualized thoracic spine. Normal visualized ribs, clavicles, and shoulders. Spinal stimulator device is noted. There is no demonstrated abnormality of the visualized soft tissue structures of the upper abdomen. RAD/Chest PA and Lateral IMPRESSION: No acute cardiopulmonary disease Electronically Signed: Mal Judd DO at 3:44 EST Tel , Service support ,
[2021-02-08 16:19] LABS: Hematocrit 33.9 % (37-47); Hemoglobin 10.2 g/dL (12.0-15.0); Mean Corp Hgb Conc 30.1 g/dL (32-36); Mean Corpuscular Hgb 27.6 pg (27.0-32.0); Mean Corpuscular Volume 91.9 fL (81-99); Platelet Count 121 K/mm3 (150-450); RBC Distribution Width CV 18.6 % (11.6-14.6); RBC Distribution Width SD 62.6 fl (35.1-43.9); Red Blood Count 3.69 M/mm3 (4.2-5.4)
[2021-02-08 16:48] LABS: Anion Gap 8 (5-15); BUN 24 mg/dL (7-18); BUN/Creat Ratio 18.3 RATIO (10-20); Calcium,Total 9.1 mg/dL (8.5-10.1); Chloride 108 mmol/L (98-107); Creatinine, Serum 1.31 mg/dL (0.55-1.02); EST Glomerular Filtration Rate 42 mL/min (>60); Est Glom Filt Rate - Afr Amer 51 mL/min (>60); Glucose 105 mg/dL (74-106); Potassium 5.4 mmol/L (3.5-5.1); Sodium Level 139 mmol/L (136-145)
[2021-02-08 17:03] LABS: BNP,B-Type NATRIURETIC PEPTIDE 624.9 pg/mL (0-100)
== END ==
PROVIDERS: PCP Family Medicine; Visit Provider Physician Assistant Medical
DX: I25.2 Old myocardial infarction (principal); R60.9 Edema, unspecified; R06.02 Shortness of breath; N28.9 Disorder of kidney and ureter, unspecified; I34.0 Nonrheumatic mitral (valve) insufficiency; I48.91 Unspecified atrial fibrillation; D64.9 Anemia, unspecified; T14.8XXA Other injury of unspecified body region, initial encounter
CPT/HCPCS: 36415; 71046; 80048; 83880; 85027

== ENCOUNTER 2021-03-16 01:05 | Emergency (ER) | payer MEDICARE, SELFPAY ==
[2021-03-16 01:06] VITALS: BP 131/77; PULSE 76; RESP 18; TEMP 36.3; O2SAT 98; BMI 37.5
--- NOTE | 2021-03-16 01:11 | EDS_ITS ---
HPI HPI - URI History of Present Illness Chief Complaint: Nosebleed Informant: patient Onset/Context/Timing Onset: Today and Hours Context: Gradual Onset Timing: Continuous Current Severity: Mild Maximum Severity: Mild Associated Symptoms Associated Symptoms: Negative for Hemoptysis Narrative Narrative: 68-year-old female history of CAD, A. fib for which she is on Eliquis and aspirin. She has been on Eliquis the last 5+ months. States that on Monday about 12 hours ago she blew her nose and then started having a nosebleed. This initially started on the right than the left. She denies any trauma. She typically does not get nosebleeds. She is not on home oxygen. She denies any other bleeding. She has had no hematuria or significant bruising. No melena. Prior similar symptoms: Yes Recent Illness/Hospitalization: No ROS ROS ED ROS Narrative Denies recent illness. Review of Systems ROS Unobtainable: Denies due to encephalopathy Constitutional Constitutional ED: Denies fever(s) Eyes Eyes: Denies change in vision ENT ENT ED: Denies ear pain Cardiovascular Cardiovascular: Denies chest pain Respiratory/Chest Respiratory/Chest: Denies cough or dyspnea Gastrointestinal Gastrointestinal: Denies abdominal pain, diarrhea, nausea or vomiting Genitourinary Genitourinary ED: Denies dysuria Musculoskeletal Musculoskeletal: Denies myalgias Integumentary Denies rash Neurologic Neurologic: Denies headache(s) Psychiatric Psychiatric: Denies depression Endocrine Endocrinology: Denies polyuria Hematologic/Lymphatic Hematologic/Lymphatic: Denies easy bruising Allergic/Immunologic Allergic/Immunologic ED: Denies urticaria PFSH PFSH Medical History Atherosclerotic heart disease of [place] coronary artery without angina pectoris Atrial fibrillation Diabetes Hypertension Non-rheumatic mitral regurgitation Presence of stent in coronary artery (~09/17/20) Renal insufficiency Severe mitral valve regurgitation Home Medications tramadol 50 mg PO Q6H PRN PRN 11/04/18 [History Last Taken 10/19/20] aspirin 81 mg tablet,delayed release 81 mg PO DAILY 09/21/20 [History Last Taken 10/19/20] metformin 1,000 mg tablet 1,000 mg PO BID 09/21/20 [History Last Taken 10/19/20] pantoprazole 40 mg tablet,delayed release 40 mg PO DAILY 09/21/20 [History Last Taken 10/19/20] rosuvastatin 40 mg tablet 40 mg PO DAILY #90 tab 09/28/20 [Rx Last Taken 10/19/20] apixaban 5 mg tablet 5 mg PO BID 11/11/20 [History Last Taken Unknown] gabapentin 400 mg capsule 400 mg PO 4X/DAY PRN cap 12/28/20 [History Last Taken Unknown] empagliflozin 10 mg tablet 10 mg PO BID tab 12/29/20 [History Last Taken Unknown] isosorbide mononitrate 30 mg tablet,extended release 24 hr 30 mg PO QAM #90 tab 12/29/20 [Rx Last Taken Unknown] sertraline 100 mg tablet 100 mg PO DAILY 12/29/20 [History Last Taken Unknown] metoprolol succinate 25 mg tablet,extended release 24 hr 25 mg PO BID #180 tab 12/30/20 [Rx Last Taken Unknown] furosemide 40 mg tablet 40 mg PO BID tab 02/09/21 [History Last Taken Unknown] Allergy/AdvReac Type Severity Reaction Status Date / Time adhesive tape AdvReac TEARS SKIN Verified 03/16/21 01:11 Penicillins AdvReac Hives Verified 03/16/21 01:11 Family History Father Alcoholic Cirrhosis of liver Mother No pertinent past medical history Surgical History History of back surgery Presence of coronary angioplasty implant and graft (~09/17/20) S/P cholecystectomy Social History household members: other details: Patient lives with her family, she has a 9 year old daughter via custody. Smoking Status: Never smoker alcohol intake: never substance use type: does not use EXAM Physical Exam Narrative Exam Narrative: 68-year-old female no acute distress. Vital signs stable afebrile. H EENT exam no significant bleeding at this time from her nose. There does appear to be small dried blood on both anterior septums. More so on the right. There is some blood in the posterior pharynx not heavy bleeding and she spit out clot. Moist mucous membranes. Neck nontender. Lungs are clear. Heart regular rhythm rate about 70. Abdomen soft nontender. Moving all 4 extremities. Neurologically she is awake and alert. Const Vital Signs: 03/16/21 01:06 Temperature 97.3 F L Temperature Source Temporal Pulse Rate 76 Respiratory Rate 18 Blood Pressure 131/77 H Blood Pressure Mean 95 Pulse Ox 98 Oxygen Delivery Method Room Air Positive well nourished, well developed and obese; Negative for cachectic or contractures General Appearance ED: well developed and NAD; Negative for cachectic, contractures, cyanotic, diaphoretic or pallor Nutritional Appearance: obese; Negative for cachectic HEENT HEENT Narrative: Dried blood both nares. Clot in the posterior pharynx. No heavy bleeding at this time. normocephalic and atraumatic External Ear: external ears normal Eyes PERRL and EOMs intact bilaterally Neck no lymphadenopathy, supple, no meningeal signs and no JVD General: Negative for anterior neck swelling or lymphadenopathy Resp normal respiratory effort and clear to auscultation bilaterally Auscultation: Negative for rales, rhonchi or wheezes Cardio S1 normal heart sound, S2 normal heart sound and no murmurs Rate: regular rate Rhythm: regular rhythm GI non-tender, non-distended and no masses Auscultation: normoactive bowel sounds Palpation: soft; Negative for tender or guarding Extremity normal to inspection and full ROM General Extremety ED: Negative for cyanosis or tenderness General Extremity: Negative for cyanosis Neuro oriented x3 Sensorium / Orientation: alert, oriented to person, oriented to place and oriented to time; Negative for orientation impaired, lethargic or stuporous Motor Exam: strength 5/5 throughout Psych mental status grossly normal Mood & Affect: anxious and tearful Skin General Skin Exam: Negative for jaundice or pallor Lesions: no lesions Rashes: no rashes MDM MDM MDM Narrative Medical decision making narrative: 70-year-old female with a nosebleed. She is on Eliquis and aspirin for history of A. fib. I had her blow her nose. She has a small amount of blood oozing in the posterior pharynx. Placed Afrin-soaked cotton balls in both nares. Repeat exam the patient is doing well at 1:40 AM. Bleeding from the posterior pharynx is almost completely resolved. There is no active bleeding from either naris. I placed a anterior Merocel pack in the right. Discharge Plan Triage Chief Complaint: Nosebleed ED Provider: Jovi Hutton Dx/Rx/DC Orders Clinical Impression: Anterior epistaxis, Anticoagulated, History of atrial fibrillation, History of diabetes mellitus Instructions: ED Epistaxis (Adult) Prescriptions: No Action metoprolol succinate 25 mg tablet extended release 24 hr 25 mg PO BID Qty: 180 RF: 3 tramadol 50 MG tablet 50 mg PO Q6H PRN PRN (Reason: Pain) RF: 0 aspirin [Adult Low Dose Aspirin] 81 mg tablet,delayed release (DR/EC) 81 mg PO DAILY RF: 0 metformin 1,000 mg tablet 1,000 mg PO BID RF: 0 pantoprazole 40 mg tablet,delayed release (DR/EC) 40 mg PO DAILY PRN (Reason: Stomach Upset) RF: 0 rosuvastatin 40 mg tablet 40 mg PO DAILY Qty: 90 RF: 3 Eliquis 5 mg tablet 5 mg PO BID RF: 0 Hold Instructions: for 5 days: hematoma right upper arm gabapentin 400 mg capsule 400 mg PO 4X/DAY PRN (Reason: Pain) RF: 0 isosorbide mononitrate 30 mg tablet extended release 24 hr 30 mg PO QAM Qty: 90 RF: 4 Jardiance 10 mg tablet 10 mg PO BID RF: 0 sertraline 100 mg tablet 100 mg PO DAILY RF: 0 furosemide 40 mg tablet 40 mg PO BID RF: 0 Primary Care Provider: Donovan Bullock Referrals: Donovan Bullock MD [Primary Care Provider] - Lazarus Adler MD [STAFF PHYSICIAN] - 3-5 Days Activity Restrictions/Additional Instructions: Hold your Eliquis today being Monday and again on Monday and restart on . Also hold your aspirin today and tomorrow. Follow-up with ear nose and throat Dr. Lazarus Rojas or another physician's office in 2 to 3 days to have the packing removed and reevaluated. If it starts bleeding hold direct pressure if you are unable to get it stopped return to the emergency department. While the nose packs are in you need to be on antibiotic to prevent a sinus infection. Once the packing has been pulled antibiotic can be stopped. Disposition Disposition: Home, Self Care
[2021-03-16] MEDS: Oxymetazoline 0.05% 1 SPRAY SPRAY.BTL 2 SPRAY NASAL (01:13)
--- NOTE | 2021-03-16 02:02 | ED.RN ---
Patient walked to bathroom and back without rebleeding of the nose. D/C packet reviewed with patient and she is calling for ride home now.
[2021-03-16 02:03] VITALS: PULSE 74; RESP 18; O2SAT 98
== END 2021-03-16 02:04 | disposition home or self-care (01) ==
LOC: ED 01:34
PROVIDERS: Emergency Provider Emergency Medicine; PCP Family Medicine; Visit Provider Emergency Medicine
DX: R04.0 Epistaxis (principal); I48.91 Unspecified atrial fibrillation; E11.9 Type 2 diabetes mellitus without complications; I25.10 Atherosclerotic heart disease of native coronary artery without angina pectoris; I10 Essential (primary) hypertension; I34.0 Nonrheumatic mitral (valve) insufficiency; Z95.5 Presence of coronary angioplasty implant and graft; Z79.01 Long term (current) use of anticoagulants; Z79.82 Long term (current) use of aspirin; Z79.84 Long term (current) use of oral hypoglycemic drugs; Z79.899 Other long term (current) drug therapy; E66.9 Obesity, unspecified; Z68.37 Body mass index [BMI] 37.0-37.9, adult
CPT/HCPCS: 30905; 99284

== ENCOUNTER 2021-04-13 14:57 | Outpatient (CLI) | payer MEDICARE, SELFPAY ==
[2021-04-13 18:45] LABS: ALB/GLOB Ratio 0.9 RATIO (0.9-2.4); AST(SGOT) 18 U/L (15-37); Alanine Aminotransfer ALT/SGPT 12 U/L (13-56); Albumin, Serum 3.6 g/dL (3.2-5.0); Alkaline Phosphatase 86 U/L (45-117); Anion Gap 8 (5-15); BUN 28 mg/dL (7-18); BUN/Creat Ratio 14.8 RATIO (10-20); Calcium,Total 8.8 mg/dL (8.5-10.1); Chloride 104 mmol/L (98-107); Creatinine, Serum 1.89 mg/dL (0.55-1.02); EST Glomerular Filtration Rate 28 mL/min (>60); Est Glom Filt Rate - Afr Amer 34 mL/min (>60); Glucose 225 mg/dL (74-106); Potassium 4.7 mmol/L (3.5-5.1); Protein, Total 7.6 g/dL (6.4-8.2); Sodium Level 138 mmol/L (136-145); Thyroid Stim Hormone (TSH) 2.62 uIU/mL (0.358-3.74)
== END 2021-04-13 23:59 | disposition home or self-care (01) ==
PROVIDERS: PCP Family Medicine; Referring Provider Family Medicine; Visit Provider Family Medicine
DX: I50.22 Chronic systolic (congestive) heart failure (principal); K74.60 Unspecified cirrhosis of liver; I48.91 Unspecified atrial fibrillation
CPT/HCPCS: 36415; 80053; 83880; 84443

== ENCOUNTER 2021-04-28 16:16 | Outpatient (CLI) | payer MEDICARE, SELFPAY ==
[2021-04-28 16:56] LABS: Anion Gap 13 (5-15); BUN 37 mg/dL (7-18); BUN/Creat Ratio 17.4 RATIO (10-20); Calcium,Total 9.1 mg/dL (8.5-10.1); Chloride 101 mmol/L (98-107); Creatinine, Serum 2.13 mg/dL (0.55-1.02); EST Glomerular Filtration Rate 24 mL/min (>60); Est Glom Filt Rate - Afr Amer 29 mL/min (>60); Glucose 382 mg/dL (74-106); Magnesium 2.1 mg/dL (1.6-2.6); Potassium 4.5 mmol/L (3.5-5.1); Sodium Level 135 mmol/L (136-145)
[2021-04-28 17:22] LABS: BNP,B-Type NATRIURETIC PEPTIDE 846.4 pg/mL (0-100)
== END 2021-04-28 23:59 | disposition home or self-care (01) ==
PROVIDERS: PCP Family Medicine; Visit Provider Nurse Practitioner Adult Health
DX: I13.0 Hypertensive heart and chronic kidney disease with heart failure and stage 1 through stage 4 chronic kidney disease, or unspecified chronic kidney disease (principal); I50.43 Acute on chronic combined systolic (congestive) and diastolic (congestive) heart failure; N18.9 Chronic kidney disease, unspecified
CPT/HCPCS: 80048; 83735; 83880

== ENCOUNTER → 2021-05-31 | Outpatient (CLI) | payer MEDICARE, SELFPAY ==
[2021-05-31 15:32] LABS: Anion Gap 9 (5-15); BUN 41 mg/dL (7-18); BUN/Creat Ratio 17.7 RATIO (10-20); Calcium,Total 8.4 mg/dL (8.5-10.1); Chloride 101 mmol/L (98-107); Creatinine, Serum 2.32 mg/dL (0.55-1.02); EST Glomerular Filtration Rate 22 mL/min (>60); Est Glom Filt Rate - Afr Amer 27 mL/min (>60); Glucose 175 mg/dL (74-106); Potassium 4.7 mmol/L (3.5-5.1); Sodium Level 135 mmol/L (136-145)
[2021-05-31 15:34] LABS: Hematocrit 28.5 % (37-47); Hemoglobin 8.7 g/dL (12.0-15.0); Mean Corp Hgb Conc 30.5 g/dL (32-36); Mean Corpuscular Hgb 29.2 pg (27.0-32.0); Mean Corpuscular Volume 95.6 fL (81-99); Mean Platelet Vol. 10.4 fl (6.2-12.0); Platelet Count 157 K/mm3 (150-450); RBC Distribution Width CV 17.5 % (11.6-14.6); RBC Distribution Width SD 61.6 fl (35.1-43.9); Red Blood Count 2.98 M/mm3 (4.2-5.4); White Blood Count 6.8 K/mm3 (4.4-11.0)
== END | disposition home or self-care (01) ==
PROVIDERS: PCP Family Medicine; Referring Provider Family Medicine; Visit Provider Nurse Practitioner Adult Health
DX: I34.0 Nonrheumatic mitral (valve) insufficiency (principal)
CPT/HCPCS: 36415; 80048; 85027

== ENCOUNTER → 2021-06-29 | Outpatient (CLI) | payer MEDICARE, SELFPAY ==
[2021-06-29 15:37] LABS: Absolute Lymphocyte Count 0.83 X10^3/uL (0.83-4.51); Absolute Neutrophil Count 3.7 X10^3/uL (2.0-7.7); Basophil# 0.04 X10^3/uL; Basophil% 0.8 % (0-1); Eosinophil# 0.12 X10^3/uL; Eosinophils% 2.3 % (0-5); Hematocrit 29.4 % (37-47); Hemoglobin 8.9 g/dL (12.0-15.0); Lymphocyte # 0.83 X10^3/ul (0.83-4.51); Mean Corp Hgb Conc 30.3 g/dL (32-36); Mean Corpuscular Hgb 28.9 pg (27.0-32.0); Mean Corpuscular Volume 95.5 fL (81-99); Mean Platelet Vol. 10.5 fl (6.2-12.0); Monocyte# 0.48 X10^3/uL; Monocyte% 9.2 % (0-10); NRBC Flagged by Analyzer 0 % (0-5); Neutrophil # 3.71 X10^3/uL (2.7-7.7); Neutrophil % 71.3 % (47-70); Platelet Count 134 K/mm3 (150-450); RBC Distribution Width CV 17.3 % (11.6-14.6); RBC Distribution Width SD 60.5 fl (35.1-43.9); Red Blood Count 3.08 M/mm3 (4.2-5.4); White Blood Count 5.2 K/mm3 (4.4-11.0)
[2021-06-29 15:47] LABS: ALB/GLOB Ratio 0.8 RATIO (0.9-2.4); AST(SGOT) 20 U/L (15-37); Alanine Aminotransfer ALT/SGPT 12 U/L (13-56); Albumin, Serum 3.8 g/dL (3.2-5.0); Alkaline Phosphatase 87 U/L (45-117); Amylase 84 U/L (25-115); Anion Gap 8 (5-15); BUN 40 mg/dL (7-18); BUN/Creat Ratio 15.6 RATIO (10-20); Calcium,Total 9.4 mg/dL (8.5-10.1); Chloride 98 mmol/L (98-107); Creatinine, Serum 2.57 mg/dL (0.55-1.02); EST Glomerular Filtration Rate 19 mL/min (>60); Est Glom Filt Rate - Afr Amer 24 mL/min (>60); Globulin 4.5 g/dL (2.2-4.2); Glucose 224 mg/dL (74-106); Lipase 446 U/L (73-393); Potassium 4.3 mmol/L (3.5-5.1); Protein, Total 8.3 g/dL (6.4-8.2); Sodium Level 135 mmol/L (136-145)
[2021-06-29 16:41] LABS: BNP,B-Type NATRIURETIC PEPTIDE 677.3 pg/mL (0-100)
== END | disposition home or self-care (01) ==
LOC: MFPLAB 12:08
PROVIDERS: PCP Family Medicine; Referring Provider Family Medicine; Visit Provider Family Medicine
DX: R11.0 Nausea (principal); I50.22 Chronic systolic (congestive) heart failure
CPT/HCPCS: 36415; 80053; 82150; 83690; 83880; 85025